=== PATIENT | female | born 1935 | race African-American/Black ===

== ENCOUNTER 2019-08-05 21:53 | Inpatient (IN) | payer MEDICARE, MEDICAID ==
[~2019-08-05] VITALS: Ht 154.9 cm; Wt 43.1 kg
--- NOTE | 2019-08-05 21:50 | NUR ---
ED Nurse Note: pt brought in by [facility] unit # [id number]. per EMS, pt was transferred from [facility] d/t FTT x 1 day. pt had low grade fever and was given 500mg of tylenol.
[2019-08-05 21:53] VITALS: BP 142/73
--- NOTE | 2019-08-05 22:00 | NUR ---
ED Nurse Note: pt on monitor tech, iv line established, pt was cleaned and dressed, linens changed. blood and urine sample sent to lab. bed placed at lowest position. x 2 agronomist rails.
[2019-08-05] MEDS ORDERED: POTASSIUM CHLO20 ME2 ORAL (22:03)
[2019-08-05] MEDS ORDERED: REMERON15 M1 ORAL (22:03)
[2019-08-05] MEDS ORDERED: ACETAMINOPHEN325 M1 ORAL (22:03)
[2019-08-05] MEDS ORDERED: MIRTAZAPINE15 MG ORAL (22:03)
[2019-08-05] MEDS ORDERED: VITAMIN B-12100 MCG ORAL (22:03)
[2019-08-05] MEDS ORDERED: COLACE100 MG ORAL (22:03)
[2019-08-05] MEDS ORDERED: MILK OF MA400 MG/51 ORAL (22:03)
[2019-08-05] MEDS ORDERED: COSOPT EYE DROP10 M1 OP (22:03)
[2019-08-05] MEDS ORDERED: DULCOLAX10 MG RC (22:03)
[2019-08-05] MEDS ORDERED: MULTIVITAMINS1 EAC8 ORAL (22:03)
[2019-08-05] MEDS ORDERED: FLEET ENEMA133 M1 RC (22:03)
[2019-08-05] MEDS ORDERED: ACETAMINOPHEN500 M3 ORAL (22:03)
[2019-08-05] MEDS ORDERED: NOVOLIN R100 UNIT/1 SUBQ (22:03)
[2019-08-05 22:24] LABS: BASOPHILS % (AUTO) 0.5 % (0.0-2.0); EOSINOPHILS % (AUTO) 0.6 % (0.0-3.0); HEMATOCRIT 42.8 % (37.0-47.0); HEMOGLOBIN 14.2 G/DL (12.0-16.0); LYMPHOCYTES % (AUTO) 24.9 % (20.0-45.0); MEAN CORPUSCULAR VOLUME 92 FL (80-99); MONOCYTES % (AUTO) 8.1 % (1.0-10.0); PLATELET COUNT 213 K/UL (150-450); RED BLOOD COUNT 4.67 M/UL (4.20-5.40); RED CELL DISTRIBUTION WIDTH 12.5 % (11.6-14.8); WHITE BLOOD COUNT 8.9 K/UL (4.8-10.8)
[2019-08-05 22:32] LABS: ANION GAP 8 mmol/L (5-15); BLOOD UREA NITROGEN 18 mg/dL (7-18); CALCIUM 9.2 MG/DL (8.5-10.1); CARBON DIOXIDE 27 MMOL/L (21-32); CHLORIDE 106 MMOL/L (98-107); CREATININE 0.5 MG/DL (0.55-1.30); SODIUM 141 MMOL/L (136-145)
--- NOTE | 2019-08-05 22:34 | Emergency Room Report ---
History of Present Illness General Chief Complaint: General Complaint Source: Medical Record Present Illness HPI 84-year-old female presents ED for evaluation. Brought in by EMS from nursing home facility. Reportedly having reduced appetite with possible fever at facility over the last few days. Patient nonverbal at baseline. Unable to provide any additional history at this time. No reported signs of distress on arrival. No nausea or vomiting. No cough or congestion. No other aggravating relieving factors. No other associated symptoms Allergies: Coded Allergies: LISINOPRIL (Verified Allergy, Unknown, 08/05/19) Patient History Past Medical History: DM Past Surgical History: none Pertinent Family History: none Social History: Denies: smoking, alcohol use, drug use Now: No Immunizations: UTD Reviewed Nursing Documentation: PMH: Agreed; PSxH: Agreed Nursing Documentation-PMH Past Medical History: No History, Except For Hx Diabetes: Yes Review of Systems All Other Systems: limited Physical Exam Vital Signs Date Time Temp Pulse Resp B/P (MAP) Pulse Ox O2 Delivery O2 Flow Rate FiO2 08/05/19 21:45 99.5 52 16 142/73 (96) 97 Room Air Sp02 EP Interpretation: reviewed, normal General Appearance: cachetic, lethargic, thin Head: normocephalic Eyes: bilateral eye normal inspection, bilateral eye PERRL ENT: normal ENT inspection Neck: normal inspection Respiratory: chest non-tender, lungs clear, normal breath sounds, speaking full sentences Cardiovascular #1: regular rate, rhythm, no edema Gastrointestinal: normal bowel sounds, non tender, soft, non-distended, no guarding, no rebound Rectal: deferred Genitourinary: no CVA tenderness Musculoskeletal: normal inspection Neurologic: other - nonverbal Psychiatric: other - nonverbal Skin: other - see nursing notes Lymphatic: normal inspection Medical Decision Making Diagnostic Impression: Primary Impression: Failure to thrive Qualified Codes: R62.7 - Adult failure to thrive Additional Impressions: Weakness UTI (urinary tract infection) Qualified Codes: N39.0 - Urinary tract infection, site not specified ER Course Hospital Course 84-year-old female presenting to ED with generalized weakness, poor appetite, reported fever Differential diagnoses include: Pneumonia, UTI, sepsis, dehydration, [place]/ unstable angina, failure to thrive Clinical course Patient placed on stretcher. On site monitor with stable vitals. After initial history and physical, I ordered labs, IV fluids, EKG, chest x-ray, blood cultures, UA. Labs - no leukocytosis, hb/hct stable, electrolytes ok, UA + bacteria EKG - NSR, no acute ischemic changes interpreted by me CXR - no acute process IVFs + abx given. Case discussed with Dr Saldivar and they agreed to admit patient to their service for further care and support I feel this is a highly complex case requiring extensive working including EKG/ Rhythm strip, Xray/CT/US, Blood/urine lab work, repeat exams while in ED, and administration of strong opiates/narcotics for pain control, admission to hospital or close patient follow up. Diagnosis - failure to thrive, weakness, UTI Patient admitted to floor in serious condition Labs Test 08/05/19 22:06 08/05/19 22:10 Urine Color Pale yellow Urine Appearance Clear Urine pH 5 (4.5-8.0) Urine Specific [place] 1.010 (1.005-1.035) Urine Protein Negative (NEGATIVE) Urine Glucose (UA) Negative (NEGATIVE) Urine Ketones Negative (NEGATIVE) Urine Blood 1+ (NEGATIVE) Urine Nitrite Negative (NEGATIVE) Urine Bilirubin Negative (NEGATIVE) Urine Urobilinogen Normal MG/DL (0.0-1.0) Urine Leukocyte Esterase 3+ (NEGATIVE) Urine RBC 0-2 /HPF (0 - 2) Urine WBC 30-40 /HPF (0 - 2) Urine Squamous Epithelial Cells None /LPF (NONE/OCC) Urine Bacteria Moderate /HPF (NONE) White Blood Count 8.9 K/UL (4.8-10.8) Red Blood Count 4.67 M/UL (4.20-5.40) Hemoglobin 14.2 G/DL (12.0-16.0) Hematocrit 42.8 % (37.0-47.0) Mean Corpuscular Volume 92 FL (80-99) Mean Corpuscular Hemoglobin 30.5 PG (27.0-31.0) Mean Corpuscular Hemoglobin Concent 33.3 G/DL (32.0-36.0) Red Cell Distribution Width 12.5 % (11.6-14.8) Platelet Count 213 K/UL (150-450) Mean Platelet Volume 6.8 FL (6.5-10.1) Neutrophils (%) (Auto) 66.0 % (45.0-75.0) Lymphocytes (%) (Auto) 24.9 % (20.0-45.0) Monocytes (%) (Auto) 8.1 % (1.0-10.0) Eosinophils (%) (Auto) 0.6 % (0.0-3.0) Basophils (%) (Auto) 0.5 % (0.0-2.0) Sodium Level 141 MMOL/L (136-145) Potassium Level 4.0 MMOL/L (3.5-5.1) Chloride Level 106 MMOL/L (98-107) Carbon Dioxide Level 27 MMOL/L (21-32) Anion Gap 8 mmol/L (5-15) Blood Urea Nitrogen 18 mg/dL (7-18) Creatinine 0.5 MG/DL (0.55-1.30) Estimat Glomerular Filtration Rate mL/min (>60) Glucose Level 95 MG/DL (74-106) Lactic Acid Level 0.80 mmol/L (0.4-2.0) Calcium Level 9.2 MG/DL (8.5-10.1) Total Bilirubin 0.6 MG/DL (0.2-1.0) Aspartate Amino Transf (AST/SGOT) 17 U/L (15-37) Alanine Aminotransferase (ALT/SGPT) 11 U/L (12-78) Alkaline Phosphatase 121 U/L (46-116) Pro-B-Type Natriuretic Peptide 501 pg/mL (0-125) Total Protein 7.3 G/DL (6.4-8.2) Albumin 3.2 G/DL (3.4-5.0) Globulin 4.1 g/dL Albumin/Globulin Ratio 0.8 (1.0-2.7) EKG Diagnostic Results Rate: normal Rhythm: NSR ST Segments: no acute changes ASA given to the pt in ED: No Rhythm Strip Diag. Results EP Interpretation: yes Rhythm: NSR, no PVC's, no ectopy Chest X-Ray Diagnostic Results Chest X-Ray Diagnostic Results : Chest X-Ray Ordered: Yes # of Views/Limited/Complete: 1 View Indication: Other EP Interpretation: Yes Interpretation: no consolidation, no effusion, no pneumothorax, no acute cardiopulmonary disease Impression: No acute disease Electronically Signed by: Electronically signed by Christ Valencia MD Last Vital Signs Date Time Temp Pulse Resp B/P (MAP) Pulse Ox O2 Delivery O2 Flow Rate FiO2 08/05/19 21:45 99.5 52 16 142/73 (96) 97 Room Air Status: improved Disposition: ADMITTED INPATIENT Condition: Serious Christ Valencia MD Aug 05, 2019 22:34
--- NOTE | 2019-08-05 22:35 | NUR ---
ED Nurse Note: xray at bedside
[2019-08-05 22:37] LABS: APPEARANCE,URINE CLEAR; BILIRUBIN, URINE NEGATIVE (NEGATIVE); COLOR,URINE PALE YELLOW; GLUCOSE, URINE (UA) NEGATIVE (NEGATIVE); KETONES,URINE NEGATIVE (NEGATIVE); LEUKOCYTE ESTERASE ,URINE 3+ (NEGATIVE); NITRITE,URINE NEGATIVE (NEGATIVE); PH,URINE 5 (4.5-8.0); PROTEIN,URINE NEGATIVE (NEGATIVE); UROBILINOGEN,URINE NORMAL MG/DL (0.0-1.0)
--- NOTE | 2019-08-05 22:40 | NUR ---
ED Nurse Note: xray completed
[2019-08-05 22:43] LABS: ALANINE AMINOTRANSFERASE 11 U/L (12-78); ALBUMIN 3.2 G/DL (3.4-5.0); ALBUMIN/GLOBULIN RATIO 0.8 (1.0-2.7); ALKALINE PHOSPHATASE 121 U/L (46-116); ASPARTATE AMINO TRANSFERASE 17 U/L (15-37); BILIRUBIN,TOTAL 0.6 MG/DL (0.2-1.0)
--- NOTE | 2019-08-05 22:51 | NUR ---
ED Nurse Note: son and daughter in law (jigna, and lashay) at bedside with pt.
--- NOTE | 2019-08-05 23:31 | NUR ---
ED Nurse Note: TELEPHONE REPORT GIVEN TO VIGNSEH GRIER
[2019-08-05] MEDS ORDERED: cefTRIAXone 1 GM in NS 55 ML IVPB ONE (23:45)
--- NOTE | 2019-08-05 23:50 | NUR ---
ED Nurse Note: pt sent up with biju adams. pt on room air, vss, pt has no belongings. pt shows no acute signs of distress. family at bedside.
[2019-08-06] VITALS: BP 133/75
--- NOTE | 2019-08-06 | NUR ---
NURSE NOTES: Patient received from EMT Tanner. On room air with no s/s of SOB. Yellow urine draining via Conway catheter. Right forearm 20g IV intact and asymptomatic. Small 1cm skin alteration found on coccyx area. Photos taken and uploaded to file. Patient is nonverbal and confused. She is bedbound with bilateral lower extremity contractures. Patient had loose stool x1. C.Diff sample was obtained and sent to lab. No admission orders at time. Called Doctor Yariel and endorsed to night staff. Reached out to doctor Jemma reached out as well. Family at bedside.
[2019-08-06 04:00] VITALS: BP 151/59
[2019-08-06 08:00] VITALS: BP 161/72
--- NOTE | 2019-08-06 08:02 | NUR ---
HAND-OFF: Report given VIGNESH Harper. Patient in bed in stable condition.
[2019-08-06] MEDS ORDERED: Miralax 17gm pkt ORAL PRN (08:30)
[2019-08-06] MEDS ORDERED: LORazepam Inj 2mg/ml 1ml IV PRN (08:30)
[2019-08-06] MEDS ORDERED: Zolpidem 5mg tab ORAL PRN (08:30)
[2019-08-06] MEDS ORDERED: Morphine Sulfate 2mg/ml Inj(IV/IM USE ONLY) IVP PRN (08:30)
[2019-08-06] MEDS: Heparin 5000 units/ml inj SUBQ SCH ×2 (08:53→21:36)
--- NOTE | 2019-08-06 09:42 | NUR ---
NURSE NOTES: Received pt from VIGNESH GRIER at 0730. Pt is confused and non verbal. pt is in RA, no SOB or acute respiratory distress noted. pt has intact iv access RFA 20G SL. Pt has Conway cath in place and running well. a PHYSIOLOGY TEACHER fed breakfast to pt. pt is on calorie count. Dr POLLARD is aware about admission and put admission orders. all needs attended, bed is locked and is in the lowest position. call light within easy reach. will continue to monitor.
--- NOTE | 2019-08-06 09:51 | NUR ---
RD ASSESSMENT & RECOMMENDATIONS SEE CARE ACTIVITY FOR COMPLETE ASSESSMENT DAILY ESTIMATED NEEDS: Needs based on Wound, 46kg 30-35 kcals/kg 6178-2535 total kcals 1.25-1.5 g protein/kg 58-69 g total protein 25-30 mL/kg 6297-0720 total fluid mLs NUTRITION DIAGNOSIS: Increased kcal and pro needs r/t wound healing as evidenced by pt w/ coccyx pressure ulcer, w/ generalized mild to moderate wasting. CURRENT DIET: Regular puree w/ HTL PO DIET RECOMMENDATIONS: Liberalized Regular diet / texture per CASSEROLE PREPARER ADDITIONAL RECOMMENDATIONS: 1) Obtain calibrated bed scale wts 2) F/up w/ kcal count 3) Add Ensure Enlive TID w/ meals 4) CASSEROLE PREPARER for appropriate texture 5) Wound care: add Shiraz BID + Vit C 250mg daily F/up w/ WC eval
--- NOTE | 2019-08-06 11:06 | Consultation ---
History of Present Illness General Date patient seen: Aug 06, 2019 Time patient seen: 10:05 Chief Complaint: General Complaint Referring physician: Dr Saldivar Reason for Consultation: hospitalist Present Illness HPI 84 year, resident of intermediate facility, with past medical history of HTN , asthma, diabetes mellitus, DNR status, presented with reported fever and reduced appetite for the several days. Patient nonverbal at baseline and unable to provide any history. No nausea or vomiting were reported. No cough or congestion were reported. Upon evaluation patient had low-grade fever 99.5 was bradycardic with a heart rate 52. EKG reveals sinus bradycardia no acute ischemic changes. Chest x-ray revealed no acute cardiopulmonary pathology. Urinalysis revealed pyuria moderate bacteria laboratory work-up revealed no leukocytosis stable hemoglobin hematocrit. Stable chemistry and renal parameters. Glucose 95. Lactic acid 0.8. Stable LFT. proBNP 501 albumin 3.2 in the emergency department patient started on the IV fluids and empiric antibiotics admitted for further management. S old female Allergies: Coded Allergies: LISINOPRIL (Verified Allergy, Unknown, 08/05/19) Medication History Scheduled Cyanocobalamin (Vitamin B-12), 500 MCG ORAL DAILY, (Reported) Docusate Sodium* (Colace*), 100 MG ORAL DAILY, (Reported) Dorzolamide Hcl/Timolol Maleat (Cosopt Eye Drops), 10 ML OP BID, (Reported) Insulin Regular, Human* (Novolin R*), 0 SUBQ .SLIDING SCALE, (Reported) Magnesium Hydroxide* (Milk Of Magnesia*), 30 ML ORAL DAILY, (Reported) Mirtazapine (Remeron), 15 MG ORAL BEDTIME, (Reported) Mirtazapine* (Remeron*), 7.5 MG ORAL BEDTIME, (Reported) Multivitamin With Minerals (Multivitamins With Minerals*), 1 TAB ORAL DAILY, ( Reported) Potassium Chloride (Potassium Chloride), 7.5 ML ORAL QHS, (Reported) Scheduled PRN Acetaminophen* (Acetaminophen 325MG Tablet*), 650 MG ORAL Q4H PRN for Mild Pain (Pain Scale 1-3), (Reported) Acetaminophen* (Acetaminophen Extra Strength*), 1,000 MG ORAL Q4H PRN for Moderate Pain (Pain Scale 4-6), (Reported) Na Phos,M-B/Na Phos,Di-Ba (Fleet Enema), 133 ML RC PRN PRN for Constipation, ( Reported) Miscellaneous Medications Bisacodyl (Dulcolax), 10 MG RC, (Reported) Patient History History Provided By: Medical Record Healthcare decision maker Nica Peralta Resuscitation status Do Not Resuscitate Advanced Directive on File No Review of Systems ROS Narrative unable to obtain due to nonverbal status Physical Exam General Appearance: no apparent distress, cachetic, other - awake, nonverbal AA female in NAD Lines, tubes and drains: peripheral HEENT: normocephalic, atraumatic, anicteric Neck: non-tender, supple Respiratory/Chest: lungs clear, no respiratory distress, no accessory muscle use Cardiovascular/Chest: bradycardia Abdomen: normal bowel sounds, non tender, soft Extremities: no calf tenderness, no edema, other - contracted BLE Neurologic: abnormal gait, alert - nonverbal Musculoskeletal: atrophy Last 24 Hour Vital Signs Date Time Temp Pulse Resp B/P (MAP) Pulse Ox O2 Delivery O2 Flow Rate FiO2 08/06/19 08:00 98.4 60 17 161/72 (101) 96 08/06/19 04:00 97.3 52 18 151/59 (89) 99 08/06/19 01:50 Room Air 08/06/19 00:00 97.3 73 16 133/75 (94) 99 08/05/19 23:50 99.2 56 13 140/69 100 Room Air 08/05/19 21:53 99.5 56 22 142/73 98 Room Air 08/05/19 21:53 56 22 Room Air 08/05/19 21:45 99.5 52 16 142/73 (96) 97 Room Air Intake and Output 08/05/19 08/06/19 19:00 07:00 Intake Total 1000 ml Output Total 450 ml Balance 550 ml Intake Oral 0 ml IV Total 1000 ml Output Urine Total 450 ml # Voids 1 # Bowel Movements 4 Laboratory Tests Test 08/05/19 22:06 08/05/19 22:10 Urine Color Pale yellow Urine Appearance Clear Urine pH 5 (4.5-8.0) Urine Specific [place] 1.010 (1.005-1.035) Urine Protein Negative (NEGATIVE) Urine Glucose (UA) Negative (NEGATIVE) Urine Ketones Negative (NEGATIVE) Urine Blood 1+ (NEGATIVE) H Urine Nitrite Negative (NEGATIVE) Urine Bilirubin Negative (NEGATIVE) Urine Urobilinogen Normal MG/DL (0.0-1.0) Urine Leukocyte Esterase 3+ (NEGATIVE) H Urine RBC 0-2 /HPF (0 - 2) Urine WBC 30-40 /HPF (0 - 2) H Urine Squamous Epithelial Cells None /LPF (NONE/OCC) Urine Bacteria Moderate /HPF (NONE) H White Blood Count 8.9 K/UL (4.8-10.8) Red Blood Count 4.67 M/UL (4.20-5.40) Hemoglobin 14.2 G/DL (12.0-16.0) Hematocrit 42.8 % (37.0-47.0) Mean Corpuscular Volume 92 FL (80-99) Mean Corpuscular Hemoglobin 30.5 PG (27.0-31.0) Mean Corpuscular Hemoglobin Concent 33.3 G/DL (32.0-36.0) Red Cell Distribution Width 12.5 % (11.6-14.8) Platelet Count 213 K/UL (150-450) Mean Platelet Volume 6.8 FL (6.5-10.1) Neutrophils (%) (Auto) 66.0 % (45.0-75.0) Lymphocytes (%) (Auto) 24.9 % (20.0-45.0) Monocytes (%) (Auto) 8.1 % (1.0-10.0) Eosinophils (%) (Auto) 0.6 % (0.0-3.0) Basophils (%) (Auto) 0.5 % (0.0-2.0) Sodium Level 141 MMOL/L (136-145) Potassium Level 4.0 MMOL/L (3.5-5.1) Chloride Level 106 MMOL/L (98-107) Carbon Dioxide Level 27 MMOL/L (21-32) Anion Gap 8 mmol/L (5-15) Blood Urea Nitrogen 18 mg/dL (7-18) Creatinine 0.5 MG/DL (0.55-1.30) L Estimat Glomerular Filtration Rate mL/min (>60) Glucose Level 95 MG/DL (74-106) Lactic Acid Level 0.80 mmol/L (0.4-2.0) Calcium Level 9.2 MG/DL (8.5-10.1) Total Bilirubin 0.6 MG/DL (0.2-1.0) Aspartate Amino Transf (AST/SGOT) 17 U/L (15-37) Alanine Aminotransferase (ALT/SGPT) 11 U/L (12-78) L Alkaline Phosphatase 121 U/L (46-116) H Pro-B-Type Natriuretic Peptide 501 pg/mL (0-125) H Total Protein 7.3 G/DL (6.4-8.2) Albumin 3.2 G/DL (3.4-5.0) L Globulin 4.1 g/dL Albumin/Globulin Ratio 0.8 (1.0-2.7) L Microbiology Date/Time Source Procedure Growth Status 08/05/19 22:30 Rectum Received Height (Feet): 5 Height (Inches): 1.00 Weight (Pounds): 101 Medications Current Medications Medications (Trade) Dose Ordered Sig/Patricia Route PRN Reason Start Time Stop Time Status Last Admin Dose Admin Acetaminophen (Tylenol) 650 mg Q4H PRN ORAL fever 08/06/19 08:30 09/05/19 08:29 Ceftriaxone Sodium 1 gm/ Dextrose 55 ml @ 110 mls/hr Q24H IVPB 08/06/19 21:00 08/13/19 20:59 Dextrose (Dextrose 50%) 25 ml Q30M PRN IV Hypoglycemia 08/06/19 08:30 09/05/19 08:29 Dextrose (Dextrose 50%) 50 ml Q30M PRN IV Hypoglycemia 08/06/19 08:30 09/05/19 08:29 Heparin Sodium (Porcine) (Heparin 5000 units/ml) 5,000 units EVERY 12 HOURS SUBQ 08/06/19 09:00 09/05/19 08:59 08/06/19 08:53 Lorazepam (Ativan 2mg/ml 1ml) 0.5 mg Q4H PRN IV For Anxiety 08/06/19 08:30 08/13/19 08:29 Morphine Sulfate (Morphine Sulfate) 1 mg Q4H PRN IVP For Pain 08/06/19 08:30 08/13/19 08:29 Ondansetron HCl (Zofran) 4 mg Q6H PRN IVP Nausea & Vomiting 08/06/19 08:30 09/05/19 08:29 Polyethylene Glycol (Miralax) 17 gm HSPRN PRN ORAL Constipation 08/06/19 08:30 09/05/19 08:29 Zolpidem Tartrate (Ambien) 5 mg HSPRN PRN ORAL Insomnia 08/06/19 08:30 08/13/19 08:29 Assessment/Plan Assessment/Plan: ASSESSMENT UTI Cachexia, likely protein calorie malnutrition HTN Bradycardia Asthma Contractures PLAN OF CARE MS floor gentle IVF empiric abx, fup with cx dietary eval BP management- add Cozaar, along with Clonidine prn, optimize further as needed ECG this am due to coby O2 HHN prn, no evidence of asthma exacerbation DVT prophylaxis BS management with SSI sensitive check HgA1c swallow eval asp precautions PT eval and Rx bowel regimen supportive care case discussed and evaluated by supervising physician Kallie Mendoza NP Aug 06, 2019 11:06
[2019-08-06] MEDS ORDERED: Albuterol/Ipratropium 3ml neb HHN PRN (11:15)
[2019-08-06] MEDS: NovoLOG Insulin Flexpen SUBQ SCH ×3 (11:30→21:00)
[2019-08-06 11:56] VITALS: BP 151/86
[2019-08-06] MEDS: Losartan 25mg tab ORAL SCH (12:01)
--- NOTE | 2019-08-06 13:30 | Consultation ---
DATE OF CONSULTATION: 08/06/2019 CONSULTING PHYSICIAN: Víctor Fonseca M.D. CHIEF COMPLAINT: Failure to thrive. HISTORY OF PRESENT ILLNESS: Most of the history was obtained per chart. The patient is nonverbal. The patient was brought by from the nursing facility for decreased p.o. intake and altered. PAST MEDICAL HISTORY: Diabetes and hypertension. PAST SURGICAL HISTORY: Unknown. ALLERGIES: No known drug allergies. MEDICATIONS: Please see medication reconciliation list. SOCIAL HISTORY: Currently lives in a shelter. No recent history of tobacco, alcohol, or drug abuse. FAMILY HISTORY: Noncontributory. REVIEW OF SYSTEMS: Unable to obtain. PHYSICAL EXAMINATION: VITAL SIGNS: Temperature 97.3, pulse 52, respirations 18, blood pressure is . HEENT: Normocephalic and atraumatic. Sclerae anicteric. NECK: Supple. No evidence of obvious lymphadenopathy. CARDIOVASCULAR: Regular rate and rhythm. Plus S1 and S2. No obvious murmur. LUNGS: Decreased breath sounds bilaterally based on the supine exam. ABDOMEN: Soft and nontender. No rebound. No guarding. No peritoneal sign. EXTREMITIES: No cyanosis. No clubbing. No edema. LABORATORY DATA: White count is 8.9, hemoglobin 14, hematocrit 42, platelets are 213,000. Chem-7 grossly normal. ASSESSMENT AND PLAN: This is an 84-year-old female, brought from the shelter, poor historian, seems that the patient has history of hypertension at baseline and possible diabetes. Per nurse, the patient is overnight. Plan to treat her UTI, may be as a cause of altered mental status for this elderly patient. We will order swallow evaluation to see if patient can swallow, meanwhile we will put her on pureed with honey thick food. If she passes the swallow, we are going to calculate calorie count to see how much she eats and if she is not eating enough, we will consider doing G-tube placement at that time. I want to thank, Dr. Reynold Saldivar, for this kind referral. Víctor Fonseca M.D. DR: MAIRA JOB#: [id number] CC: Reynold Saldivar D.O.
--- NOTE | 2019-08-06 15:45 | History and Physical Report ---
DATE OF ADMISSION: 08/05/2019 DATE AND TIME SEEN: 08/06/2019 at 9 a.m. CONSULTANTS: 1. Arnaldo Easton M.D. 2. Víctor Fonseca M.D. 3. Mary Martinez M.D. CHIEF COMPLAINTS: Failure to thrive, weakness, wheezing, UTI. BRIEF HISTORY: This is an 84-year-old female from [facility], presented with the above-mentioned diagnoses, admitted to medical floor for further treatment. Currently, slightly confused, in bed, sleepy, not talking much. PAST MEDICAL HISTORY: Include failure to thrive, weakness, , and diabetes. PAST SURGICAL HISTORY: Unknown. MEDICATIONS: Include ceftriaxone, heparin, Tylenol, morphine, Zofran, lorazepam, and zolpidem. ALLERGIES: Lisinopril. SOCIAL HISTORY: No smoking. No alcohol. No intravenous drug abuse. FAMILY HISTORY: Noncontributory. REVIEW OF SYSTEMS: Unavailable. PHYSICAL EXAMINATION: GENERAL: Lethargic in bed, nonverbal. VITAL SIGNS: Temperature 98 degrees, pulse 60, respirations 17, blood pressure 161/72. CARDIOVASCULAR: No murmur. LUNGS: Distant and clear. ABDOMEN: Bowel sounds positive. Nontender and nondistended. EXTREMITIES: Showed no cyanosis, clubbing or edema. NEUROLOGIC: The patient is flaccid in bed, not following directions. LABORATORY DATA: Labs at this time show CBC is normal. BMP, creatinine 0.5. Alkaline phosphatase 121. BNP is 501. Albumin 3.2. Urinalysis shows 3+ leukocyte esterase. ASSESSMENT: 1. Failure to thrive. 2. Weakness. 3. Slight wheezing. 4. UTI. 5. Diabetes. 6. Malnutrition. PLAN: Blood sugar control. Antibiotic per Infectious Disease. PT, OT, and dietary followup. Resume home medications. CBC and BMP in the morning. . Reynold Saldivar D.O. DR: ZACKARY JOB#: [id number] CC:
[2019-08-06 16:00] VITALS: BP 103/71
--- NOTE | 2019-08-06 19:14 | NUR ---
HAND-OFF: Report given to VIGNESH GRIER.
--- NOTE | 2019-08-06 19:30 | NUR ---
NURSE NOTES: Received report from VIGNESH Harper. Patient is resting in bed with IV fluids running to right forearm 20G. She is nonverbal and confused. Bilateral lower extremities are contractured. Bilateral heels are elevated and patient is turned to the right side. Partial linen change is done. No s/s of pain noted. Family is at bedside. Will continue to monitor.
[2019-08-06 20:00] VITALS: BP 174/67
[2019-08-06] MEDS: cefTRIAXone 1 GM in D5W 55 ML IVPB SCH (21:35)
[2019-08-07] VITALS: BP 149/61
[2019-08-07 04:00] VITALS: BP 162/69
[2019-08-07 05:40] LABS: BASOPHILS % (AUTO) 0.9 % (0.0-2.0); HEMATOCRIT 38.5 % (37.0-47.0); HEMOGLOBIN 12.7 G/DL (12.0-16.0); LYMPHOCYTES % (AUTO) 22.7 % (20.0-45.0); MEAN CORPUSCULAR VOLUME 92 FL (80-99); NEUTROPHILS % (AUTO) 66.4 % (45.0-75.0); PLATELET COUNT 161 K/UL (150-450); RED BLOOD COUNT 4.17 M/UL (4.20-5.40); RED CELL DISTRIBUTION WIDTH 11.8 % (11.6-14.8); WHITE BLOOD COUNT 6.4 K/UL (4.8-10.8)
[2019-08-07 06:28] LABS: ALANINE AMINOTRANSFERASE 9 U/L (12-78); ALBUMIN 2.8 G/DL (3.4-5.0); ALBUMIN/GLOBULIN RATIO 0.7 (1.0-2.7); ALKALINE PHOSPHATASE 103 U/L (46-116); ANION GAP 6 mmol/L (5-15); ASPARTATE AMINO TRANSFERASE 15 U/L (15-37); BILIRUBIN,TOTAL 0.5 MG/DL (0.2-1.0); BLOOD UREA NITROGEN 10 mg/dL (7-18); CALCIUM 8.5 MG/DL (8.5-10.1); CARBON DIOXIDE 27 MMOL/L (21-32); CHLORIDE 107 MMOL/L (98-107); CHOLESTEROL 247 MG/DL (< 200); CREATININE 0.5 MG/DL (0.55-1.30); HDL CHOLESTEROL 60 MG/DL (40-60); POTASSIUM 3.6 MMOL/L (3.5-5.1); SODIUM 140 MMOL/L (136-145); TRIGLYCERIDES 43 MG/DL (30-150)
[2019-08-07] MEDS: NovoLOG Insulin Flexpen SUBQ SCH ×4 (06:30→20:38)
--- NOTE | 2019-08-07 06:52 | NUR ---
NURSE NOTES: Received report from Konstantin. Bed in low and locked position. Provided safe environment. IV site noted, IV fluid infusing. Changed IV fluid. Skin is warm and dry to touch. Abdomen is soft and non distended. Patient is on a calorie count. No s/s of pain or discomfort noted. Respiration is even and unlabored. NO belongings noted. Call light is at bedside. Will continue plan of care.
--- NOTE | 2019-08-07 06:59 | NUR ---
HAND-OFF: Report given to VIGNESH Alonso. Patient transferred to room 409-1. IV fluids transferred with. Patient is in stable condition.
--- NOTE | 2019-08-07 07:15 | NUR ---
NURSE NOTES: Received report from VIGNESH Alonso. Bed in low and locked position. Provided safe environment. IV site noted, IV fluid infusing. Skin is warm and dry to touch. Abdomen is soft and non distended. Patient is on a calorie count. No s/s of pain or discomfort noted. Respiration is even and unlabored. Call light is at bedside. Will continue plan of care.
--- NOTE | 2019-08-07 07:23 | NUR ---
HAND-OFF: Report given to VIGNESH Zafar.
[2019-08-07 08:00] VITALS: BP 130/79
[2019-08-07] MEDS: Losartan 25mg tab ORAL SCH (08:40)
[2019-08-07] MEDS: Heparin 5000 units/ml inj SUBQ SCH ×2 (08:41→20:38)
[2019-08-07] MEDS ORDERED: Tubing IV Secondary IV ONE (09:17)
--- NOTE | 2019-08-07 09:41 | General Progress Note ---
Assessment/Plan Problem List: (1) Diabetes ICD Codes: E11.9 - Type 2 diabetes mellitus without complications SNOMED: 34629240 (2) Malnutrition ICD Codes: E46 - Unspecified protein-calorie malnutrition SNOMED: 17495105 (3) Failure to thrive SNOMED: 45475196 Qualifiers: Qualified Codes: R62.7 - Adult failure to thrive (4) Weakness ICD Codes: R53.1 - Weakness SNOMED: 17108887 (5) UTI (urinary tract infection) ICD Codes: N39.0 - Urinary tract infection, site not specified SNOMED: 68468021 Qualifiers: Qualified Codes: N39.0 - Urinary tract infection, site not specified Status: stable, progressing Assessment/Plan: pt diet abx cbc bmp am Subjective Constitutional: Reports: weakness Allergies: Coded Allergies: LISINOPRIL (Verified Allergy, Unknown, 08/05/19) All Systems: reviewed and negative except above Subjective calm in bed Objective Last 24 Hour Vital Signs Date Time Temp Pulse Resp B/P (MAP) Pulse Ox O2 Delivery O2 Flow Rate FiO2 08/07/19 08:40 130/79 08/07/19 08:00 98.6 66 20 130/79 (96) 99 08/07/19 04:00 98.6 55 18 162/69 (100) 96 08/07/19 00:00 98.2 60 17 149/61 (90) 96 08/06/19 21:35 174/67 08/06/19 21:00 Room Air 08/06/19 20:00 98.3 61 16 174/67 (102) 96 08/06/19 16:00 98.3 69 18 103/71 (82) 97 08/06/19 12:01 151/86 08/06/19 11:56 98.1 73 17 151/86 (107) 97 Intake and Output 08/06/19 08/07/19 19:00 07:00 Intake Total 850 ml 600 ml Output Total 300 ml 600 ml Balance 550 ml 0 ml Intake Oral 500 ml IV Total 350 ml 600 ml Output Urine Total 300 ml 600 ml # Voids 1 # Bowel Movements 4 3 Laboratory Tests 08/07/19 04:00: Hemoglobin A1c [Pending] 08/07/19 04:45: White Blood Count 6.4, Red Blood Count 4.17L, Hemoglobin 12.7, Hematocrit 38.5, Mean Corpuscular Volume 92, Mean Corpuscular Hemoglobin 30.5, Mean Corpuscular Hemoglobin Concent 33.0, Red Cell Distribution Width 11.8, Platelet Count 161, Mean Platelet Volume 6.7, Neutrophils (%) (Auto) 66.4, Lymphocytes (%) (Auto) 22.7, Monocytes (%) (Auto) 9.0, Eosinophils (%) (Auto) 1.0, Basophils (%) (Auto ) 0.9, Sodium Level 140, Potassium Level 3.6, Chloride Level 107, Carbon Dioxide Level 27, Anion Gap 6, Blood Urea Nitrogen 10, Creatinine 0.5L, Estimat Glomerular Filtration Rate , Glucose Level 87, Calcium Level 8.5, Total Bilirubin 0.5, Aspartate Amino Transf (AST/SGOT) 15, Alanine Aminotransferase ( ALT/SGPT) 9L, Alkaline Phosphatase 103, Total Protein 6.6, Albumin 2.8L, Globulin 3.8, Albumin/Globulin Ratio 0.7L, Triglycerides Level 43, Cholesterol Level 247H, LDL Cholesterol 171H, HDL Cholesterol 60, Cholesterol/HDL Ratio 4.1 , Thyroid Stimulating Hormone (TSH) 0.673 Height (Feet): 5 Height (Inches): 1.00 Weight (Pounds): 101 General Appearance: lethargic EENT: normal ENT inspection Neck: normal alignment Cardiovascular: normal peripheral pulses, normal rate, regular rhythm Respiratory/Chest: chest wall non-tender, lungs clear, normal breath sounds Abdomen: normal bowel sounds, non tender, soft Extremities: normal inspection Edema: no edema noted Arm (L), no edema noted Arm (R), no edema noted Leg (L), no edema noted Leg (R), no edema noted Pedal (L), no edema noted Pedal (R), no edema noted Generalized Neurologic: responsive, motor weakness Skin: normal pigmentation, warm/dry Reynold Saldivar DO Aug 07, 2019 09:41
--- NOTE | 2019-08-07 11:12 | GI Progress Note ---
Assessment/Plan Problems: (1) Weakness ICD Codes: R53.1 - Weakness SNOMED: 80886302 (2) Malnutrition ICD Codes: E46 - Unspecified protein-calorie malnutrition SNOMED: 40833544 (3) Failure to thrive SNOMED: 05742755 Qualifiers: Qualified Codes: R62.7 - Adult failure to thrive Status: unchanged Status Narrative Discussed with Dr. Fonseca Assessment/Plan Follow-up swallow evaluation Continue calorie count Consider PEG if nutritional needs are not met Push p.o. Strict aspiration precautions One-to-one feeder Consider Marinol Follow labs The patient was seen and examined at bedside and all new and available data was reviewed in the patients chart. I agree with the above findings, impression and plan. (Patient seen earlier today. Signature stamp does not reflect patient encounter time.). - Víctor Fonseca MD Subjective Subjective Limited Objective Last 24 Hour Vital Signs Date Time Temp Pulse Resp B/P (MAP) Pulse Ox O2 Delivery O2 Flow Rate FiO2 08/07/19 09:00 Room Air 08/07/19 08:40 130/79 08/07/19 08:00 98.6 66 20 130/79 (96) 99 08/07/19 04:00 98.6 55 18 162/69 (100) 96 08/07/19 00:00 98.2 60 17 149/61 (90) 96 08/06/19 21:35 174/67 08/06/19 21:00 Room Air 08/06/19 20:00 98.3 61 16 174/67 (102) 96 08/06/19 16:00 98.3 69 18 103/71 (82) 97 08/06/19 12:01 151/86 08/06/19 11:56 98.1 73 17 151/86 (107) 97 Intake and Output 08/06/19 08/07/19 19:00 07:00 Intake Total 850 ml 600 ml Output Total 300 ml 600 ml Balance 550 ml 0 ml Intake Oral 500 ml IV Total 350 ml 600 ml Output Urine Total 300 ml 600 ml # Voids 1 # Bowel Movements 4 3 Laboratory Tests Test 08/07/19 04:45 White Blood Count 6.4 K/UL (4.8-10.8) Red Blood Count 4.17 M/UL (4.20-5.40) L Hemoglobin 12.7 G/DL (12.0-16.0) Hematocrit 38.5 % (37.0-47.0) Mean Corpuscular Volume 92 FL (80-99) Mean Corpuscular Hemoglobin 30.5 PG (27.0-31.0) Mean Corpuscular Hemoglobin Concent 33.0 G/DL (32.0-36.0) Red Cell Distribution Width 11.8 % (11.6-14.8) Platelet Count 161 K/UL (150-450) Mean Platelet Volume 6.7 FL (6.5-10.1) Neutrophils (%) (Auto) 66.4 % (45.0-75.0) Lymphocytes (%) (Auto) 22.7 % (20.0-45.0) Monocytes (%) (Auto) 9.0 % (1.0-10.0) Eosinophils (%) (Auto) 1.0 % (0.0-3.0) Basophils (%) (Auto) 0.9 % (0.0-2.0) Sodium Level 140 MMOL/L (136-145) Potassium Level 3.6 MMOL/L (3.5-5.1) Chloride Level 107 MMOL/L (98-107) Carbon Dioxide Level 27 MMOL/L (21-32) Anion Gap 6 mmol/L (5-15) Blood Urea Nitrogen 10 mg/dL (7-18) Creatinine 0.5 MG/DL (0.55-1.30) L Estimat Glomerular Filtration Rate mL/min (>60) Glucose Level 87 MG/DL (74-106) Hemoglobin A1c 5.4 % (4.3-6.0) Calcium Level 8.5 MG/DL (8.5-10.1) Total Bilirubin 0.5 MG/DL (0.2-1.0) Aspartate Amino Transf (AST/SGOT) 15 U/L (15-37) Alanine Aminotransferase (ALT/SGPT) 9 U/L (12-78) L Alkaline Phosphatase 103 U/L (46-116) Total Protein 6.6 G/DL (6.4-8.2) Albumin 2.8 G/DL (3.4-5.0) L Globulin 3.8 g/dL Albumin/Globulin Ratio 0.7 (1.0-2.7) L Triglycerides Level 43 MG/DL (30-150) Cholesterol Level 247 MG/DL (< 200) H LDL Cholesterol 171 mg/dL (<100) H HDL Cholesterol 60 MG/DL (40-60) Cholesterol/HDL Ratio 4.1 (3.3-4.4) Thyroid Stimulating Hormone (TSH) 0.673 uiU/mL (0.358-3.740) Height (Feet): 5 Height (Inches): 1.00 Weight (Pounds): 101 General Appearance: alert Cardiovascular: normal rate Respiratory/Chest: normal breath sounds Abdominal Exam: soft Genitourinary/Rectal: normal rectal exam Extremities: normal range of motion Objective Reported by the RN the patient tolerated approximately 25% of her meals Remi Rico NP Aug 07, 2019 11:12
--- NOTE | 2019-08-07 11:14 | Cardiology Report ---
APPROVED REPORT EKG Measurement Heart [id number] OK 134P77 [id number] Normal sinus rhythm Nonspecific T wave abnormality Abnormal ECG
--- NOTE | 2019-08-07 11:41 | NUR ---
SWALLOW/SPEECH THERAPY NOTE: REFERRED FOR SWALLOW EVAL BY DR POLLARD, SEE FULL REPORT TO FOLLOW. DYSPHAGIA RISK FACTORS FOR THIS 84 YO ADVANCED AGED FEMALE: ACUTE ISSUES: FTT, POOR INTAKE, FEVER, WEAK, UTI, ALOC, LUNGS CLEAR NOW ON CXR, LOW PULSE HIGH BP, RR 17/18/20 ON ROOM AIR RELEVANT MEDS: ATIVAN, ALBUTEROL H/O OROPHARYNGEAL DYSPHAGIA, PROTEIN-CALORIE MALNUTRITION, MDD, EARLY ONSET ALZHEIMER'S DZ DEMENTIA, BRONCHITIS, RESPIRATORY D/O, HTN, ASTHMA, MUSCLE WEAKNESS, AND DM2. POLST STATES NO TUBE FEEDINGS. AT SNF ON A CCHO SOFT BITE SIZE DIET AND THIN LIQUIDS NONFAT MILK CURRENTLY ON A PUREED DIET AND HONEY THICK LIQUIDS WITH POOR INTAKE 25/25/50%. PER VIGNESH CANTRELL NOT VERY RECEPTIVE TO CRUSHED MEDS WITH PUREED. PER RD NORMAL WEIGHT POOR INTAKE SEND LIBERALIZE DIET AND SEND ENSURE ENLIVE TID. PER DTR SHE MAY BE CLOSING EYES AND NOT TALKING BECAUSE OF HER CONFUSION FROM DEMENTIA. PT'S SON TO BRING IN [place] FOOD AFTER WORK. DTR WILLING TO SEND UBER EATS IF [facility] WHO SPEAKS [place] CAN FEED HER (NONE AVAILABLE PER RN ONLY ETIOPIAN RNS THAT CANNOT BE FEEDERS) ALERT BUT KEEPS HER EYES CLOSED. ROOM AIR NONVERBAL INITIAL IMPRESSIONS: REFUSING PO INTAKE BY CLOSING HER MOUTH OR CLENCHING AND GRINDING HER TEETH (BRUXISM) HAS ADEQUATE DENTITION BUT NEED CLEANING S/S OF POSSIBLE DYSPHAGIA, TAKES 5 SECONDS TO SWALLOW THIN LIQUIDS AND NECTAR THICK LIQUIDS (HOLDS IN HER MOUTH), FAIR HYOLARYNGEAL EXCURSION, DOES NOT ALLOW ORAL INSPECTION, NO OVERT ASPIRATION BUT HAS SILENT ASPIRATION RISK DUE TO DEMENTIA DX POOR AND SLOW INTAKE AND MAY REFUSE PO RECOMMENDATIONS SINCE FAMILY WANTS COMFORT FEEDING (NO TUBE FEEDINGS) FOR QUALITY OF LIFE, CONSIDER DOWNGRADING HER TO LIQUIFIED PUREED LIKE NECTAR THICK SOUP CONSISTENCY TSP ONLY WITH POSTED ASPIRATION PRECAUTIONS ORAL SPILLAGE ON THE RIGHT WITH TSP (CANNOT OR DID NOT USE STRAW/CUP). DID NOT OPEN MOUTH TO TAKE PUREED TSP CONSISTENCY ALLOW SON/FAMILY TO GIVE [place]IZ[place] FOODS OF PREFERENCE OF NECTAR THICK LIQUID CONSISTENCY IF POSSIBLE. PER RD LIBERALIZE DIET AND SEND ENSURE ENLIVE TID EDUCATED/TRAINED VIGNESH CANTRELL IN POSTED PRECAUTIONS SKILLED DYSPHAGIA MANAGEMENT AND TX AND COG-COM EVAL/TX Addendum: 08/07/19 at 1143 by MONCHO HEALY COMPLETE MOD BARIUM SWALLOW STUDY IF RECEPTIVE TO PO TRIALS SPEAKS [place]IZ[place] USUALLY
[2019-08-07 12:00] VITALS: BP 127/80
--- NOTE | 2019-08-07 13:06 | Pulmonology Progress Note ---
Assessment/Plan Problems: (1) Failure to thrive (2) At high risk for aspiration (3) Diabetes (4) Protein-calorie malnutrition, severe (5) Limited mobility in bed (6) Flexion contractures Assessment/Plan aspiration precaution symptomatic treatment sliding scale diabetic diet check electrolytes titrate fio2 to sat of 92% Subjective ROS Limited/Unobtainable: No Constitutional: Reports: no symptoms HEENT: Repors: no symptoms Respiratory: Reports: no symptoms Allergies: Coded Allergies: LISINOPRIL (Verified Allergy, Unknown, 08/05/19) Objective Last 24 Hour Vital Signs Date Time Temp Pulse Resp B/P (MAP) Pulse Ox O2 Delivery O2 Flow Rate FiO2 08/07/19 09:00 Room Air 08/07/19 08:40 130/79 08/07/19 08:00 98.6 66 20 130/79 (96) 99 08/07/19 04:00 98.6 55 18 162/69 (100) 96 08/07/19 00:00 98.2 60 17 149/61 (90) 96 08/06/19 21:35 174/67 08/06/19 21:00 Room Air 08/06/19 20:00 98.3 61 16 174/67 (102) 96 08/06/19 16:00 98.3 69 18 103/71 (82) 97 Intake and Output 08/06/19 08/07/19 19:00 07:00 Intake Total 850 ml 600 ml Output Total 300 ml 600 ml Balance 550 ml 0 ml Intake Oral 500 ml IV Total 350 ml 600 ml Output Urine Total 300 ml 600 ml # Voids 1 # Bowel Movements 4 3 General Appearance: cachetic Respiratory/Chest: chest wall non-tender, lungs clear Breasts: no masses Cardiovascular: normal peripheral pulses, normal rate Abdomen: normal bowel sounds, soft, non tender Genitourinary: normal external genitalia Extremities: no cyanosis Neurologic/Psychiatric: shade matcher II-XII grossly normal, aphasia Microbiology Date/Time Source Procedure Growth Status 08/05/19 22:27 Blood Blood Culture - Preliminary NO GROWTH AFTER 24 HOURS Resulted 08/05/19 22:06 Blood Blood Culture - Preliminary NO GROWTH AFTER 24 HOURS Resulted 08/06/19 04:55 Stool Clostridium difficile Toxin Assay - Final Complete 08/05/19 22:06 Urine,Clean Catch Urine Culture - Preliminary Gram Negative Bacillus 1 Resulted 08/05/19 22:30 Rectum Received Laboratory Tests 08/07/19 04:45: White Blood Count 6.4, Red Blood Count 4.17L, Hemoglobin 12.7, Hematocrit 38.5, Mean Corpuscular Volume 92, Mean Corpuscular Hemoglobin 30.5, Mean Corpuscular Hemoglobin Concent 33.0, Red Cell Distribution Width 11.8, Platelet Count 161, Mean Platelet Volume 6.7, Neutrophils (%) (Auto) 66.4, Lymphocytes (%) (Auto) 22.7, Monocytes (%) (Auto) 9.0, Eosinophils (%) (Auto) 1.0, Basophils (%) (Auto ) 0.9, Sodium Level 140, Potassium Level 3.6, Chloride Level 107, Carbon Dioxide Level 27, Anion Gap 6, Blood Urea Nitrogen 10, Creatinine 0.5L, Estimat Glomerular Filtration Rate , Glucose Level 87, Hemoglobin A1c 5.4, Calcium Level 8.5, Total Bilirubin 0.5, Aspartate Amino Transf (AST/SGOT) 15, Alanine Aminotransferase (ALT/SGPT) 9L, Alkaline Phosphatase 103, Total Protein 6.6, Albumin 2.8L, Globulin 3.8, Albumin/Globulin Ratio 0.7L, Triglycerides Level 43 , Cholesterol Level 247H, LDL Cholesterol 171H, HDL Cholesterol 60, Cholesterol/ HDL Ratio 4.1, Thyroid Stimulating Hormone (TSH) 0.673 Current Medications Medications (Trade) Dose Ordered Sig/Patricia Route PRN Reason Start Time Stop Time Status Last Admin Dose Admin Acetaminophen (Tylenol) 650 mg Q4H PRN ORAL fever 08/06/19 08:30 09/05/19 08:29 Albuterol/ Ipratropium (Albuterol/ Ipratropium) 3 ml Q4H PRN HHN sob 08/06/19 11:15 08/11/19 11:14 Ceftriaxone Sodium 1 gm/ Dextrose 55 ml @ 110 mls/hr Q24H IVPB 08/06/19 21:00 08/13/19 20:59 08/06/19 21:35 Clonidine HCl (Catapres Tab) 0.1 mg Q6H PRN ORAL sbp above 160 08/06/19 11:15 09/05/19 11:14 08/06/19 21:35 Dextrose (Dextrose 50%) 25 ml Q30M PRN IV Hypoglycemia 08/06/19 08:30 09/05/19 08:29 Dextrose (Dextrose 50%) 50 ml Q30M PRN IV Hypoglycemia 08/06/19 08:30 09/05/19 08:29 Heparin Sodium (Porcine) (Heparin 5000 units/ml) 5,000 units EVERY 12 HOURS SUBQ 08/06/19 09:00 09/05/19 08:59 08/07/19 08:41 Insulin Aspart (NovoLOG) BEFORE MEALS AND HS SUBQ 08/06/19 11:30 09/05/19 11:29 08/06/19 17:10 Lorazepam (Ativan 2mg/ml 1ml) 0.5 mg Q4H PRN IV For Anxiety 08/06/19 08:30 08/13/19 08:29 Losartan Potassium (Cozaar) 25 mg DAILY ORAL 08/06/19 12:00 09/05/19 11:59 08/07/19 08:40 Morphine Sulfate (Morphine Sulfate) 1 mg Q4H PRN IVP For Pain 08/06/19 08:30 08/13/19 08:29 Ondansetron HCl (Zofran) 4 mg Q6H PRN IVP Nausea & Vomiting 08/06/19 08:30 09/05/19 08:29 Polyethylene Glycol (Miralax) 17 gm HSPRN PRN ORAL Constipation 08/06/19 08:30 09/05/19 08:29 Sodium Chloride 1,000 ml @ 50 mls/hr Q20H IV 08/06/19 11:15 09/05/19 11:14 08/07/19 06:50 Zolpidem Tartrate (Ambien) 5 mg HSPRN PRN ORAL Insomnia 08/06/19 08:30 08/13/19 08:29 Arnaldo Easton MD Aug 07, 2019 13:06
--- NOTE | 2019-08-07 13:30 | NUR ---
NURSE NOTES: (CM please read_ Daughter states she wants her mother to go back to [facility].
[2019-08-07 16:00] VITALS: BP 131/77
--- NOTE | 2019-08-07 16:35 | NUR ---
[employer] SUP[employer]Y 84 YO FEMALE BIBA FROM [facility] HOME TO ER CC FAILURE TO THRIVE SI: FAILURE TO THRIVE T. 99.5 HR 52 RR 16 B/P 142/73 ALK PHOS 121 BNP 501 UA+ BLOOD,LEUKOCYTE ESTERASE WBC IS: IV BOLUS NS X 1 LITER ADMITTED TO MED/SURG @ 7752 MED/SURG STATUS DCP RETURN TO [facility]
--- NOTE | 2019-08-07 18:39 | Cardiology Report ---
APPROVED REPORT EKG Measurement Heart [id number] 140P83 [id number] Sinus bradycardia Nonspecific T wave abnormality Abnormal ECG
--- NOTE | 2019-08-07 19:36 | NUR ---
HAND-OFF: Report given to VIGNESH Capone.
--- NOTE | 2019-08-07 19:40 | NUR ---
NURSE NOTES: received patient in bed, asleep, no acute distress at this time. IVF infusing on RFA no signs of infiltration. Family at bedside, educated regarding contact isolation and aspiration precaution per ST/MD order diet. Verbalized understanding. Will continue plan of care.
[2019-08-07 20:00] VITALS: BP 113/62
[2019-08-07] MEDS: cefTRIAXone 1 GM in D5W 55 ML IVPB SCH (20:37)
--- NOTE | 2019-08-07 21:20 | NUR ---
NURSE NOTES: Notified Dr. Saldivar re: pt not being on vanco or flagyl for Cdiff. Dr. Saldivar will consult ID.
[2019-08-08] VITALS: BP 150/74
[2019-08-08 04:00] VITALS: BP 152/85
[2019-08-08] MEDS: NovoLOG Insulin Flexpen SUBQ SCH ×4 (06:22→20:03)
[2019-08-08 06:57] LABS: ANION GAP 8 mmol/L (5-15); BLOOD UREA NITROGEN 9 mg/dL (7-18); CARBON DIOXIDE 29 MMOL/L (21-32); CHLORIDE 103 MMOL/L (98-107); CREATININE 0.5 MG/DL (0.55-1.30); POTASSIUM 3.5 MMOL/L (3.5-5.1); SODIUM 140 MMOL/L (136-145)
[2019-08-08 07:23] LABS: BASOPHILS % (AUTO) 0.5 % (0.0-2.0); EOSINOPHILS % (AUTO) 0.3 % (0.0-3.0); HEMATOCRIT 43.2 % (37.0-47.0); HEMOGLOBIN 14.6 G/DL (12.0-16.0); LYMPHOCYTES % (AUTO) 17.2 % (20.0-45.0); MEAN CORPUSCULAR VOLUME 93 FL (80-99); MONOCYTES % (AUTO) 9.6 % (1.0-10.0); NEUTROPHILS % (AUTO) 72.4 % (45.0-75.0); PLATELET COUNT 177 K/UL (150-450); RED BLOOD COUNT 4.64 M/UL (4.20-5.40); RED CELL DISTRIBUTION WIDTH 11.8 % (11.6-14.8); WHITE BLOOD COUNT 7.3 K/UL (4.8-10.8)
--- NOTE | 2019-08-08 07:33 | NUR ---
HAND-OFF: Report given to Lola GRESHAM
[2019-08-08 08:00] VITALS: BP 146/80
[2019-08-08] MEDS: Losartan 25mg tab ORAL SCH (08:09)
[2019-08-08] MEDS: Heparin 5000 units/ml inj SUBQ SCH ×2 (08:13→20:34)
--- NOTE | 2019-08-08 11:16 | GI Progress Note ---
Assessment/Plan Problems: (1) Weakness ICD Codes: R53.1 - Weakness SNOMED: 25895934 (2) Malnutrition ICD Codes: E46 - Unspecified protein-calorie malnutrition SNOMED: 04627697 (3) Failure to thrive SNOMED: 21846752 Qualifiers: Qualified Codes: R62.7 - Adult failure to thrive Status: unchanged Status Narrative Discussed with Dr. Fonseca.. Assessment/Plan Calorie count reviewed nutritional needs are not met Family refuses PEG Push p.o. Strict aspiration precautions One-to-one feeder Add Marinol Follow labs dc planning The patient was seen and examined at bedside and all new and available data was reviewed in the patients chart. I agree with the above findings, impression and plan. (Patient seen earlier today. Signature stamp does not reflect patient encounter time.). - Víctor Fonseca MD Subjective Subjective Limited Objective Last 24 Hour Vital Signs Date Time Temp Pulse Resp B/P (MAP) Pulse Ox O2 Delivery O2 Flow Rate FiO2 08/08/19 09:00 Room Air 08/08/19 08:09 152/85 08/08/19 08:00 98.2 73 20 146/80 (102) 100 08/08/19 04:00 98.2 70 19 152/85 (107) 100 08/08/19 00:00 97.7 69 19 150/74 (99) 100 08/07/19 21:00 Room Air 08/07/19 20:00 98.1 72 16 113/62 (79) 100 08/07/19 16:00 98.4 75 18 131/77 (95) 98 08/07/19 12:00 98.3 70 18 127/80 (96) 98 Intake and Output 08/07/19 08/08/19 19:00 07:00 Intake Total 470 ml 605 ml Output Total 600 ml 700 ml Balance -130 ml -95 ml Intake Oral 420 ml IV Total 50 ml 605 ml Output Urine Total 600 ml 700 ml # Bowel Movements 3 1 Laboratory Tests Test 08/08/19 05:40 White Blood Count 7.3 K/UL (4.8-10.8) Red Blood Count 4.64 M/UL (4.20-5.40) Hemoglobin 14.6 G/DL (12.0-16.0) Hematocrit 43.2 % (37.0-47.0) Mean Corpuscular Volume 93 FL (80-99) Mean Corpuscular Hemoglobin 31.4 PG (27.0-31.0) H Mean Corpuscular Hemoglobin Concent 33.7 G/DL (32.0-36.0) Red Cell Distribution Width 11.8 % (11.6-14.8) Platelet Count 177 K/UL (150-450) Mean Platelet Volume 7.2 FL (6.5-10.1) Neutrophils (%) (Auto) 72.4 % (45.0-75.0) Lymphocytes (%) (Auto) 17.2 % (20.0-45.0) L Monocytes (%) (Auto) 9.6 % (1.0-10.0) Eosinophils (%) (Auto) 0.3 % (0.0-3.0) Basophils (%) (Auto) 0.5 % (0.0-2.0) Sodium Level 140 MMOL/L (136-145) Potassium Level 3.5 MMOL/L (3.5-5.1) Chloride Level 103 MMOL/L (98-107) Carbon Dioxide Level 29 MMOL/L (21-32) Anion Gap 8 mmol/L (5-15) Blood Urea Nitrogen 9 mg/dL (7-18) Creatinine 0.5 MG/DL (0.55-1.30) L Estimat Glomerular Filtration Rate mL/min (>60) Glucose Level 86 MG/DL (74-106) Calcium Level 9.0 MG/DL (8.5-10.1) Height (Feet): 5 Height (Inches): 1.00 Weight (Pounds): 101 General Appearance: WD/WN, no apparent distress, alert, thin Cardiovascular: normal rate Respiratory/Chest: normal breath sounds, no respiratory distress Abdominal Exam: normal bowel sounds, non tender, soft Extremities: non-tender Objective Reported by the RN the patient tolerated approximately 25% of her meals Remi Rico NP Aug 08, 2019 11:16
--- NOTE | 2019-08-08 11:34 | NUR ---
RD ASSESSMENT & RECOMMENDATIONS SEE CARE ACTIVITY FOR COMPLETE ASSESSMENT DAILY ESTIMATED NEEDS: Needs based on Wound, 46kg 30-35 kcals/kg 5774-7031 total kcals 1.25-1.5 g protein/kg 58-69 g total protein 25-30 mL/kg 9248-4647 total fluid mLs NUTRITION DIAGNOSIS: Increased kcal and pro needs r/t wound healing as evidenced by pt w/ coccyx pressure ulcer, w/ generalized moderate to severe wasting. CURRENT DIET: Regular puree w/ HTL PO DIET RECOMMENDATIONS: Liberalized Regular diet / texture per INDIVIDUAL SMALL GROUP INSTRUCTOR ENTERAL NUTRITION RECOMMENDATIONS: Osmolite 1.2 @48ml/hr x24 hrs to provide 1152ml, 1382 kcal, 64g pro, 945ml free H2O - As medically indicated, obtain GI access, start Osmolite 1.2 @18ml/hr for 6 hrs. - Advance as tolerated 10ml/hr q4-6 hrs to goal rate. - Flush per MD, HOB over 30 degrees - Monitor BG and need for carb control TF / NISS ADDITIONAL RECOMMENDATIONS: 1) Obtain calibrated bed scale wts 2) F/up w/ kcal count- incomplete 3) Add Ensure Enlive TID w/ meals 4) INDIVIDUAL SMALL GROUP INSTRUCTOR for appropriate texture 5) Wound care: add Shiraz BID + Vit C 250mg daily F/up w/ WC eval 6) C-diff +, check lytes daily
--- NOTE | 2019-08-08 11:38 | Consultation ---
History of Present Illness General Date patient seen: Aug 08, 2019 Chief Complaint: General Complaint Referring physician: Dr Saldivar Reason for Consultation: hospitalist Present Illness HPI Ms Swartz is an 84 yo female with PMHx of DM and failure to thrive who was admitted to the hospital on 08/05/19. [facility] for decreased appetite and possible fevers.She is non verbal at baseline so the history is limited and obtained form the charts. She was afebrile and had no leukocytosis in the ED. She did have a positive UA and her urine Cx had grown E. coli. She developed Diarrhea as well and had 7 BMs yesterday. C. diff assay for toxin was positive. ID was consulted for C. diff infection PMHx/PSHx DM Failure to thrive SocHx Unable to obtain as patient not verbal FamxHx Unable to obtain as patient not verbal Allergies: Coded Allergies: LISINOPRIL (Verified Allergy, Unknown, 08/05/19) Medication History Scheduled Cyanocobalamin (Vitamin B-12), 500 MCG ORAL DAILY, (Reported) Docusate Sodium* (Colace*), 100 MG ORAL DAILY, (Reported) Dorzolamide Hcl/Timolol Maleat (Cosopt Eye Drops), 10 ML OP BID, (Reported) Insulin Regular, Human* (Novolin R*), 0 SUBQ .SLIDING SCALE, (Reported) Magnesium Hydroxide* (Milk Of Magnesia*), 30 ML ORAL DAILY, (Reported) Mirtazapine (Remeron), 15 MG ORAL BEDTIME, (Reported) Mirtazapine* (Remeron*), 7.5 MG ORAL BEDTIME, (Reported) Multivitamin With Minerals (Multivitamins With Minerals*), 1 TAB ORAL DAILY, ( Reported) Potassium Chloride (Potassium Chloride), 7.5 ML ORAL QHS, (Reported) Scheduled PRN Acetaminophen* (Acetaminophen 325MG Tablet*), 650 MG ORAL Q4H PRN for Mild Pain (Pain Scale 1-3), (Reported) Acetaminophen* (Acetaminophen Extra Strength*), 1,000 MG ORAL Q4H PRN for Moderate Pain (Pain Scale 4-6), (Reported) Na Phos,M-B/Na Phos,Di-Ba (Fleet Enema), 133 ML RC PRN PRN for Constipation, ( Reported) Miscellaneous Medications Bisacodyl (Dulcolax), 10 MG RC, (Reported) Patient History Healthcare decision maker Nica Peralta Resuscitation status Do Not Resuscitate Advanced Directive on File No Review of Systems ROS Narrative Unable to obtain as patient not verbal Physical Exam Last 24 Hour Vital Signs Date Time Temp Pulse Resp B/P (MAP) Pulse Ox O2 Delivery O2 Flow Rate FiO2 08/08/19 09:00 Room Air 08/08/19 08:09 152/85 08/08/19 08:00 98.2 73 20 146/80 (102) 100 08/08/19 04:00 98.2 70 19 152/85 (107) 100 08/08/19 00:00 97.7 69 19 150/74 (99) 100 08/07/19 21:00 Room Air 08/07/19 20:00 98.1 72 16 113/62 (79) 100 08/07/19 16:00 98.4 75 18 131/77 (95) 98 08/07/19 12:00 98.3 70 18 127/80 (96) 98 Intake and Output 08/07/19 08/08/19 19:00 07:00 Intake Total 470 ml 605 ml Output Total 600 ml 700 ml Balance -130 ml -95 ml Intake Oral 420 ml IV Total 50 ml 605 ml Output Urine Total 600 ml 700 ml # Bowel Movements 3 1 Laboratory Tests Test 08/08/19 05:40 White Blood Count 7.3 K/UL (4.8-10.8) Red Blood Count 4.64 M/UL (4.20-5.40) Hemoglobin 14.6 G/DL (12.0-16.0) Hematocrit 43.2 % (37.0-47.0) Mean Corpuscular Volume 93 FL (80-99) Mean Corpuscular Hemoglobin 31.4 PG (27.0-31.0) H Mean Corpuscular Hemoglobin Concent 33.7 G/DL (32.0-36.0) Red Cell Distribution Width 11.8 % (11.6-14.8) Platelet Count 177 K/UL (150-450) Mean Platelet Volume 7.2 FL (6.5-10.1) Neutrophils (%) (Auto) 72.4 % (45.0-75.0) Lymphocytes (%) (Auto) 17.2 % (20.0-45.0) L Monocytes (%) (Auto) 9.6 % (1.0-10.0) Eosinophils (%) (Auto) 0.3 % (0.0-3.0) Basophils (%) (Auto) 0.5 % (0.0-2.0) Sodium Level 140 MMOL/L (136-145) Potassium Level 3.5 MMOL/L (3.5-5.1) Chloride Level 103 MMOL/L (98-107) Carbon Dioxide Level 29 MMOL/L (21-32) Anion Gap 8 mmol/L (5-15) Blood Urea Nitrogen 9 mg/dL (7-18) Creatinine 0.5 MG/DL (0.55-1.30) L Estimat Glomerular Filtration Rate mL/min (>60) Glucose Level 86 MG/DL (74-106) Calcium Level 9.0 MG/DL (8.5-10.1) Height (Feet): 5 Height (Inches): 1.00 Weight (Pounds): 101 Medications Current Medications Medications (Trade) Dose Ordered Sig/Patricia Route PRN Reason Start Time Stop Time Status Last Admin Dose Admin Acetaminophen (Tylenol) 650 mg Q4H PRN ORAL fever 08/06/19 08:30 09/05/19 08:29 Albuterol/ Ipratropium (Albuterol/ Ipratropium) 3 ml Q4H PRN HHN sob 08/06/19 11:15 08/11/19 11:14 Ceftriaxone Sodium 1 gm/ Dextrose 55 ml @ 110 mls/hr Q24H IVPB 08/06/19 21:00 08/13/19 20:59 08/07/19 20:37 Clonidine HCl (Catapres Tab) 0.1 mg Q6H PRN ORAL sbp above 160 08/06/19 11:15 09/05/19 11:14 08/06/19 21:35 Dextrose (Dextrose 50%) 25 ml Q30M PRN IV Hypoglycemia 08/06/19 08:30 09/05/19 08:29 Dextrose (Dextrose 50%) 50 ml Q30M PRN IV Hypoglycemia 08/06/19 08:30 09/05/19 08:29 Dronabinol (Marinol) 2.5 mg TID ORAL 08/08/19 13:00 09/07/19 12:59 Heparin Sodium (Porcine) (Heparin 5000 units/ml) 5,000 units EVERY 12 HOURS SUBQ 08/06/19 09:00 09/05/19 08:59 08/08/19 08:13 Insulin Aspart (NovoLOG) BEFORE MEALS AND HS SUBQ 08/06/19 11:30 09/05/19 11:29 08/06/19 17:10 Lorazepam (Ativan 2mg/ml 1ml) 0.5 mg Q4H PRN IV For Anxiety 08/06/19 08:30 08/13/19 08:29 Losartan Potassium (Cozaar) 25 mg DAILY ORAL 08/06/19 12:00 09/05/19 11:59 08/08/19 08:09 Morphine Sulfate (Morphine Sulfate) 1 mg Q4H PRN IVP For Pain 08/06/19 08:30 08/13/19 08:29 Ondansetron HCl (Zofran) 4 mg Q6H PRN IVP Nausea & Vomiting 08/06/19 08:30 09/05/19 08:29 Polyethylene Glycol (Miralax) 17 gm HSPRN PRN ORAL Constipation 08/06/19 08:30 09/05/19 08:29 Sodium Chloride 1,000 ml @ 50 mls/hr Q20H IV 08/06/19 11:15 09/05/19 11:14 08/08/19 03:31 Zolpidem Tartrate (Ambien) 5 mg HSPRN PRN ORAL Insomnia 08/06/19 08:30 08/13/19 08:29 Objective Narrative GEN: NAD, Satting well HEENT: NCAT, MMM, No scleral icterus CHEST: CTAB, No W/C HEART: RRR, S1, S2, Abd: Soft, NT, ND, +BS, No HSM Ext No C/C/E, Pulse 2+ B/L (DP and Rad) Neuro Awake, not verbal Skin, Warm, no rashes Assessment/Plan Assessment/Plan: 84 yo female with PMHx of DM and failure to thrive who was admitted to the hospital on 08/05/19. C. diff Diarrhea Toxin assay Pos 08/07/19 UTI UA (+) Urine Cx 08/05/19 - E,. coli (Sen to cefazolin) DM Failure to thrive Plan - Start PO Vancomycin - Continue Ceftriaxone #3/5 - Monitor BMs - Monitor CBC and Temps Thank you for this consult. We will continue to follow the patient with you. Freeman Campbell MD Aug 08, 2019 11:38
--- NOTE | 2019-08-08 11:42 | Pulmonology Progress Note ---
Assessment/Plan Problems: (1) Failure to thrive (2) At high risk for aspiration (3) Diabetes (4) Protein-calorie malnutrition, severe (5) Limited mobility in bed (6) Flexion contractures Assessment/Plan aspiration precaution symptomatic treatment sliding scale diabetic diet check electrolytes titrate fio2 to sat of 92%\ Calorie count reviewed nutritional needs are not met Family refuses PEG One-to-one feeder consider comfort and palliative care Subjective ROS Limited/Unobtainable: No Constitutional: Reports: no symptoms HEENT: Repors: no symptoms Allergies: Coded Allergies: LISINOPRIL (Verified Allergy, Unknown, 08/05/19) Objective Last 24 Hour Vital Signs Date Time Temp Pulse Resp B/P (MAP) Pulse Ox O2 Delivery O2 Flow Rate FiO2 08/08/19 09:00 Room Air 08/08/19 08:09 152/85 08/08/19 08:00 98.2 73 20 146/80 (102) 100 08/08/19 04:00 98.2 70 19 152/85 (107) 100 08/08/19 00:00 97.7 69 19 150/74 (99) 100 08/07/19 21:00 Room Air 08/07/19 20:00 98.1 72 16 113/62 (79) 100 08/07/19 16:00 98.4 75 18 131/77 (95) 98 08/07/19 12:00 98.3 70 18 127/80 (96) 98 Intake and Output 08/07/19 08/08/19 19:00 07:00 Intake Total 470 ml 605 ml Output Total 600 ml 700 ml Balance -130 ml -95 ml Intake Oral 420 ml IV Total 50 ml 605 ml Output Urine Total 600 ml 700 ml # Bowel Movements 3 1 General Appearance: cachetic HEENT: normocephalic, atraumatic Respiratory/Chest: chest wall non-tender, normal breath sounds Breasts: no masses Cardiovascular: normal peripheral pulses, normal rate Abdomen: normal bowel sounds, soft, non tender, no scars Extremities: no clubbing Skin: no rash Microbiology Date/Time Source Procedure Growth Status 08/05/19 22:27 Blood Blood Culture - Preliminary NO GROWTH AFTER 48 HOURS Resulted 08/05/19 22:06 Blood Blood Culture - Preliminary NO GROWTH AFTER 48 HOURS Resulted 08/05/19 22:30 Nasal Nares MRSA Culture - Final NO METHICILLIN RESISTANT STAPH AUREUS... Complete 08/06/19 04:55 Stool Clostridium difficile Toxin Assay - Final Complete 08/05/19 22:06 Urine,Clean Catch Urine Culture - Final Escherichia Coli Complete 08/05/19 22:30 Rectum - Final NO CARBAPENEM-RESISTANT ENTEROBACTERI... Complete 08/05/19 22:30 Rectum VRE Culture - Final NO VANCOMYCIN RESISTANT ENTEROCOCCUS ... Complete Laboratory Tests 08/08/19 05:40: White Blood Count 7.3, Red Blood Count 4.64, Hemoglobin 14.6, Hematocrit 43.2, Mean Corpuscular Volume 93, Mean Corpuscular Hemoglobin 31.4H, Mean Corpuscular Hemoglobin Concent 33.7, Red Cell Distribution Width 11.8, Platelet Count 177, Mean Platelet Volume 7.2, Neutrophils (%) (Auto) 72.4, Lymphocytes (%) (Auto) 17.2L, Monocytes (%) (Auto) 9.6, Eosinophils (%) (Auto) 0.3, Basophils (%) (Auto ) 0.5, Sodium Level 140, Potassium Level 3.5, Chloride Level 103, Carbon Dioxide Level 29, Anion Gap 8, Blood Urea Nitrogen 9, Creatinine 0.5L, Estimat Glomerular Filtration Rate , Glucose Level 86, Calcium Level 9.0 Current Medications Medications (Trade) Dose Ordered Sig/Patricia Route PRN Reason Start Time Stop Time Status Last Admin Dose Admin Acetaminophen (Tylenol) 650 mg Q4H PRN ORAL fever 08/06/19 08:30 09/05/19 08:29 Albuterol/ Ipratropium (Albuterol/ Ipratropium) 3 ml Q4H PRN HHN sob 08/06/19 11:15 08/11/19 11:14 Ceftriaxone Sodium 1 gm/ Dextrose 55 ml @ 110 mls/hr Q24H IVPB 08/06/19 21:00 08/13/19 20:59 08/07/19 20:37 Clonidine HCl (Catapres Tab) 0.1 mg Q6H PRN ORAL sbp above 160 08/06/19 11:15 09/05/19 11:14 08/06/19 21:35 Dextrose (Dextrose 50%) 25 ml Q30M PRN IV Hypoglycemia 08/06/19 08:30 09/05/19 08:29 Dextrose (Dextrose 50%) 50 ml Q30M PRN IV Hypoglycemia 08/06/19 08:30 09/05/19 08:29 Dronabinol (Marinol) 2.5 mg TID ORAL 08/08/19 13:00 09/07/19 12:59 Heparin Sodium (Porcine) (Heparin 5000 units/ml) 5,000 units EVERY 12 HOURS SUBQ 08/06/19 09:00 09/05/19 08:59 08/08/19 08:13 Insulin Aspart (NovoLOG) BEFORE MEALS AND HS SUBQ 08/06/19 11:30 09/05/19 11:29 08/06/19 17:10 Lorazepam (Ativan 2mg/ml 1ml) 0.5 mg Q4H PRN IV For Anxiety 08/06/19 08:30 08/13/19 08:29 Losartan Potassium (Cozaar) 25 mg DAILY ORAL 08/06/19 12:00 09/05/19 11:59 08/08/19 08:09 Morphine Sulfate (Morphine Sulfate) 1 mg Q4H PRN IVP For Pain 08/06/19 08:30 08/13/19 08:29 Ondansetron HCl (Zofran) 4 mg Q6H PRN IVP Nausea & Vomiting 08/06/19 08:30 09/05/19 08:29 Polyethylene Glycol (Miralax) 17 gm HSPRN PRN ORAL Constipation 08/06/19 08:30 09/05/19 08:29 Sodium Chloride 1,000 ml @ 50 mls/hr Q20H IV 08/06/19 11:15 09/05/19 11:14 08/08/19 03:31 Vancomycin HCl (Firvanq) 125 mg FOUR TIMES A DAY ORAL 08/08/19 13:00 08/15/19 12:59 UNV Zolpidem Tartrate (Ambien) 5 mg HSPRN PRN ORAL Insomnia 08/06/19 08:30 08/13/19 08:29 Arnaldo Eastno MD Aug 08, 2019 11:42
[2019-08-08 12:00] VITALS: BP 138/76
[2019-08-08] MEDS: Dronabinol 2.5mg Cap ORAL SCH ×2 (12:46→17:29)
--- NOTE | 2019-08-08 12:46 | NUR ---
P.T NOTE: LATE 08/07/19 P.T EVALUATION COMPLETED. PATIENT IS NON VERBAL, NON ENGAGING WITH MOBILITY TASKS> PRESENTED LE HIP KNEE FLEXION CONTRACTURES. PATIENT IS DEPENDENT IN ALL AREAS OF BED MOBILITIES AND TRANSFER ACTIVITIES.BASED ON P.T EVALUATION, PATIENT IS CURRENTLY AT BASELINE FUNCTION AND NOT A CANDIDATE FOR SKILLED P.T SERVICES. RECOMMEND D/C TO SNF/[facility].
--- NOTE | 2019-08-08 13:20 | General Progress Note ---
Assessment/Plan Problem List: (1) Diabetes ICD Codes: E11.9 - Type 2 diabetes mellitus without complications SNOMED: 23781802 (2) Malnutrition ICD Codes: E46 - Unspecified protein-calorie malnutrition SNOMED: 03237409 (3) Failure to thrive SNOMED: 68589078 Qualifiers: Qualified Codes: R62.7 - Adult failure to thrive (4) Weakness ICD Codes: R53.1 - Weakness SNOMED: 44852020 (5) UTI (urinary tract infection) ICD Codes: N39.0 - Urinary tract infection, site not specified SNOMED: 57524446 Qualifiers: Qualified Codes: N39.0 - Urinary tract infection, site not specified Status: stable, progressing Assessment/Plan: pt diet abx cbc bmp am aru eval Subjective Constitutional: Reports: weakness Allergies: Coded Allergies: LISINOPRIL (Verified Allergy, Unknown, 08/05/19) All Systems: reviewed and negative except above Subjective calm in bed Objective Last 24 Hour Vital Signs Date Time Temp Pulse Resp B/P (MAP) Pulse Ox O2 Delivery O2 Flow Rate FiO2 08/08/19 12:00 98.4 81 19 138/76 (96) 99 08/08/19 09:00 Room Air 08/08/19 08:09 152/85 08/08/19 08:00 98.2 73 20 146/80 (102) 100 08/08/19 04:00 98.2 70 19 152/85 (107) 100 08/08/19 00:00 97.7 69 19 150/74 (99) 100 08/07/19 21:00 Room Air 08/07/19 20:00 98.1 72 16 113/62 (79) 100 08/07/19 16:00 98.4 75 18 131/77 (95) 98 Intake and Output 08/07/19 08/08/19 19:00 07:00 Intake Total 470 ml 605 ml Output Total 600 ml 700 ml Balance -130 ml -95 ml Intake Oral 420 ml IV Total 50 ml 605 ml Output Urine Total 600 ml 700 ml # Bowel Movements 3 1 Laboratory Tests 08/08/19 05:40: White Blood Count 7.3, Red Blood Count 4.64, Hemoglobin 14.6, Hematocrit 43.2, Mean Corpuscular Volume 93, Mean Corpuscular Hemoglobin 31.4H, Mean Corpuscular Hemoglobin Concent 33.7, Red Cell Distribution Width 11.8, Platelet Count 177, Mean Platelet Volume 7.2, Neutrophils (%) (Auto) 72.4, Lymphocytes (%) (Auto) 17.2L, Monocytes (%) (Auto) 9.6, Eosinophils (%) (Auto) 0.3, Basophils (%) (Auto ) 0.5, Sodium Level 140, Potassium Level 3.5, Chloride Level 103, Carbon Dioxide Level 29, Anion Gap 8, Blood Urea Nitrogen 9, Creatinine 0.5L, Estimat Glomerular Filtration Rate , Glucose Level 86, Calcium Level 9.0 Height (Feet): 5 Height (Inches): 1.00 Weight (Pounds): 101 General Appearance: lethargic EENT: normal ENT inspection Neck: normal alignment Cardiovascular: normal peripheral pulses, normal rate, regular rhythm Respiratory/Chest: chest wall non-tender, lungs clear, normal breath sounds Abdomen: normal bowel sounds, non tender, soft Extremities: normal inspection Edema: no edema noted Arm (L), no edema noted Arm (R), no edema noted Leg (L), no edema noted Leg (R), no edema noted Pedal (L), no edema noted Pedal (R), no edema noted Generalized Neurologic: motor weakness Skin: normal pigmentation, warm/dry Reynold Saldivar DO Aug 08, 2019 13:20
--- NOTE | 2019-08-08 13:33 | NUR ---
NURSE NOTES:WOUND CARE NOTES:Pt presented on admission with small area of dry pink epithelial with surrounding hyperpigmentation to sacrococcygeal area.Are of hyperpigmentation noted to L hip. Both heels are soft but blanchable . No other areas of skin concerns noted per body assessment.L lower ext contracted. Cavilon Skin Barrier applied to bony prominences. Moisture Barrier paste applied to buttocks. Sacral area covered with Optifoam drsg as prevention against friction. Both heels covered with Optifoam drsg for protection. Recommendations: Apply Moisture Barrier paste to bilat groin, ischial areas and buttocks with each incontinence care. Cover sacrum with Optifoam drsg. Change every 3 days and prn. Apply Cavilon Skin Barrier to both heels. Cover each heel with Optifoam drsg. Change every 7 days and prn. Reposition at least every 2hours or as tolerated. Off-load heels with pillow.
--- NOTE | 2019-08-08 14:50 | NUR ---
DISCHARGE SWALLOW/SPEECH THERAPY NOTE: The patient is not receptive to po intake with WOMEN'S STUDIES PROFESSOR now. Per veronica mayer, pt is only taking 25% of liquified pureed like nectar thick soup consistency w/o overt aspiration. The patient will close her mouth when she has had enough. It is possible that the patient is getting [place] food from her son after work; however, the LABORER [employer] has not seen him here up until 7:30pm. Per Dr. Fonseca, the family is not receptive to nonoral feedings. The patient started to get Marinol, appetite stimulant, today. The patient will be d/c to SNF soon. Goals met for staff (zuhair chambers and moreno martin) aware/educated in posted aspiration precautions. Will hold off on modified barium swallow study for now since pt refuses po many times. Plan: d/c from skilled ST services for now and continue with diet/liquids per recommendations. f/up with concrete pump operator at SNF and outpt mod barium swallow study only if pt is consistently receptive to po intake.
[2019-08-08] MEDS: Vancomycin oral 125mg/2.5ml ORAL SCH ×3 (15:26→20:31)
[2019-08-08 16:00] VITALS: BP 123/64
--- NOTE | 2019-08-08 19:08 | NUR ---
HAND-OFF: Report given to Demetrius MEDELLIN.
[2019-08-08 20:00] VITALS: BP 104/80
--- NOTE | 2019-08-08 20:00 | NUR ---
NURSE NOTES: patient received in bed, awake, slightly restless, repositioned for comfort. Conway cath draining via gravity. IV leaking, new IV access obtained. Will continue plan of care.
[2019-08-08] MEDS: cefTRIAXone 1 GM in D5W 55 ML IVPB SCH (20:31)
[2019-08-09 00:09] VITALS: BP 103/55
[2019-08-09 04:00] VITALS: BP 109/76
[2019-08-09] MEDS: NovoLOG Insulin Flexpen SUBQ SCH ×4 (06:13→21:00)
[2019-08-09 07:07] LABS: BASOPHILS % (AUTO) 0.5 % (0.0-2.0); EOSINOPHILS % (AUTO) 1.1 % (0.0-3.0); HEMATOCRIT 44.2 % (37.0-47.0); HEMOGLOBIN 14.7 G/DL (12.0-16.0); LYMPHOCYTES % (AUTO) 26.5 % (20.0-45.0); MEAN CORPUSCULAR VOLUME 92 FL (80-99); MONOCYTES % (AUTO) 11.2 % (1.0-10.0); NEUTROPHILS % (AUTO) 60.8 % (45.0-75.0); PLATELET COUNT 188 K/UL (150-450); RED BLOOD COUNT 4.81 M/UL (4.20-5.40); RED CELL DISTRIBUTION WIDTH 12.5 % (11.6-14.8); WHITE BLOOD COUNT 5.9 K/UL (4.8-10.8)
[2019-08-09 07:19] LABS: ANION GAP 7 mmol/L (5-15); BLOOD UREA NITROGEN 9 mg/dL (7-18); CALCIUM 9.1 MG/DL (8.5-10.1); CARBON DIOXIDE 29 MMOL/L (21-32); CHLORIDE 104 MMOL/L (98-107); CREATININE 0.5 MG/DL (0.55-1.30); PHOSPHORUS 2.7 MG/DL (2.5-4.9); POTASSIUM 3.6 MMOL/L (3.5-5.1); SODIUM 140 MMOL/L (136-145)
--- NOTE | 2019-08-09 07:30 | NUR ---
NURSE NOTES: Received pt from JUAN MEDELLIN. Pt is nonverbal. pt is in RA, no SOB or acute respiratory distress noted. pt has fogey cath in place is running well.pt has intact IV access RH 24g is running well. all needs attended, bed is locked and is in the lowest position, call light within easy reach. will continue to monitor.
--- NOTE | 2019-08-09 07:44 | NUR ---
HAND-OFF: Report given to Meredith MEDELLIN.
[2019-08-09 08:00] VITALS: BP 152/72
[2019-08-09] MEDS: Dronabinol 2.5mg Cap ORAL SCH ×3 (08:49→16:59)
[2019-08-09] MEDS: Losartan 25mg tab ORAL SCH (08:49)
[2019-08-09] MEDS: Heparin 5000 units/ml inj SUBQ SCH ×2 (08:53→21:26)
--- NOTE | 2019-08-09 09:00 | NUR ---
NURSE NOTES: VANCOMYCIN isn't in the unit, pharmacy notified, they will send it.
--- NOTE | 2019-08-09 10:33 | Infectious Diseases Prog Note ---
Assessment/Plan Assessment/Plan 84 yo female with PMHx of DM and failure to thrive who was admitted to the hospital on 08/05/19. C. diff Diarrhea Toxin assay Pos 08/07/19 UTI UA (+) Urine Cx 08/05/19 - E,. coli (Sen to cefazolin) DM Failure to thrive Plan - Continue PO Vancomycin #2/10 - Continue Ceftriaxone #4/5 - Monitor BMs - Monitor CBC and Temps Thank you for this consult. We will continue to follow the patient with you. Subjective Allergies: Coded Allergies: LISINOPRIL (Verified Allergy, Unknown, 08/05/19) Subjective Afebrile No leukocytosis BM x 4 yesterday Objective Vital Signs Last 24 Hour Vital Signs Date Time Temp Pulse Resp B/P (MAP) Pulse Ox O2 Delivery O2 Flow Rate FiO2 08/09/19 08:49 152/72 08/09/19 08:00 97.0 62 20 152/72 (98) 97 08/09/19 04:00 98.2 60 18 109/76 (87) 96 08/09/19 00:09 97.5 61 22 103/55 (71) 96 08/08/19 21:00 Room Air 08/08/19 20:00 97.5 89 22 104/80 (88) 97 08/08/19 16:00 98.0 86 20 123/64 (83) 97 08/08/19 12:00 98.4 81 19 138/76 (96) 99 Height (Feet): 5 Height (Inches): 1.00 Weight (Pounds): 96 Objective GEN: NAD HEENT: NCAT, MMM, No scleral icterus CHEST: CTAB, No W/C HEART: RRR, S1, S2, Abd: Soft, NT, ND, +BS, No HSM Laboratory Tests Test 08/09/19 05:50 White Blood Count 5.9 K/UL (4.8-10.8) Red Blood Count 4.81 M/UL (4.20-5.40) Hemoglobin 14.7 G/DL (12.0-16.0) Hematocrit 44.2 % (37.0-47.0) Mean Corpuscular Volume 92 FL (80-99) Mean Corpuscular Hemoglobin 30.5 PG (27.0-31.0) Mean Corpuscular Hemoglobin Concent 33.2 G/DL (32.0-36.0) Red Cell Distribution Width 12.5 % (11.6-14.8) Platelet Count 188 K/UL (150-450) Mean Platelet Volume 7.4 FL (6.5-10.1) Neutrophils (%) (Auto) 60.8 % (45.0-75.0) Lymphocytes (%) (Auto) 26.5 % (20.0-45.0) Monocytes (%) (Auto) 11.2 % (1.0-10.0) H Eosinophils (%) (Auto) 1.1 % (0.0-3.0) Basophils (%) (Auto) 0.5 % (0.0-2.0) Sodium Level 140 MMOL/L (136-145) Potassium Level 3.6 MMOL/L (3.5-5.1) Chloride Level 104 MMOL/L (98-107) Carbon Dioxide Level 29 MMOL/L (21-32) Anion Gap 7 mmol/L (5-15) Blood Urea Nitrogen 9 mg/dL (7-18) Creatinine 0.5 MG/DL (0.55-1.30) L Estimat Glomerular Filtration Rate mL/min (>60) Glucose Level 78 MG/DL (74-106) Calcium Level 9.1 MG/DL (8.5-10.1) Phosphorus Level 2.7 MG/DL (2.5-4.9) Magnesium Level 1.6 MG/DL (1.8-2.4) L Current Medications Medications (Trade) Dose Ordered Sig/Patricia Route PRN Reason Start Time Stop Time Status Last Admin Dose Admin Acetaminophen (Tylenol) 650 mg Q4H PRN ORAL fever 08/06/19 08:30 09/05/19 08:29 Albuterol/ Ipratropium (Albuterol/ Ipratropium) 3 ml Q4H PRN HHN sob 08/06/19 11:15 08/11/19 11:14 Ceftriaxone Sodium 1 gm/ Dextrose 55 ml @ 110 mls/hr Q24H IVPB 08/06/19 21:00 08/13/19 20:59 08/08/19 20:31 Clonidine HCl (Catapres Tab) 0.1 mg Q6H PRN ORAL sbp above 160 08/06/19 11:15 09/05/19 11:14 08/06/19 21:35 Dextrose (Dextrose 50%) 25 ml Q30M PRN IV Hypoglycemia 08/06/19 08:30 09/05/19 08:29 Dextrose (Dextrose 50%) 50 ml Q30M PRN IV Hypoglycemia 08/06/19 08:30 09/05/19 08:29 Dronabinol (Marinol) 2.5 mg TID ORAL 08/08/19 13:00 09/07/19 12:59 08/09/19 08:49 Heparin Sodium (Porcine) (Heparin 5000 units/ml) 5,000 units EVERY 12 HOURS SUBQ 08/06/19 09:00 09/05/19 08:59 08/09/19 08:53 Insulin Aspart (NovoLOG) BEFORE MEALS AND HS SUBQ 08/06/19 11:30 09/05/19 11:29 08/06/19 17:10 Lorazepam (Ativan 2mg/ml 1ml) 0.5 mg Q4H PRN IV For Anxiety 08/06/19 08:30 08/13/19 08:29 Losartan Potassium (Cozaar) 25 mg DAILY ORAL 08/06/19 12:00 09/05/19 11:59 08/09/19 08:49 Morphine Sulfate (Morphine Sulfate) 1 mg Q4H PRN IVP For Pain 08/06/19 08:30 08/13/19 08:29 Ondansetron HCl (Zofran) 4 mg Q6H PRN IVP Nausea & Vomiting 08/06/19 08:30 09/05/19 08:29 Polyethylene Glycol (Miralax) 17 gm HSPRN PRN ORAL Constipation 08/06/19 08:30 09/05/19 08:29 Sodium Chloride 1,000 ml @ 50 mls/hr Q20H IV 08/06/19 11:15 09/05/19 11:14 08/08/19 23:31 Vancomycin HCl (Firvanq) 125 mg FOUR TIMES A DAY ORAL 08/08/19 13:00 08/15/19 12:59 08/08/19 20:31 Zolpidem Tartrate (Ambien) 5 mg HSPRN PRN ORAL Insomnia 08/06/19 08:30 08/13/19 08:29 Freeman Campbell MD Aug 09, 2019 10:32
[2019-08-09] MEDS: Vancomycin oral 125mg/2.5ml ORAL SCH ×4 (10:53→21:25)
[2019-08-09 12:00] VITALS: BP 121/65
--- NOTE | 2019-08-09 12:19 | GI Progress Note ---
Assessment/Plan Problems: (1) Weakness ICD Codes: R53.1 - Weakness SNOMED: 44964884 (2) Malnutrition ICD Codes: E46 - Unspecified protein-calorie malnutrition SNOMED: 97601774 (3) Failure to thrive SNOMED: 54927123 Qualifiers: Qualified Codes: R62.7 - Adult failure to thrive Status: stable, unchanged Status Narrative Discussed with Dr. Fonseca. Assessment/Plan Calorie count reviewed nutritional needs are not met Family refuses PEG Push p.o. Strict aspiration precautions One-to-one feeder Add Marinol Follow labs dc planning The patient was seen and examined at bedside and all new and available data was reviewed in the patients chart. I agree with the above findings, impression and plan. (Patient seen earlier today. Signature stamp does not reflect patient encounter time.). - Víctor Fonseca MD Subjective Subjective Limited Objective Last 24 Hour Vital Signs Date Time Temp Pulse Resp B/P (MAP) Pulse Ox O2 Delivery O2 Flow Rate FiO2 08/09/19 12:00 97.4 65 18 121/65 (83) 96 08/09/19 09:00 Room Air 08/09/19 08:49 152/72 08/09/19 08:00 97.0 62 20 152/72 (98) 97 08/09/19 04:00 98.2 60 18 109/76 (87) 96 08/09/19 00:09 97.5 61 22 103/55 (71) 96 08/08/19 21:00 Room Air 08/08/19 20:00 97.5 89 22 104/80 (88) 97 08/08/19 16:00 98.0 86 20 123/64 (83) 97 Intake and Output 08/08/19 08/09/19 19:00 07:00 Intake Total 410 ml 555 ml Output Total 450 ml 800 ml Balance -40 ml -245 ml Intake Oral 360 ml IV Total 50 ml 555 ml Output Urine Total 450 ml 800 ml # Bowel Movements 1 Laboratory Tests Test 08/09/19 05:50 White Blood Count 5.9 K/UL (4.8-10.8) Red Blood Count 4.81 M/UL (4.20-5.40) Hemoglobin 14.7 G/DL (12.0-16.0) Hematocrit 44.2 % (37.0-47.0) Mean Corpuscular Volume 92 FL (80-99) Mean Corpuscular Hemoglobin 30.5 PG (27.0-31.0) Mean Corpuscular Hemoglobin Concent 33.2 G/DL (32.0-36.0) Red Cell Distribution Width 12.5 % (11.6-14.8) Platelet Count 188 K/UL (150-450) Mean Platelet Volume 7.4 FL (6.5-10.1) Neutrophils (%) (Auto) 60.8 % (45.0-75.0) Lymphocytes (%) (Auto) 26.5 % (20.0-45.0) Monocytes (%) (Auto) 11.2 % (1.0-10.0) H Eosinophils (%) (Auto) 1.1 % (0.0-3.0) Basophils (%) (Auto) 0.5 % (0.0-2.0) Sodium Level 140 MMOL/L (136-145) Potassium Level 3.6 MMOL/L (3.5-5.1) Chloride Level 104 MMOL/L (98-107) Carbon Dioxide Level 29 MMOL/L (21-32) Anion Gap 7 mmol/L (5-15) Blood Urea Nitrogen 9 mg/dL (7-18) Creatinine 0.5 MG/DL (0.55-1.30) L Estimat Glomerular Filtration Rate mL/min (>60) Glucose Level 78 MG/DL (74-106) Calcium Level 9.1 MG/DL (8.5-10.1) Phosphorus Level 2.7 MG/DL (2.5-4.9) Magnesium Level 1.6 MG/DL (1.8-2.4) L Height (Feet): 5 Height (Inches): 1.00 Weight (Pounds): 96 General Appearance: WD/WN, no apparent distress, alert Cardiovascular: normal rate Respiratory/Chest: normal breath sounds, no respiratory distress Abdominal Exam: normal bowel sounds, non tender, soft Extremities: normal range of motion, non-tender Objective Reported by the RN the patient tolerated approximately 25% of her meals Remi Rico NP Aug 09, 2019 12:18
--- NOTE | 2019-08-09 12:50 | Pulmonology Progress Note ---
Assessment/Plan Problems: (1) Failure to thrive (2) At high risk for aspiration (3) Diabetes (4) Protein-calorie malnutrition, severe (5) Limited mobility in bed (6) Flexion contractures Assessment/Plan aspiration precaution symptomatic treatment sliding scale diabetic diet check electrolytes titrate fio2 to sat of 92%\ Calorie count reviewed nutritional needs are not met Family refuses PEG One-to-one feeder dc planning Subjective ROS Limited/Unobtainable: No Constitutional: Reports: no symptoms HEENT: Repors: no symptoms Respiratory: Reports: no symptoms Allergies: Coded Allergies: LISINOPRIL (Verified Allergy, Unknown, 08/05/19) Objective Last 24 Hour Vital Signs Date Time Temp Pulse Resp B/P (MAP) Pulse Ox O2 Delivery O2 Flow Rate FiO2 08/09/19 12:00 97.4 65 18 121/65 (83) 96 08/09/19 09:00 Room Air 08/09/19 08:49 152/72 08/09/19 08:00 97.0 62 20 152/72 (98) 97 08/09/19 04:00 98.2 60 18 109/76 (87) 96 08/09/19 00:09 97.5 61 22 103/55 (71) 96 08/08/19 21:00 Room Air 08/08/19 20:00 97.5 89 22 104/80 (88) 97 08/08/19 16:00 98.0 86 20 123/64 (83) 97 Intake and Output 08/08/19 08/09/19 19:00 07:00 Intake Total 410 ml 555 ml Output Total 450 ml 800 ml Balance -40 ml -245 ml Intake Oral 360 ml IV Total 50 ml 555 ml Output Urine Total 450 ml 800 ml # Bowel Movements 1 General Appearance: WD/WN HEENT: normocephalic, atraumatic, PERRL Respiratory/Chest: chest wall non-tender Breasts: no masses Cardiovascular: normal rate, no JVD Abdomen: soft, non tender, no scars Extremities: no cyanosis Skin: no rash Laboratory Tests 08/09/19 05:50: White Blood Count 5.9, Red Blood Count 4.81, Hemoglobin 14.7, Hematocrit 44.2, Mean Corpuscular Volume 92, Mean Corpuscular Hemoglobin 30.5, Mean Corpuscular Hemoglobin Concent 33.2, Red Cell Distribution Width 12.5, Platelet Count 188, Mean Platelet Volume 7.4, Neutrophils (%) (Auto) 60.8, Lymphocytes (%) (Auto) 26.5, Monocytes (%) (Auto) 11.2H, Eosinophils (%) (Auto) 1.1, Basophils (%) ( Auto) 0.5, Sodium Level 140, Potassium Level 3.6, Chloride Level 104, Carbon Dioxide Level 29, Anion Gap 7, Blood Urea Nitrogen 9, Creatinine 0.5L, Estimat Glomerular Filtration Rate , Glucose Level 78, Calcium Level 9.1, Phosphorus Level 2.7, Magnesium Level 1.6L Current Medications Medications (Trade) Dose Ordered Sig/Patricia Route PRN Reason Start Time Stop Time Status Last Admin Dose Admin Acetaminophen (Tylenol) 650 mg Q4H PRN ORAL fever 08/06/19 08:30 09/05/19 08:29 Albuterol/ Ipratropium (Albuterol/ Ipratropium) 3 ml Q4H PRN HHN sob 08/06/19 11:15 08/11/19 11:14 Ceftriaxone Sodium 1 gm/ Dextrose 55 ml @ 110 mls/hr Q24H IVPB 08/06/19 21:00 08/13/19 20:59 08/08/19 20:31 Clonidine HCl (Catapres Tab) 0.1 mg Q6H PRN ORAL sbp above 160 08/06/19 11:15 09/05/19 11:14 08/06/19 21:35 Dextrose (Dextrose 50%) 25 ml Q30M PRN IV Hypoglycemia 08/06/19 08:30 09/05/19 08:29 Dextrose (Dextrose 50%) 50 ml Q30M PRN IV Hypoglycemia 08/06/19 08:30 09/05/19 08:29 Dronabinol (Marinol) 2.5 mg TID ORAL 08/08/19 13:00 09/07/19 12:59 08/09/19 12:43 Heparin Sodium (Porcine) (Heparin 5000 units/ml) 5,000 units EVERY 12 HOURS SUBQ 08/06/19 09:00 09/05/19 08:59 08/09/19 08:53 Insulin Aspart (NovoLOG) BEFORE MEALS AND HS SUBQ 08/06/19 11:30 09/05/19 11:29 08/09/19 12:44 Lorazepam (Ativan 2mg/ml 1ml) 0.5 mg Q4H PRN IV For Anxiety 08/06/19 08:30 08/13/19 08:29 Losartan Potassium (Cozaar) 25 mg DAILY ORAL 08/06/19 12:00 09/05/19 11:59 08/09/19 08:49 Morphine Sulfate (Morphine Sulfate) 1 mg Q4H PRN IVP For Pain 08/06/19 08:30 08/13/19 08:29 Ondansetron HCl (Zofran) 4 mg Q6H PRN IVP Nausea & Vomiting 08/06/19 08:30 09/05/19 08:29 Polyethylene Glycol (Miralax) 17 gm HSPRN PRN ORAL Constipation 08/06/19 08:30 09/05/19 08:29 Sodium Chloride 1,000 ml @ 50 mls/hr Q20H IV 08/06/19 11:15 09/05/19 11:14 08/08/19 23:31 Vancomycin HCl (Firvanq) 125 mg FOUR TIMES A DAY ORAL 08/08/19 13:00 08/15/19 12:59 08/09/19 10:53 Zolpidem Tartrate (Ambien) 5 mg HSPRN PRN ORAL Insomnia 08/06/19 08:30 08/13/19 08:29 Arnaldo Easton MD Aug 09, 2019 12:50
--- NOTE | 2019-08-09 14:09 | General Progress Note ---
Assessment/Plan Problem List: (1) Diabetes ICD Codes: E11.9 - Type 2 diabetes mellitus without complications SNOMED: 76391728 (2) Malnutrition ICD Codes: E46 - Unspecified protein-calorie malnutrition SNOMED: 16209137 (3) Failure to thrive SNOMED: 12909575 Qualifiers: Qualified Codes: R62.7 - Adult failure to thrive (4) Weakness ICD Codes: R53.1 - Weakness SNOMED: 45986902 (5) UTI (urinary tract infection) ICD Codes: N39.0 - Urinary tract infection, site not specified SNOMED: 54123824 Qualifiers: Qualified Codes: N39.0 - Urinary tract infection, site not specified Status: stable, progressing Assessment/Plan: pt diet abx dc to snf if clear Subjective Constitutional: Reports: weakness Allergies: Coded Allergies: LISINOPRIL (Verified Allergy, Unknown, 08/05/19) All Systems: reviewed and negative except above Subjective calm in bed Objective Last 24 Hour Vital Signs Date Time Temp Pulse Resp B/P (MAP) Pulse Ox O2 Delivery O2 Flow Rate FiO2 08/09/19 12:00 97.4 65 18 121/65 (83) 96 08/09/19 09:00 Room Air 08/09/19 08:49 152/72 08/09/19 08:00 97.0 62 20 152/72 (98) 97 08/09/19 04:00 98.2 60 18 109/76 (87) 96 08/09/19 00:09 97.5 61 22 103/55 (71) 96 08/08/19 21:00 Room Air 08/08/19 20:00 97.5 89 22 104/80 (88) 97 08/08/19 16:00 98.0 86 20 123/64 (83) 97 Intake and Output 08/08/19 08/09/19 19:00 07:00 Intake Total 410 ml 555 ml Output Total 450 ml 800 ml Balance -40 ml -245 ml Intake Oral 360 ml IV Total 50 ml 555 ml Output Urine Total 450 ml 800 ml # Bowel Movements 1 Laboratory Tests 08/09/19 05:50: White Blood Count 5.9, Red Blood Count 4.81, Hemoglobin 14.7, Hematocrit 44.2, Mean Corpuscular Volume 92, Mean Corpuscular Hemoglobin 30.5, Mean Corpuscular Hemoglobin Concent 33.2, Red Cell Distribution Width 12.5, Platelet Count 188, Mean Platelet Volume 7.4, Neutrophils (%) (Auto) 60.8, Lymphocytes (%) (Auto) 26.5, Monocytes (%) (Auto) 11.2H, Eosinophils (%) (Auto) 1.1, Basophils (%) ( Auto) 0.5, Sodium Level 140, Potassium Level 3.6, Chloride Level 104, Carbon Dioxide Level 29, Anion Gap 7, Blood Urea Nitrogen 9, Creatinine 0.5L, Estimat Glomerular Filtration Rate , Glucose Level 78, Calcium Level 9.1, Phosphorus Level 2.7, Magnesium Level 1.6L Height (Feet): 5 Height (Inches): 1.00 Weight (Pounds): 96 General Appearance: lethargic EENT: normal ENT inspection Neck: normal alignment Cardiovascular: normal peripheral pulses, normal rate, regular rhythm Respiratory/Chest: chest wall non-tender, lungs clear, normal breath sounds Abdomen: normal bowel sounds, non tender, soft Extremities: normal inspection Edema: no edema noted Arm (L), no edema noted Arm (R), no edema noted Leg (L), no edema noted Leg (R), no edema noted Pedal (L), no edema noted Pedal (R), no edema noted Generalized Neurologic: motor weakness Skin: normal pigmentation, warm/dry Reynold Saldivar DO Aug 09, 2019 14:09
--- NOTE | 2019-08-09 15:10 | NUR ---
*-* DISCHARGE PLANNING *-* PATIENT HAS BEEN REFERRED TO: [facility] P: [phone] F: [phone]
[2019-08-09 15:55] VITALS: BP 120/69
--- NOTE | 2019-08-09 17:10 | NUR ---
CHARGE NURSE NOTE: Pt is free of diarrhea for 1 day. Spoke with , pt could be discharged tomorrow.
--- NOTE | 2019-08-09 19:14 | NUR ---
HAND-OFF: Report given to NIKITA NARAYAN RN.
--- NOTE | 2019-08-09 19:30 | NUR ---
NURSE NOTES: Received patient in no apparent distress. Non verbal. IV site patent and intact. [place] cath draining well by gravity. Bed in lowest position. Call light within reach. Will continue to monitor.
[2019-08-09 20:00] VITALS: BP 181/82
[2019-08-09] MEDS: cefTRIAXone 1 GM in D5W 55 ML IVPB SCH (21:25)
[2019-08-10] VITALS (7 sets, daily range): BP systolic 130–166; BP diastolic 57–83
[2019-08-10 05:55] LABS: BASOPHILS % (AUTO) 0.6 % (0.0-2.0); EOSINOPHILS % (AUTO) 0.9 % (0.0-3.0); HEMATOCRIT 44.3 % (37.0-47.0); HEMOGLOBIN 14.7 G/DL (12.0-16.0); MEAN CORPUSCULAR VOLUME 91 FL (80-99); MONOCYTES % (AUTO) 10.2 % (1.0-10.0); NEUTROPHILS % (AUTO) 66.3 % (45.0-75.0); PLATELET COUNT 196 K/UL (150-450); RED BLOOD COUNT 4.85 M/UL (4.20-5.40); RED CELL DISTRIBUTION WIDTH 12.5 % (11.6-14.8); WHITE BLOOD COUNT 6.4 K/UL (4.8-10.8)
[2019-08-10 06:29] LABS: ANION GAP 7 mmol/L (5-15); BLOOD UREA NITROGEN 8 mg/dL (7-18); CALCIUM 9.1 MG/DL (8.5-10.1); CARBON DIOXIDE 29 MMOL/L (21-32); CHLORIDE 104 MMOL/L (98-107); CREATININE 0.5 MG/DL (0.55-1.30); POTASSIUM 3.6 MMOL/L (3.5-5.1); SODIUM 139 MMOL/L (136-145)
[2019-08-10] MEDS: NovoLOG Insulin Flexpen SUBQ SCH ×4 (06:30→20:33)
--- NOTE | 2019-08-10 07:30 | NUR ---
NURSE NOTES: Received pt from NIKITA NARAYAN RN. Pt is nonverbal. pt is in RA, no SOB or acute respiratory distress noted. pt has fogey cath in place is running well.pt has intact IV access RH 24g is running well. all needs attended, bed is locked and is in the lowest position, call light within easy reach. will continue to monitor.
--- NOTE | 2019-08-10 07:45 | NUR ---
HAND-OFF: Report given to Meredith MEDELLIN.
[2019-08-10] MEDS: Vancomycin oral 125mg/2.5ml ORAL SCH ×4 (08:33→20:31)
[2019-08-10] MEDS: Dronabinol 2.5mg Cap ORAL SCH ×3 (08:33→17:12)
[2019-08-10] MEDS: Heparin 5000 units/ml inj SUBQ SCH ×2 (08:34→20:32)
[2019-08-10] MEDS: Losartan 25mg tab ORAL SCH (08:40)
--- NOTE | 2019-08-10 12:04 | General Progress Note ---
Assessment/Plan Problem List: (1) Diabetes ICD Codes: E11.9 - Type 2 diabetes mellitus without complications SNOMED: 45472653 (2) Malnutrition ICD Codes: E46 - Unspecified protein-calorie malnutrition SNOMED: 36195997 (3) Failure to thrive SNOMED: 71560570 Qualifiers: Qualified Codes: R62.7 - Adult failure to thrive (4) Weakness ICD Codes: R53.1 - Weakness SNOMED: 23300720 (5) UTI (urinary tract infection) ICD Codes: N39.0 - Urinary tract infection, site not specified SNOMED: 68906478 Qualifiers: Qualified Codes: N39.0 - Urinary tract infection, site not specified Status: stable, progressing Assessment/Plan: pt diet abx dc to snf if clear Subjective Constitutional: Reports: weakness Allergies: Coded Allergies: LISINOPRIL (Verified Allergy, Unknown, 08/05/19) All Systems: reviewed and negative except above Subjective calm in bed Objective Last 24 Hour Vital Signs Date Time Temp Pulse Resp B/P (MAP) Pulse Ox O2 Delivery O2 Flow Rate FiO2 08/10/19 09:00 Room Air 08/10/19 08:40 142/70 08/10/19 08:00 98.2 80 20 142/70 (94) 99 08/10/19 05:18 166/66 08/10/19 04:00 97.9 52 20 166/66 (99) 100 08/10/19 00:00 97.9 60 20 144/83 (103) 100 08/09/19 21:25 181/82 08/09/19 21:00 Room Air 08/09/19 20:00 97.9 57 18 181/82 (115) 98 08/09/19 15:55 97.2 68 20 120/69 (86) 97 Intake and Output 08/09/19 08/10/19 19:00 07:00 Intake Total 820 ml 705 ml Output Total 150 ml 800 ml Balance 670 ml -95 ml Intake Oral 120 ml IV Total 700 ml 705 ml Output Urine Total 150 ml 800 ml # Voids 2 Laboratory Tests 08/10/19 05:20: White Blood Count 6.4, Red Blood Count 4.85, Hemoglobin 14.7, Hematocrit 44.3, Mean Corpuscular Volume 91, Mean Corpuscular Hemoglobin 30.3, Mean Corpuscular Hemoglobin Concent 33.1, Red Cell Distribution Width 12.5, Platelet Count 196, Mean Platelet Volume 7.7, Neutrophils (%) (Auto) 66.3, Lymphocytes (%) (Auto) 22.0, Monocytes (%) (Auto) 10.2H, Eosinophils (%) (Auto) 0.9, Basophils (%) ( Auto) 0.6, Sodium Level 139, Potassium Level 3.6, Chloride Level 104, Carbon Dioxide Level 29, Anion Gap 7, Blood Urea Nitrogen 8, Creatinine 0.5L, Estimat Glomerular Filtration Rate , Glucose Level 91, Calcium Level 9.1 Height (Feet): 5 Height (Inches): 1.00 Weight (Pounds): 96 General Appearance: lethargic EENT: normal ENT inspection Neck: normal alignment Cardiovascular: normal peripheral pulses, normal rate, regular rhythm Respiratory/Chest: chest wall non-tender, lungs clear, normal breath sounds Abdomen: normal bowel sounds, non tender, soft Extremities: normal inspection Edema: no edema noted Arm (L), no edema noted Arm (R), no edema noted Leg (L), no edema noted Leg (R), no edema noted Pedal (L), no edema noted Pedal (R), no edema noted Generalized Neurologic: responsive, motor weakness Skin: normal pigmentation, warm/dry Reynold Saldivar DO Aug 10, 2019 12:04
--- NOTE | 2019-08-10 12:22 | Infectious Diseases Prog Note ---
Assessment/Plan Assessment/Plan 84 yo female with PMHx of DM and failure to thrive who was admitted to the hospital on 08/05/19. C. diff Diarrhea Toxin assay Pos 08/07/19 UTI UA (+) Urine Cx 08/05/19 - E,. coli (Sen to cefazolin) DM Failure to thrive Plan - Continue PO Vancomycin #3/10 ( End date 08/17/19) - Continue Ceftriaxone #5/5 Last day to day - OK to D/C from an ID perspective - Monitor BMs - Monitor CBC and Temps Thank you for this consult. We will continue to follow the patient with you. Subjective Allergies: Coded Allergies: LISINOPRIL (Verified Allergy, Unknown, 08/05/19) Subjective Afebrile No leukocytosis BM x 1 yesterday Objective Vital Signs Last 24 Hour Vital Signs Date Time Temp Pulse Resp B/P (MAP) Pulse Ox O2 Delivery O2 Flow Rate FiO2 08/10/19 09:00 Room Air 08/10/19 08:40 142/70 08/10/19 08:00 98.2 80 20 142/70 (94) 99 08/10/19 05:18 166/66 08/10/19 04:00 97.9 52 20 166/66 (99) 100 08/10/19 00:00 97.9 60 20 144/83 (103) 100 08/09/19 21:25 181/82 08/09/19 21:00 Room Air 08/09/19 20:00 97.9 57 18 181/82 (115) 98 08/09/19 15:55 97.2 68 20 120/69 (86) 97 Height (Feet): 5 Height (Inches): 1.00 Weight (Pounds): 96 Objective GEN: NAD, Satting well HEENT: NCAT, MMM, No scleral icterus CHEST: CTAB, No W/C HEART: RRR, S1, S2, Abd: Soft, NT, ND, +BS, No HSM Laboratory Tests Test 08/10/19 05:20 White Blood Count 6.4 K/UL (4.8-10.8) Red Blood Count 4.85 M/UL (4.20-5.40) Hemoglobin 14.7 G/DL (12.0-16.0) Hematocrit 44.3 % (37.0-47.0) Mean Corpuscular Volume 91 FL (80-99) Mean Corpuscular Hemoglobin 30.3 PG (27.0-31.0) Mean Corpuscular Hemoglobin Concent 33.1 G/DL (32.0-36.0) Red Cell Distribution Width 12.5 % (11.6-14.8) Platelet Count 196 K/UL (150-450) Mean Platelet Volume 7.7 FL (6.5-10.1) Neutrophils (%) (Auto) 66.3 % (45.0-75.0) Lymphocytes (%) (Auto) 22.0 % (20.0-45.0) Monocytes (%) (Auto) 10.2 % (1.0-10.0) H Eosinophils (%) (Auto) 0.9 % (0.0-3.0) Basophils (%) (Auto) 0.6 % (0.0-2.0) Sodium Level 139 MMOL/L (136-145) Potassium Level 3.6 MMOL/L (3.5-5.1) Chloride Level 104 MMOL/L (98-107) Carbon Dioxide Level 29 MMOL/L (21-32) Anion Gap 7 mmol/L (5-15) Blood Urea Nitrogen 8 mg/dL (7-18) Creatinine 0.5 MG/DL (0.55-1.30) L Estimat Glomerular Filtration Rate mL/min (>60) Glucose Level 91 MG/DL (74-106) Calcium Level 9.1 MG/DL (8.5-10.1) Current Medications Medications (Trade) Dose Ordered Sig/Patricia Route PRN Reason Start Time Stop Time Status Last Admin Dose Admin Acetaminophen (Tylenol) 650 mg Q4H PRN ORAL fever 08/06/19 08:30 09/05/19 08:29 Albuterol/ Ipratropium (Albuterol/ Ipratropium) 3 ml Q4H PRN HHN sob 08/06/19 11:15 08/11/19 11:14 Ceftriaxone Sodium 1 gm/ Dextrose 55 ml @ 110 mls/hr Q24H IVPB 08/06/19 21:00 08/13/19 20:59 08/09/19 21:25 Clonidine HCl (Catapres Tab) 0.1 mg Q6H PRN ORAL sbp above 160 08/06/19 11:15 10/15/19 11:14 08/10/19 05:18 Dextrose (Dextrose 50%) 25 ml Q30M PRN IV Hypoglycemia 08/06/19 08:30 09/05/19 08:29 Dextrose (Dextrose 50%) 50 ml Q30M PRN IV Hypoglycemia 08/06/19 08:30 09/05/19 08:29 Dronabinol (Marinol) 2.5 mg TID ORAL 08/08/19 13:00 09/07/19 12:59 08/10/19 08:33 Heparin Sodium (Porcine) (Heparin 5000 units/ml) 5,000 units EVERY 12 HOURS SUBQ 08/06/19 09:00 09/05/19 08:59 08/10/19 08:34 Insulin Aspart (NovoLOG) BEFORE MEALS AND HS SUBQ 08/06/19 11:30 09/05/19 11:29 08/09/19 12:44 Lorazepam (Ativan 2mg/ml 1ml) 0.5 mg Q4H PRN IV For Anxiety 08/06/19 08:30 08/13/19 08:29 Losartan Potassium (Cozaar) 25 mg DAILY ORAL 08/06/19 12:00 09/05/19 11:59 08/10/19 08:40 Morphine Sulfate (Morphine Sulfate) 1 mg Q4H PRN IVP For Pain 08/06/19 08:30 08/13/19 08:29 Ondansetron HCl (Zofran) 4 mg Q6H PRN IVP Nausea & Vomiting 08/06/19 08:30 09/05/19 08:29 Polyethylene Glycol (Miralax) 17 gm HSPRN PRN ORAL Constipation 08/06/19 08:30 09/05/19 08:29 Sodium Chloride 1,000 ml @ 50 mls/hr Q20H IV 08/06/19 11:15 09/05/19 11:14 08/09/19 18:15 Vancomycin HCl (Firvanq) 125 mg FOUR TIMES A DAY ORAL 08/08/19 13:00 08/15/19 12:59 08/10/19 08:33 Zolpidem Tartrate (Ambien) 5 mg HSPRN PRN ORAL Insomnia 08/06/19 08:30 08/13/19 08:29 Freeman Campbell MD Aug 10, 2019 12:22
--- NOTE | 2019-08-10 12:27 | Pulmonology Progress Note ---
Assessment/Plan Problems: (1) Failure to thrive (2) At high risk for aspiration (3) Diabetes (4) Protein-calorie malnutrition, severe (5) Limited mobility in bed (6) Flexion contractures Assessment/Plan aspiration precaution symptomatic treatment sliding scale diabetic diet check electrolytes titrate fio2 to sat of 92%\ Calorie count reviewed nutritional needs are not met Family refuses PEG One-to-one feeder dc planning Subjective ROS Limited/Unobtainable: No Constitutional: Reports: no symptoms HEENT: Repors: no symptoms Allergies: Coded Allergies: LISINOPRIL (Verified Allergy, Unknown, 08/05/19) Objective Last 24 Hour Vital Signs Date Time Temp Pulse Resp B/P (MAP) Pulse Ox O2 Delivery O2 Flow Rate FiO2 08/10/19 09:00 Room Air 08/10/19 08:40 142/70 08/10/19 08:00 98.2 80 20 142/70 (94) 99 08/10/19 05:18 166/66 08/10/19 04:00 97.9 52 20 166/66 (99) 100 08/10/19 00:00 97.9 60 20 144/83 (103) 100 08/09/19 21:25 181/82 08/09/19 21:00 Room Air 08/09/19 20:00 97.9 57 18 181/82 (115) 98 08/09/19 15:55 97.2 68 20 120/69 (86) 97 Intake and Output 08/09/19 08/10/19 19:00 07:00 Intake Total 820 ml 705 ml Output Total 150 ml 800 ml Balance 670 ml -95 ml Intake Oral 120 ml IV Total 700 ml 705 ml Output Urine Total 150 ml 800 ml # Voids 2 General Appearance: WD/WN HEENT: normocephalic, atraumatic Respiratory/Chest: chest wall non-tender, lungs clear Breasts: no masses Cardiovascular: normal peripheral pulses Abdomen: normal bowel sounds, soft, non tender Genitourinary: normal external genitalia Skin: no rash, no lesions Laboratory Tests 08/10/19 05:20: White Blood Count 6.4, Red Blood Count 4.85, Hemoglobin 14.7, Hematocrit 44.3, Mean Corpuscular Volume 91, Mean Corpuscular Hemoglobin 30.3, Mean Corpuscular Hemoglobin Concent 33.1, Red Cell Distribution Width 12.5, Platelet Count 196, Mean Platelet Volume 7.7, Neutrophils (%) (Auto) 66.3, Lymphocytes (%) (Auto) 22.0, Monocytes (%) (Auto) 10.2H, Eosinophils (%) (Auto) 0.9, Basophils (%) ( Auto) 0.6, Sodium Level 139, Potassium Level 3.6, Chloride Level 104, Carbon Dioxide Level 29, Anion Gap 7, Blood Urea Nitrogen 8, Creatinine 0.5L, Estimat Glomerular Filtration Rate , Glucose Level 91, Calcium Level 9.1 Current Medications Medications (Trade) Dose Ordered Sig/Patricia Route PRN Reason Start Time Stop Time Status Last Admin Dose Admin Acetaminophen (Tylenol) 650 mg Q4H PRN ORAL fever 08/06/19 08:30 09/05/19 08:29 Albuterol/ Ipratropium (Albuterol/ Ipratropium) 3 ml Q4H PRN HHN sob 08/06/19 11:15 08/11/19 11:14 Ceftriaxone Sodium 1 gm/ Dextrose 55 ml @ 110 mls/hr Q24H IVPB 08/06/19 21:00 08/13/19 20:59 08/09/19 21:25 Clonidine HCl (Catapres Tab) 0.1 mg Q6H PRN ORAL sbp above 160 08/06/19 11:15 09/05/19 11:14 08/10/19 05:18 Dextrose (Dextrose 50%) 25 ml Q30M PRN IV Hypoglycemia 08/06/19 08:30 09/05/19 08:29 Dextrose (Dextrose 50%) 50 ml Q30M PRN IV Hypoglycemia 08/06/19 08:30 09/05/19 08:29 Dronabinol (Marinol) 2.5 mg TID ORAL 08/08/19 13:00 09/07/19 12:59 08/10/19 12:21 Heparin Sodium (Porcine) (Heparin 5000 units/ml) 5,000 units EVERY 12 HOURS SUBQ 08/06/19 09:00 09/05/19 08:59 08/10/19 08:34 Insulin Aspart (NovoLOG) BEFORE MEALS AND HS SUBQ 08/06/19 11:30 09/05/19 11:29 08/09/19 12:44 Lorazepam (Ativan 2mg/ml 1ml) 0.5 mg Q4H PRN IV For Anxiety 08/06/19 08:30 08/13/19 08:29 Losartan Potassium (Cozaar) 25 mg DAILY ORAL 08/06/19 12:00 09/05/19 11:59 08/10/19 08:40 Morphine Sulfate (Morphine Sulfate) 1 mg Q4H PRN IVP For Pain 08/06/19 08:30 08/13/19 08:29 Ondansetron HCl (Zofran) 4 mg Q6H PRN IVP Nausea & Vomiting 08/06/19 08:30 09/05/19 08:29 Polyethylene Glycol (Miralax) 17 gm HSPRN PRN ORAL Constipation 08/06/19 08:30 09/05/19 08:29 Sodium Chloride 1,000 ml @ 50 mls/hr Q20H IV 08/06/19 11:15 09/05/19 11:14 08/09/19 18:15 Vancomycin HCl (Firvanq) 125 mg FOUR TIMES A DAY ORAL 08/08/19 13:00 08/15/19 12:59 08/10/19 12:21 Zolpidem Tartrate (Ambien) 5 mg HSPRN PRN ORAL Insomnia 08/06/19 08:30 08/13/19 08:29 Arnaldo Easton MD Aug 10, 2019 12:27
--- NOTE | 2019-08-10 13:22 | GI Progress Note ---
Assessment/Plan Problems: (1) Weakness ICD Codes: R53.1 - Weakness SNOMED: 78323801 (2) Malnutrition ICD Codes: E46 - Unspecified protein-calorie malnutrition SNOMED: 52290053 (3) Failure to thrive SNOMED: 46571584 Qualifiers: Qualified Codes: R62.7 - Adult failure to thrive Status: unchanged Status Narrative Discussed with Dr. Fonseca. Assessment/Plan Calorie count reviewed nutritional needs are not met Family refuses PEG Push p.o. Strict aspiration precautions One-to-one feeder Add Marinol Follow labs dc planning The patient was seen and examined at bedside and all new and available data was reviewed in the patients chart. I agree with the above findings, impression and plan. (Patient seen earlier today. Signature stamp does not reflect patient encounter time.). - Víctor Fonseca MD Subjective Subjective Limited Objective Last 24 Hour Vital Signs Date Time Temp Pulse Resp B/P (MAP) Pulse Ox O2 Delivery O2 Flow Rate FiO2 08/10/19 12:00 97.7 60 20 130/57 (81) 99 08/10/19 09:00 Room Air 08/10/19 08:40 142/70 08/10/19 08:00 98.2 80 20 142/70 (94) 99 08/10/19 05:18 166/66 08/10/19 04:00 97.9 52 20 166/66 (99) 100 08/10/19 00:00 97.9 60 20 144/83 (103) 100 08/09/19 21:25 181/82 08/09/19 21:00 Room Air 08/09/19 20:00 97.9 57 18 181/82 (115) 98 08/09/19 15:55 97.2 68 20 120/69 (86) 97 Intake and Output 08/09/19 08/10/19 19:00 07:00 Intake Total 820 ml 705 ml Output Total 150 ml 800 ml Balance 670 ml -95 ml Intake Oral 120 ml IV Total 700 ml 705 ml Output Urine Total 150 ml 800 ml # Voids 2 Laboratory Tests Test 08/10/19 05:20 White Blood Count 6.4 K/UL (4.8-10.8) Red Blood Count 4.85 M/UL (4.20-5.40) Hemoglobin 14.7 G/DL (12.0-16.0) Hematocrit 44.3 % (37.0-47.0) Mean Corpuscular Volume 91 FL (80-99) Mean Corpuscular Hemoglobin 30.3 PG (27.0-31.0) Mean Corpuscular Hemoglobin Concent 33.1 G/DL (32.0-36.0) Red Cell Distribution Width 12.5 % (11.6-14.8) Platelet Count 196 K/UL (150-450) Mean Platelet Volume 7.7 FL (6.5-10.1) Neutrophils (%) (Auto) 66.3 % (45.0-75.0) Lymphocytes (%) (Auto) 22.0 % (20.0-45.0) Monocytes (%) (Auto) 10.2 % (1.0-10.0) H Eosinophils (%) (Auto) 0.9 % (0.0-3.0) Basophils (%) (Auto) 0.6 % (0.0-2.0) Sodium Level 139 MMOL/L (136-145) Potassium Level 3.6 MMOL/L (3.5-5.1) Chloride Level 104 MMOL/L (98-107) Carbon Dioxide Level 29 MMOL/L (21-32) Anion Gap 7 mmol/L (5-15) Blood Urea Nitrogen 8 mg/dL (7-18) Creatinine 0.5 MG/DL (0.55-1.30) L Estimat Glomerular Filtration Rate mL/min (>60) Glucose Level 91 MG/DL (74-106) Calcium Level 9.1 MG/DL (8.5-10.1) Height (Feet): 5 Height (Inches): 1.00 Weight (Pounds): 96 General Appearance: no apparent distress Cardiovascular: normal rate Respiratory/Chest: normal breath sounds, no respiratory distress Abdominal Exam: normal bowel sounds, non tender, soft Extremities: non-tender Objective Reported by the RN the patient tolerated approximately 25% of her meals Remi Rico NP Aug 10, 2019 13:22
--- NOTE | 2019-08-10 19:21 | NUR ---
HAND-OFF: Report given to CATY MEDELLIN.
--- NOTE | 2019-08-10 19:46 | NUR ---
NURSE NOTES: Patient in bed, awake, nonverbal. Unable to make needs known. BEd in low and locked position. Kept clean and comfortable. REspiration is even and unlabored. No s/s of pain or discomfort noted. Skin is warm and dry to touch. Abdomen is soft and non distended. IV site noted. Call light is at bedside. Will continue plan of care.
[2019-08-10] MEDS: cefTRIAXone 1 GM in D5W 55 ML IVPB SCH (20:31)
[2019-08-11 04:00] VITALS: BP 140/77
[2019-08-11 05:45] LABS: BASOPHILS % (AUTO) 0.7 % (0.0-2.0); HEMATOCRIT 40.1 % (37.0-47.0); HEMOGLOBIN 13.3 G/DL (12.0-16.0); LYMPHOCYTES % (AUTO) 11.6 % (20.0-45.0); MEAN CORPUSCULAR VOLUME 91 FL (80-99); NEUTROPHILS % (AUTO) 82.7 % (45.0-75.0); PLATELET COUNT 192 K/UL (150-450); RED CELL DISTRIBUTION WIDTH 12.5 % (11.6-14.8); WHITE BLOOD COUNT 8.7 K/UL (4.8-10.8)
[2019-08-11 06:02] LABS: BLOOD UREA NITROGEN 17 mg/dL (7-18); CALCIUM 8.8 MG/DL (8.5-10.1); CHLORIDE 100 MMOL/L (98-107); CREATININE 0.7 MG/DL (0.55-1.30); POTASSIUM 3.5 MMOL/L (3.5-5.1); SODIUM 136 MMOL/L (136-145)
[2019-08-11] MEDS: NovoLOG Insulin Flexpen SUBQ SCH ×4 (06:13→20:50)
[2019-08-11 06:45] LABS: CARBON DIOXIDE 24 MMOL/L (21-32)
[2019-08-11 06:47] LABS: ANION GAP 12 mmol/L (5-15)
--- NOTE | 2019-08-11 07:27 | NUR ---
HAND-OFF: Report given to Lor Huffman.
--- NOTE | 2019-08-11 07:35 | NUR ---
NURSE NOTES: received report from VIGNESH Alonso. patient in bed. sleeping. no respiratory distress noted. no facial grimacing. IV on RH running fluid. f/c draining. contact isolation. PPE at all times. bed in the lowest position and locked. call light within reach. alarm on. will continue to provide plan of care.
[2019-08-11 08:00] VITALS: BP 113/60
[2019-08-11] MEDS: Losartan 25mg tab ORAL SCH (08:38)
[2019-08-11] MEDS: Vancomycin oral 125mg/2.5ml ORAL SCH ×4 (08:38→20:48)
[2019-08-11] MEDS: Dronabinol 2.5mg Cap ORAL SCH ×3 (08:38→17:56)
[2019-08-11] MEDS: Heparin 5000 units/ml inj SUBQ SCH ×2 (08:40→20:50)
--- NOTE | 2019-08-11 10:32 | GI Progress Note ---
Assessment/Plan Problems: (1) Weakness ICD Codes: R53.1 - Weakness SNOMED: 29664312 (2) Malnutrition ICD Codes: E46 - Unspecified protein-calorie malnutrition SNOMED: 75288234 (3) Failure to thrive SNOMED: 43643310 Qualifiers: Qualified Codes: R62.7 - Adult failure to thrive Status: unchanged Status Narrative Discussed with Dr. Fonseca. Assessment/Plan Calorie count reviewed nutritional needs are not met Family refuses PEG Push p.o. Strict aspiration precautions One-to-one feeder Add Marinol Follow labs dc planning The patient was seen and examined at bedside and all new and available data was reviewed in the patients chart. I agree with the above findings, impression and plan. (Patient seen earlier today. Signature stamp does not reflect patient encounter time.). - Víctor Fonseca MD Subjective Subjective Limited Objective Last 24 Hour Vital Signs Date Time Temp Pulse Resp B/P (MAP) Pulse Ox O2 Delivery O2 Flow Rate FiO2 08/11/19 08:38 113/60 08/11/19 08:00 98.3 69 20 113/60 (77) 99 08/11/19 04:00 99.0 73 20 140/77 (98) 96 08/10/19 23:56 98.5 68 18 144/60 (88) 96 08/10/19 20:50 Room Air 08/10/19 20:00 99.4 67 20 160/60 (93) 97 08/10/19 16:00 99.3 64 20 137/59 (85) 99 08/10/19 12:00 97.7 60 20 130/57 (81) 99 Intake and Output 08/10/19 08/11/19 19:00 07:00 Intake Total 600 ml 555 ml Output Total 250 ml 150 ml Balance 350 ml 405 ml IV Total 600 ml 555 ml Output Urine Total 250 ml 150 ml # Voids 2 Laboratory Tests Test 08/11/19 04:57 White Blood Count 8.7 K/UL (4.8-10.8) Red Blood Count 4.40 M/UL (4.20-5.40) Hemoglobin 13.3 G/DL (12.0-16.0) Hematocrit 40.1 % (37.0-47.0) Mean Corpuscular Volume 91 FL (80-99) Mean Corpuscular Hemoglobin 30.2 PG (27.0-31.0) Mean Corpuscular Hemoglobin Concent 33.2 G/DL (32.0-36.0) Red Cell Distribution Width 12.5 % (11.6-14.8) Platelet Count 192 K/UL (150-450) Mean Platelet Volume 6.6 FL (6.5-10.1) Neutrophils (%) (Auto) 82.7 % (45.0-75.0) H Lymphocytes (%) (Auto) 11.6 % (20.0-45.0) L Monocytes (%) (Auto) 5.0 % (1.0-10.0) Eosinophils (%) (Auto) 0.0 % (0.0-3.0) Basophils (%) (Auto) 0.7 % (0.0-2.0) Sodium Level 136 MMOL/L (136-145) Potassium Level 3.5 MMOL/L (3.5-5.1) Chloride Level 100 MMOL/L (98-107) Carbon Dioxide Level 24 MMOL/L (21-32) Anion Gap 12 mmol/L (5-15) Blood Urea Nitrogen 17 mg/dL (7-18) Creatinine 0.7 MG/DL (0.55-1.30) Estimat Glomerular Filtration Rate mL/min (>60) Glucose Level 90 MG/DL (74-106) Calcium Level 8.8 MG/DL (8.5-10.1) Height (Feet): 5 Height (Inches): 1.00 Weight (Pounds): 96 General Appearance: no apparent distress Cardiovascular: normal rate Respiratory/Chest: normal breath sounds, no respiratory distress Abdominal Exam: normal bowel sounds, non tender, soft Extremities: non-tender Objective Reported by the RN the patient tolerated approximately 25% of her meals Remi Rico NP Aug 11, 2019 10:32
[2019-08-11 12:00] VITALS: BP 145/55
--- NOTE | 2019-08-11 13:09 | NUR ---
RD ASSESSMENT & RECOMMENDATIONS SEE CARE ACTIVITY FOR COMPLETE ASSESSMENT DAILY ESTIMATED NEEDS: Needs based on FTT, 46kg 30-35 kcals/kg 6063-3062 total kcals 1-1.5 g protein/kg 46-69 g total protein 25-30 mL/kg 2375-5251 total fluid mLs NUTRITION DIAGNOSIS: Increased kcal and pro needs r/t wound healing as evidenced by pt w/ coccyx pressure ulcer, w/ generalized moderate to severe wasting. CURRENT DIET: Regular liquify puree w/ NTL PO DIET RECOMMENDATIONS: Liberalized Regular diet / texture per REVENUE INTEGRITY ANALYST ENTERAL NUTRITION RECOMMENDATIONS: Osmolite 1.2 @48ml/hr x24 hrs to provide 1152ml, 1382 kcal, 64g pro, 945ml free H2O - As medically indicated, obtain GI access, start Osmolite 1.2 @18ml/hr for 6 hrs. - Advance as tolerated 10ml/hr q4-6 hrs to goal rate. - Flush per MD, HOB over 30 degrees - Monitor BG and need for carb control TF / NISS ADDITIONAL RECOMMENDATIONS: 1) Obtain calibrated bed scale wts 2) F/up w/ kcal count- incomplete 3) Add Ensure Enlive TID w/ meals 4) REVENUE INTEGRITY ANALYST for appropriate texture 5) Wound care: add Shiraz BID + Vit C 250mg daily to maintain skin integrity 6) C-diff +, check lytes daily
--- NOTE | 2019-08-11 14:00 | NUR ---
NURSE NOTES: patient's daughter concerned the patient does not talk since admitted hospital, noticed patient was drooling when she was lying down on her side. the daughter talked to charge nurse/VIGNESH Warren. charge nurse notified Yariel Izaguirre and is going to look for a neuro consult for patient.
--- NOTE | 2019-08-11 14:01 | NUR ---
TRANSMISSION BUILDERFURNITURE SALES ASSOCIATE SI: FAILURE TO THRIVE c-diff T. 98.3 HR 63 RR 20 B/P 145/85 IS: VANCO PO CEFTRIAXONE IV MED/SURG STATUS
--- NOTE | 2019-08-11 14:36 | Infectious Diseases Prog Note ---
Assessment/Plan Assessment/Plan 84 yo female with PMHx of DM and failure to thrive who was admitted to the hospital on 08/05/19. C. diff Diarrhea Toxin assay Pos 08/07/19 UTI UA (+) Urine Cx 08/05/19 - E,. coli (Sen to cefazolin) DM Failure to thrive Plan - Continue PO Vancomycin #4/10 ( End date 08/17/19) - 08/11/19 SP Ceftriaxone #6 - OK to D/C from an ID perspective - Monitor BMs - Monitor CBC and Temps Thank you for this consult. We will continue to follow the patient with you. Subjective Allergies: Coded Allergies: LISINOPRIL (Verified Allergy, Unknown, 08/05/19) Subjective Afebrile No leukocytosis BM x 0 yesterday Objective Vital Signs Last 24 Hour Vital Signs Date Time Temp Pulse Resp B/P (MAP) Pulse Ox O2 Delivery O2 Flow Rate FiO2 08/11/19 12:00 98.3 63 20 145/55 (85) 99 08/11/19 09:00 Room Air 08/11/19 08:38 113/60 08/11/19 08:00 98.3 69 20 113/60 (77) 99 08/11/19 04:00 99.0 73 20 140/77 (98) 96 08/10/19 23:56 98.5 68 18 144/60 (88) 96 08/10/19 20:50 Room Air 08/10/19 20:00 99.4 67 20 160/60 (93) 97 08/10/19 16:00 99.3 64 20 137/59 (85) 99 Height (Feet): 5 Height (Inches): 1.00 Weight (Pounds): 96 Objective GEN: NAD HEENT: NCAT, MMM, No scleral icterus CHEST: CTAB, No W/C HEART: RRR, S1, S2, Abd: Soft, NT, ND, +BS, No HSM Laboratory Tests Test 08/11/19 04:57 White Blood Count 8.7 K/UL (4.8-10.8) Red Blood Count 4.40 M/UL (4.20-5.40) Hemoglobin 13.3 G/DL (12.0-16.0) Hematocrit 40.1 % (37.0-47.0) Mean Corpuscular Volume 91 FL (80-99) Mean Corpuscular Hemoglobin 30.2 PG (27.0-31.0) Mean Corpuscular Hemoglobin Concent 33.2 G/DL (32.0-36.0) Red Cell Distribution Width 12.5 % (11.6-14.8) Platelet Count 192 K/UL (150-450) Mean Platelet Volume 6.6 FL (6.5-10.1) Neutrophils (%) (Auto) 82.7 % (45.0-75.0) H Lymphocytes (%) (Auto) 11.6 % (20.0-45.0) L Monocytes (%) (Auto) 5.0 % (1.0-10.0) Eosinophils (%) (Auto) 0.0 % (0.0-3.0) Basophils (%) (Auto) 0.7 % (0.0-2.0) Sodium Level 136 MMOL/L (136-145) Potassium Level 3.5 MMOL/L (3.5-5.1) Chloride Level 100 MMOL/L (98-107) Carbon Dioxide Level 24 MMOL/L (21-32) Anion Gap 12 mmol/L (5-15) Blood Urea Nitrogen 17 mg/dL (7-18) Creatinine 0.7 MG/DL (0.55-1.30) Estimat Glomerular Filtration Rate mL/min (>60) Glucose Level 90 MG/DL (74-106) Calcium Level 8.8 MG/DL (8.5-10.1) Current Medications Medications (Trade) Dose Ordered Sig/Patricia Route PRN Reason Start Time Stop Time Status Last Admin Dose Admin Acetaminophen (Tylenol) 650 mg Q4H PRN ORAL fever 08/06/19 08:30 09/05/19 08:29 Ceftriaxone Sodium 1 gm/ Dextrose 55 ml @ 110 mls/hr Q24H IVPB 08/06/19 21:00 08/13/19 20:59 08/10/19 20:31 Clonidine HCl (Catapres Tab) 0.1 mg Q6H PRN ORAL sbp above 160 08/06/19 11:15 09/05/19 11:14 08/10/19 05:18 Dextrose (Dextrose 50%) 25 ml Q30M PRN IV Hypoglycemia 08/06/19 08:30 09/05/19 08:29 Dextrose (Dextrose 50%) 50 ml Q30M PRN IV Hypoglycemia 08/06/19 08:30 09/05/19 08:29 Dronabinol (Marinol) 2.5 mg TID ORAL 08/08/19 13:00 09/07/19 12:59 08/11/19 12:26 Heparin Sodium (Porcine) (Heparin 5000 units/ml) 5,000 units EVERY 12 HOURS SUBQ 08/06/19 09:00 09/05/19 08:59 08/11/19 08:40 Insulin Aspart (NovoLOG) BEFORE MEALS AND HS SUBQ 08/06/19 11:30 09/05/19 11:29 08/10/19 20:33 Lorazepam (Ativan 2mg/ml 1ml) 0.5 mg Q4H PRN IV For Anxiety 08/06/19 08:30 08/13/19 08:29 Losartan Potassium (Cozaar) 25 mg DAILY ORAL 08/06/19 12:00 09/05/19 11:59 08/11/19 08:38 Morphine Sulfate (Morphine Sulfate) 1 mg Q4H PRN IVP For Pain 08/06/19 08:30 08/13/19 08:29 Ondansetron HCl (Zofran) 4 mg Q6H PRN IVP Nausea & Vomiting 08/06/19 08:30 09/05/19 08:29 Polyethylene Glycol (Miralax) 17 gm HSPRN PRN ORAL Constipation 08/06/19 08:30 09/05/19 08:29 Sodium Chloride 1,000 ml @ 50 mls/hr Q20H IV 08/06/19 11:15 09/05/19 11:14 08/11/19 11:20 Vancomycin HCl (Firvanq) 125 mg FOUR TIMES A DAY ORAL 08/08/19 13:00 08/15/19 12:59 08/11/19 12:26 Zolpidem Tartrate (Ambien) 5 mg HSPRN PRN ORAL Insomnia 08/06/19 08:30 08/13/19 08:29 Freeman Campbell MD Aug 11, 2019 14:36
--- NOTE | 2019-08-11 14:58 | General Progress Note ---
Assessment/Plan Problem List: (1) Diabetes ICD Codes: E11.9 - Type 2 diabetes mellitus without complications SNOMED: 64411736 (2) Malnutrition ICD Codes: E46 - Unspecified protein-calorie malnutrition SNOMED: 33450585 (3) Failure to thrive SNOMED: 40260166 Qualifiers: Qualified Codes: R62.7 - Adult failure to thrive (4) Weakness ICD Codes: R53.1 - Weakness SNOMED: 74647847 (5) UTI (urinary tract infection) ICD Codes: N39.0 - Urinary tract infection, site not specified SNOMED: 10695762 Qualifiers: Qualified Codes: N39.0 - Urinary tract infection, site not specified Status: unchanged Assessment/Plan: pt diet abx neuro eval merman cbc bmp am Subjective Constitutional: Reports: weakness Allergies: Coded Allergies: LISINOPRIL (Verified Allergy, Unknown, 08/05/19) All Systems: reviewed and negative except above Subjective calm in bed Objective Last 24 Hour Vital Signs Date Time Temp Pulse Resp B/P (MAP) Pulse Ox O2 Delivery O2 Flow Rate FiO2 08/11/19 12:00 98.3 63 20 145/55 (85) 99 08/11/19 09:00 Room Air 08/11/19 08:38 113/60 08/11/19 08:00 98.3 69 20 113/60 (77) 99 08/11/19 04:00 99.0 73 20 140/77 (98) 96 08/10/19 23:56 98.5 68 18 144/60 (88) 96 08/10/19 20:50 Room Air 08/10/19 20:00 99.4 67 20 160/60 (93) 97 08/10/19 16:00 99.3 64 20 137/59 (85) 99 Intake and Output 08/10/19 08/11/19 19:00 07:00 Intake Total 600 ml 605 ml Output Total 250 ml 150 ml Balance 350 ml 455 ml IV Total 600 ml 605 ml Output Urine Total 250 ml 150 ml # Voids 2 Laboratory Tests 08/11/19 04:57: White Blood Count 8.7, Red Blood Count 4.40, Hemoglobin 13.3, Hematocrit 40.1, Mean Corpuscular Volume 91, Mean Corpuscular Hemoglobin 30.2, Mean Corpuscular Hemoglobin Concent 33.2, Red Cell Distribution Width 12.5, Platelet Count 192, Mean Platelet Volume 6.6, Neutrophils (%) (Auto) 82.7H, Lymphocytes (%) (Auto) 11.6L, Monocytes (%) (Auto) 5.0, Eosinophils (%) (Auto) 0.0, Basophils (%) (Auto ) 0.7, Sodium Level 136, Potassium Level 3.5, Chloride Level 100, Carbon Dioxide Level 24, Anion Gap 12, Blood Urea Nitrogen 17, Creatinine 0.7, Estimat Glomerular Filtration Rate , Glucose Level 90, Calcium Level 8.8 Height (Feet): 5 Height (Inches): 1.00 Weight (Pounds): 96 General Appearance: lethargic EENT: normal ENT inspection Neck: normal alignment Cardiovascular: normal peripheral pulses, normal rate, regular rhythm Respiratory/Chest: chest wall non-tender, lungs clear, normal breath sounds Abdomen: normal bowel sounds, non tender, soft Extremities: normal inspection Edema: no edema noted Arm (L), no edema noted Arm (R), no edema noted Leg (L), no edema noted Leg (R), no edema noted Pedal (L), no edema noted Pedal (R), no edema noted Generalized Neurologic: motor weakness Skin: normal pigmentation, warm/dry Reynold Saldivar DO Aug 11, 2019 14:58
--- NOTE | 2019-08-11 14:58 | Pulmonology Progress Note ---
Assessment/Plan Problems: (1) Failure to thrive (2) At high risk for aspiration (3) Diabetes (4) Protein-calorie malnutrition, severe (5) Limited mobility in bed (6) Flexion contractures Assessment/Plan aspiration precaution symptomatic treatment sliding scale diabetic diet check electrolytes titrate fio2 to sat of 92%\ Calorie count reviewed nutritional needs are not met Family refuses PEG One-to-one feeder discussed with pts daughter. she is out of town dc planning Subjective ROS Limited/Unobtainable: No Constitutional: Reports: no symptoms Allergies: Coded Allergies: LISINOPRIL (Verified Allergy, Unknown, 08/05/19) Objective Last 24 Hour Vital Signs Date Time Temp Pulse Resp B/P (MAP) Pulse Ox O2 Delivery O2 Flow Rate FiO2 08/11/19 12:00 98.3 63 20 145/55 (85) 99 08/11/19 09:00 Room Air 08/11/19 08:38 113/60 08/11/19 08:00 98.3 69 20 113/60 (77) 99 08/11/19 04:00 99.0 73 20 140/77 (98) 96 08/10/19 23:56 98.5 68 18 144/60 (88) 96 08/10/19 20:50 Room Air 08/10/19 20:00 99.4 67 20 160/60 (93) 97 08/10/19 16:00 99.3 64 20 137/59 (85) 99 Intake and Output 08/10/19 08/11/19 19:00 07:00 Intake Total 600 ml 605 ml Output Total 250 ml 150 ml Balance 350 ml 455 ml IV Total 600 ml 605 ml Output Urine Total 250 ml 150 ml # Voids 2 General Appearance: cachetic HEENT: normocephalic, atraumatic Respiratory/Chest: chest wall non-tender, lungs clear Breasts: no masses Cardiovascular: normal peripheral pulses, normal rate Abdomen: soft, non tender Extremities: no clubbing Laboratory Tests 08/11/19 04:57: White Blood Count 8.7, Red Blood Count 4.40, Hemoglobin 13.3, Hematocrit 40.1, Mean Corpuscular Volume 91, Mean Corpuscular Hemoglobin 30.2, Mean Corpuscular Hemoglobin Concent 33.2, Red Cell Distribution Width 12.5, Platelet Count 192, Mean Platelet Volume 6.6, Neutrophils (%) (Auto) 82.7H, Lymphocytes (%) (Auto) 11.6L, Monocytes (%) (Auto) 5.0, Eosinophils (%) (Auto) 0.0, Basophils (%) (Auto ) 0.7, Sodium Level 136, Potassium Level 3.5, Chloride Level 100, Carbon Dioxide Level 24, Anion Gap 12, Blood Urea Nitrogen 17, Creatinine 0.7, Estimat Glomerular Filtration Rate , Glucose Level 90, Calcium Level 8.8 Current Medications Medications (Trade) Dose Ordered Sig/Patricia Route PRN Reason Start Time Stop Time Status Last Admin Dose Admin Acetaminophen (Tylenol) 650 mg Q4H PRN ORAL fever 08/06/19 08:30 09/05/19 08:29 Clonidine HCl (Catapres Tab) 0.1 mg Q6H PRN ORAL sbp above 160 08/06/19 11:15 09/05/19 11:14 08/10/19 05:18 Dextrose (Dextrose 50%) 25 ml Q30M PRN IV Hypoglycemia 08/06/19 08:30 09/05/19 08:29 Dextrose (Dextrose 50%) 50 ml Q30M PRN IV Hypoglycemia 08/06/19 08:30 09/05/19 08:29 Dronabinol (Marinol) 2.5 mg TID ORAL 08/08/19 13:00 09/07/19 12:59 08/11/19 12:26 Heparin Sodium (Porcine) (Heparin 5000 units/ml) 5,000 units EVERY 12 HOURS SUBQ 08/06/19 09:00 09/05/19 08:59 08/11/19 08:40 Insulin Aspart (NovoLOG) BEFORE MEALS AND HS SUBQ 08/06/19 11:30 09/05/19 11:29 08/10/19 20:33 Lorazepam (Ativan 2mg/ml 1ml) 0.5 mg Q4H PRN IV For Anxiety 08/06/19 08:30 08/13/19 08:29 Losartan Potassium (Cozaar) 25 mg DAILY ORAL 08/06/19 12:00 09/05/19 11:59 08/11/19 08:38 Morphine Sulfate (Morphine Sulfate) 1 mg Q4H PRN IVP For Pain 08/06/19 08:30 08/13/19 08:29 Ondansetron HCl (Zofran) 4 mg Q6H PRN IVP Nausea & Vomiting 08/06/19 08:30 09/05/19 08:29 Polyethylene Glycol (Miralax) 17 gm HSPRN PRN ORAL Constipation 08/06/19 08:30 09/05/19 08:29 Sodium Chloride 1,000 ml @ 50 mls/hr Q20H IV 08/06/19 11:15 09/05/19 11:14 08/11/19 11:20 Vancomycin HCl (Firvanq) 125 mg FOUR TIMES A DAY ORAL 08/08/19 13:00 08/15/19 12:59 08/11/19 12:26 Zolpidem Tartrate (Ambien) 5 mg HSPRN PRN ORAL Insomnia 08/06/19 08:30 08/13/19 08:29 Arnaldo Easton MD Aug 11, 2019 14:58
[2019-08-11 16:00] VITALS: BP 113/85
--- NOTE | 2019-08-11 16:35 | NUR ---
NURSE NOTES: blood sugar was 119@1630. RN held insulin 1unit d/t patient has not eaten. the daughter at the bedside was agreed with it. RN will continue to monitor patient's condition.
[2019-08-11] MEDS ORDERED: Isovue-300 100ml vial INJ PRN (17:15)
[2019-08-11 20:00] VITALS: BP 151/63
--- NOTE | 2019-08-11 20:02 | NUR ---
NURSE NOTES: Pt in bed with head of bed elevated, daughter at bedside and now reconsidering G tube placement and wants to speak to the Dr, IV fluids running, espinoza catheter in place, will continue to monitor.
[2019-08-12] VITALS: BP 155/72
--- NOTE | 2019-08-12 03:30 | Consultation ---
DATE OF CONSULTATION: 08/11/2019 NOTE: VERY POOR AUDIO NEUROLOGIC CONSULTATION CONSULTING PHYSICIAN: Mark Anthony Wilkinson M.D. CHIEF COMPLAINT: This is an 84-year-old right-handed -[place] woman with dementia, probably Alzheimer disease for at least 5 years or longer, with a chief complaint of change in her mental status beginning on Wednesday. The patient was recently found to have urinary tract infection. The patient was brought in by the EMS from the [facility] with reduced appetite and possible fever, which was about 99.5 degrees in the last few days. The patient, according to the daughter, was talking, but according to the emergency room report, she was nonverbal. The patient was lethargic as well. Medications include , ceftriaxone, . She denies any history of alcohol use. Denies any . Does not smoke. She has a questionable . She had an EKG on . The blood culture did not grow . The urine culture grew out . CBC was drawn. . Albumin level was 3.2. Cholesterol was high at 347 with an LDL of 171 . The patient's was 1.6. . The patient was . The patient has been . . PAST MEDICAL HISTORY/PAST MEDICAL ILLNESSES: 1. AODM, type 2. 2. Hypertension. 3. Asthma. 4. Failure to thrive. MEDICATIONS: She is on , regular insulin, , multivitamins, potassium chloride. SURGICAL HISTORY: Right hip surgery, year unknown. FAMILY HISTORY: Unavailable. . PHYSICAL EXAMINATION: GENERAL: The patient is a well developed, chronically ill woman who is lying in bed , eyes closed, . VITAL SIGNS: Blood pressure 150/85, temperature is 99.3 degrees, pulse is 67 and irregular, respiratory rate is 20. HEENT: . LUNGS: Appear to be clear. CARDIOVASCULAR: Heart sounds are distant. There are no murmurs or rubs appreciated. ABDOMEN: There is no tenderness. cannot be appreciated. EXTREMITIES: Appeared to be grossly intact. NEUROLOGIC EXAMINATION: MENTAL STATUS: The patient eyes closed. The patient open her eyes. Pupils are round. There is no response to her name. CRANIAL NERVE EXAMINATION: CRANIAL NERVE II: Could not be tested. CRANIAL NERVE III, IV, AND : Could not be tested. CRANIAL NERVE V: Corneals were intact to fine touch. CRANIAL NERVE VII: Facial strength appeared to be fairly symmetrical. CRANIAL NERVE VIII TO XII: Could not be tested. . MUSCLE EXAMINATION: Muscle bulk is symmetrically decreased. Tone is minimally increased in the lower extremities and . She could move her arms normally, but there was no movement of her lower extremities. Reflexes are +2 in the upper extremities, 0 at the knees, and +1 at least at the right ankle. Toe signs were mute at least on the right side. IMPRESSION: This patient has diffuse multifocal encephalopathies, probably metabolic, superimposed on dementia, probably Alzheimer disease. Family does not know why she cannot walk. Her daughter does not know if she ever had an MRI or CT scan in the past. I think we should probably do a CT scan of the brain minimally at least to rule out hydrocephalus. Metabolic encephalopathy of course is related to her urinary tract infection other than she has meningitis at this time. The patient was started on vancomycin and Rocephin. Rocephin was started on 08/06/2019. The vancomycin was started on 08/08/2019. She also has Ambien, losartan, morphine, Zofran, clonidine 0.1 mg a day. The patient is a DNR. The patient has significant subdural , she probably would not be an operative candidate anyway. However, the CT scan should be done to evaluate her . At this point, I do not think she has meningitis. and her blood cultures are negative. PLAN: 1. CT scan of the brain. 2. Serum ammonia level. 3. I will follow the patient with you. 4. The patient had serum ammonia drawn, although I do not think she has hepatic encephalopathy. Thank you for this interesting case. Mark Anthony MD Minh DR: LESA JOB#: [id number] CC:
[2019-08-12 04:00] VITALS: BP 150/60
[2019-08-12] MEDS: NovoLOG Insulin Flexpen SUBQ SCH ×4 (06:21→20:15)
[2019-08-12 06:31] LABS: BASOPHILS % (AUTO) 0.6 % (0.0-2.0); HEMATOCRIT 39.9 % (37.0-47.0); HEMOGLOBIN 13.3 G/DL (12.0-16.0); MEAN CORPUSCULAR VOLUME 91 FL (80-99); NEUTROPHILS % (AUTO) 81.4 % (45.0-75.0); PLATELET COUNT 177 K/UL (150-450); RED BLOOD COUNT 4.39 M/UL (4.20-5.40); RED CELL DISTRIBUTION WIDTH 12.3 % (11.6-14.8); WHITE BLOOD COUNT 9.1 K/UL (4.8-10.8)
[2019-08-12 06:48] LABS: ANION GAP 10 mmol/L (5-15); BLOOD UREA NITROGEN 15 mg/dL (7-18); CALCIUM 8.8 MG/DL (8.5-10.1); CARBON DIOXIDE 24 MMOL/L (21-32); CHLORIDE 103 MMOL/L (98-107); CREATININE 0.5 MG/DL (0.55-1.30); POTASSIUM 3.8 MMOL/L (3.5-5.1); SODIUM 137 MMOL/L (136-145)
--- NOTE | 2019-08-12 07:05 | NUR ---
HAND-OFF: Report given to VIGNESH Huffman.
--- NOTE | 2019-08-12 07:56 | NUR ---
NURSE NOTES: received report from VIGNESH Brown. patient in bed. sleeping. breathing even and unlabored. no facial grimacing noted. IV on LH24. running fluid. F/C draining. contact isolation. PPE at all times. bed in the lowest position. call light within reach. alarm on. will continue to provide plan of care.
[2019-08-12 08:00] VITALS: BP 144/73
--- NOTE | 2019-08-12 09:35 | Pulmonology Progress Note ---
Assessment/Plan Problems: (1) Failure to thrive (2) At high risk for aspiration (3) Diabetes (4) Protein-calorie malnutrition, severe (5) Limited mobility in bed (6) Flexion contractures Assessment/Plan aspiration precaution symptomatic treatment sliding scale diabetic diet check electrolytes titrate fio2 to sat of 92%\ Calorie count reviewed nutritional needs are not met Family refuses PEG One-to-one feeder discussed with pts daughter. she is out of town, family considering PEG placement dc planning Subjective ROS Limited/Unobtainable: Yes Interval Events: looks comfortable Allergies: Coded Allergies: LISINOPRIL (Verified Allergy, Unknown, 08/05/19) Objective Last 24 Hour Vital Signs Date Time Temp Pulse Resp B/P (MAP) Pulse Ox O2 Delivery O2 Flow Rate FiO2 08/12/19 04:00 98.5 73 21 150/60 (90) 95 08/12/19 00:00 98.0 65 20 155/72 (99) 95 08/11/19 21:00 Room Air 08/11/19 20:00 98.4 66 20 151/63 (92) 95 08/11/19 16:00 99.2 71 20 113/85 (94) 99 08/11/19 12:00 98.3 63 20 145/55 (85) 99 Intake and Output 08/11/19 08/12/19 18:59 06:59 Intake Total 720 ml 720 ml Output Total 200 ml 150 ml Balance 520 ml 570 ml Intake Oral 120 ml 120 ml IV Total 600 ml 600 ml Output Urine Total 200 ml 150 ml # Voids 2 1 # Bowel Movements 1 Objective General Appearance: cachectic HEENT: normocephalic, atraumatic Respiratory/Chest: chest wall non-tender, lungs clear Breasts: no masses Cardiovascular: normal peripheral pulses Abdomen: normal bowel sounds, soft, non tender Genitourinary: normal external genitalia Extremities: no clubbing 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 II-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 grossly normal Lymphatic: no neck adenopathy Laboratory Tests 08/11/19 18:05: Ammonia < 10L 08/12/19 05:50: White Blood Count 9.1, Red Blood Count 4.39, Hemoglobin 13.3, Hematocrit 39.9, Mean Corpuscular Volume 91, Mean Corpuscular Hemoglobin 30.4, Mean Corpuscular Hemoglobin Concent 33.5, Red Cell Distribution Width 12.3, Platelet Count 177, Mean Platelet Volume 6.4L, Neutrophils (%) (Auto) 81.4H, Lymphocytes (%) (Auto) 10.0L, Monocytes (%) (Auto) 8.0, Eosinophils (%) (Auto) 0.0, Basophils (%) (Auto ) 0.6, Sodium Level 137, Potassium Level 3.8, Chloride Level 103, Carbon Dioxide Level 24, Anion Gap 10, Blood Urea Nitrogen 15, Creatinine 0.5L, Estimat Glomerular Filtration Rate , Glucose Level 93, Calcium Level 8.8 Current Medications Medications (Trade) Dose Ordered Sig/Patricia Route PRN Reason Start Time Stop Time Status Last Admin Dose Admin Acetaminophen (Tylenol) 650 mg Q4H PRN ORAL fever 08/06/19 08:30 09/05/19 08:29 Clonidine HCl (Catapres Tab) 0.1 mg Q6H PRN ORAL sbp above 160 08/06/19 11:15 09/05/19 11:14 08/10/19 05:18 Dextrose (Dextrose 50%) 25 ml Q30M PRN IV Hypoglycemia 08/06/19 08:30 09/05/19 08:29 Dextrose (Dextrose 50%) 50 ml Q30M PRN IV Hypoglycemia 08/06/19 08:30 09/05/19 08:29 Dronabinol (Marinol) 2.5 mg TID ORAL 08/08/19 13:00 09/07/19 12:59 08/11/19 17:56 Heparin Sodium (Porcine) (Heparin 5000 units/ml) 5,000 units EVERY 12 HOURS SUBQ 08/06/19 09:00 09/05/19 08:59 08/11/19 20:50 Insulin Aspart (NovoLOG) BEFORE MEALS AND HS SUBQ 08/06/19 11:30 09/05/19 11:29 08/10/19 20:33 Iopamidol (Isovue-300 100ml) 100 ml NOW PRN INJ Radiology Procedure 08/11/19 17:15 08/13/19 17:04 Lorazepam (Ativan 2mg/ml 1ml) 0.5 mg Q4H PRN IV For Anxiety 08/06/19 08:30 08/13/19 08:29 Losartan Potassium (Cozaar) 25 mg DAILY ORAL 08/06/19 12:00 09/05/19 11:59 08/11/19 08:38 Morphine Sulfate (Morphine Sulfate) 1 mg Q4H PRN IVP For Pain 08/06/19 08:30 08/13/19 08:29 Ondansetron HCl (Zofran) 4 mg Q6H PRN IVP Nausea & Vomiting 08/06/19 08:30 09/05/19 08:29 Polyethylene Glycol (Miralax) 17 gm HSPRN PRN ORAL Constipation 08/06/19 08:30 09/05/19 08:29 Sodium Chloride 1,000 ml @ 50 mls/hr Q20H IV 08/06/19 11:15 09/05/19 11:14 08/12/19 06:47 Vancomycin HCl (Firvanq) 125 mg FOUR TIMES A DAY ORAL 08/08/19 13:00 08/17/19 23:59 08/11/19 20:48 Zolpidem Tartrate (Ambien) 5 mg HSPRN PRN ORAL Insomnia 08/06/19 08:30 08/13/19 08:29 Arnaldo Easton MD Aug 12, 2019 09:35
[2019-08-12] MEDS: Dronabinol 2.5mg Cap ORAL SCH ×3 (09:42→18:00)
[2019-08-12] MEDS: Losartan 25mg tab ORAL SCH (09:42)
[2019-08-12] MEDS: Vancomycin oral 125mg/2.5ml ORAL SCH ×4 (09:42→20:13)
[2019-08-12] MEDS: Heparin 5000 units/ml inj SUBQ SCH ×2 (09:43→20:15)
[2019-08-12 12:00] VITALS: BP 143/57
--- NOTE | 2019-08-12 13:00 | NUR ---
NURSE NOTES: patient has not eaten well. family tried to feed her diet but patient would not open her mouth. RN held noon medications at this time. will continue to monitor patient's condition.
--- NOTE | 2019-08-12 14:30 | NUR ---
NURSE NOTES: patient's family member asked cancel the CT scan. they discussed that taking CT scan is not benefit for the patient at this time. they are reconsidering peg placement and would talk to DR. escoto on wednesday. RN Called and left message to Dr. Wilkinson to get cancel order of CT scan and waiting for returning call from .
[2019-08-12 16:00] VITALS: BP 157/69
--- NOTE | 2019-08-12 16:06 | NUR ---
NURSE NOTES: patient has poor po intake. DM patient. BS was 84@1130. notified dr. medrano and received new order start D5 11/23 ns @50. order noted and carried out.
--- NOTE | 2019-08-12 16:17 | General Progress Note ---
Assessment/Plan Problem List: (1) Diabetes ICD Codes: E11.9 - Type 2 diabetes mellitus without complications SNOMED: 14078543 (2) Malnutrition ICD Codes: E46 - Unspecified protein-calorie malnutrition SNOMED: 57562931 (3) Failure to thrive SNOMED: 54680202 Qualifiers: Qualified Codes: R62.7 - Adult failure to thrive (4) Weakness ICD Codes: R53.1 - Weakness SNOMED: 25285013 (5) UTI (urinary tract infection) ICD Codes: N39.0 - Urinary tract infection, site not specified SNOMED: 44050141 Qualifiers: Qualified Codes: N39.0 - Urinary tract infection, site not specified Status: unchanged Assessment/Plan: pt diet abx neuro eval merman cbc bmp am pending gtube Subjective Constitutional: Reports: weakness Allergies: Coded Allergies: LISINOPRIL (Verified Allergy, Unknown, 08/05/19) All Systems: reviewed and negative except above Subjective calm in bed Objective Last 24 Hour Vital Signs Date Time Temp Pulse Resp B/P (MAP) Pulse Ox O2 Delivery O2 Flow Rate FiO2 08/12/19 12:00 99.0 70 18 143/57 (85) 97 08/12/19 09:42 144/73 08/12/19 09:00 Room Air 08/12/19 08:00 77 18 144/73 (96) 100 08/12/19 04:00 98.5 73 21 150/60 (90) 95 08/12/19 00:00 98.0 65 20 155/72 (99) 95 08/11/19 21:00 Room Air 08/11/19 20:00 98.4 66 20 151/63 (92) 95 Intake and Output 08/11/19 08/12/19 19:00 07:00 Intake Total 670 ml 720 ml Output Total 200 ml 150 ml Balance 470 ml 570 ml Intake Oral 120 ml 120 ml IV Total 550 ml 600 ml Output Urine Total 200 ml 150 ml # Voids 2 1 # Bowel Movements 1 Laboratory Tests 08/11/19 18:05: Ammonia < 10L 08/12/19 05:50: White Blood Count 9.1, Red Blood Count 4.39, Hemoglobin 13.3, Hematocrit 39.9, Mean Corpuscular Volume 91, Mean Corpuscular Hemoglobin 30.4, Mean Corpuscular Hemoglobin Concent 33.5, Red Cell Distribution Width 12.3, Platelet Count 177, Mean Platelet Volume 6.4L, Neutrophils (%) (Auto) 81.4H, Lymphocytes (%) (Auto) 10.0L, Monocytes (%) (Auto) 8.0, Eosinophils (%) (Auto) 0.0, Basophils (%) (Auto ) 0.6, Sodium Level 137, Potassium Level 3.8, Chloride Level 103, Carbon Dioxide Level 24, Anion Gap 10, Blood Urea Nitrogen 15, Creatinine 0.5L, Estimat Glomerular Filtration Rate , Glucose Level 93, Calcium Level 8.8 Height (Feet): 5 Height (Inches): 1.00 Weight (Pounds): 96 General Appearance: lethargic EENT: normal ENT inspection Neck: normal alignment Cardiovascular: normal peripheral pulses, normal rate, regular rhythm Respiratory/Chest: chest wall non-tender, lungs clear, normal breath sounds Abdomen: normal bowel sounds, non tender, soft Extremities: normal inspection Edema: no edema noted Arm (L), no edema noted Arm (R), no edema noted Leg (L), no edema noted Leg (R), no edema noted Pedal (L), no edema noted Pedal (R), no edema noted Generalized Neurologic: motor weakness Skin: normal pigmentation, warm/dry Reynold Saldivar DO Aug 12, 2019 16:17
[2019-08-12] MEDS: D5 1/2NS 1,000 ML IV SCH (16:27)
--- NOTE | 2019-08-12 18:11 | NUR ---
NURSE NOTES: patient refused dinner. the daughter tried to feed her but patient did not take any foods. RN held evening medications. Dr. medrano is aware patient has a poor po intake and family members are reconsidering PEG placement.
--- NOTE | 2019-08-12 19:09 | NUR ---
HAND-OFF: Report given to VIGNESH Brown.
--- NOTE | 2019-08-12 19:35 | NUR ---
NURSE NOTES: Pt received in bed eyes open and family at bedside, pt family reconsidering PEG placement and want to cancel CT scan of the head, voicemail left for Dr. Wilkinson, will continue to monitor.
[2019-08-12 20:00] VITALS: BP 104/54
[2019-08-13] VITALS: BP 125/70
[2019-08-13 04:00] VITALS: BP 142/78
[2019-08-13] MEDS: NovoLOG Insulin Flexpen SUBQ SCH ×4 (06:31→21:08)
[2019-08-13 06:33] LABS: BASOPHILS % (AUTO) 0.3 % (0.0-2.0); EOSINOPHILS % (AUTO) 0.1 % (0.0-3.0); HEMATOCRIT 40.1 % (37.0-47.0); HEMOGLOBIN 13.5 G/DL (12.0-16.0); LYMPHOCYTES % (AUTO) 12.6 % (20.0-45.0); MEAN CORPUSCULAR VOLUME 90 FL (80-99); MONOCYTES % (AUTO) 13.8 % (1.0-10.0); NEUTROPHILS % (AUTO) 73.1 % (45.0-75.0); PLATELET COUNT 176 K/UL (150-450); RED BLOOD COUNT 4.44 M/UL (4.20-5.40); RED CELL DISTRIBUTION WIDTH 12.4 % (11.6-14.8); WHITE BLOOD COUNT 7.6 K/UL (4.8-10.8)
[2019-08-13 07:04] LABS: ANION GAP 4 mmol/L (5-15); BLOOD UREA NITROGEN 11 mg/dL (7-18); CALCIUM 8.5 MG/DL (8.5-10.1); CARBON DIOXIDE 29 MMOL/L (21-32); CHLORIDE 104 MMOL/L (98-107); CREATININE 0.5 MG/DL (0.55-1.30); POTASSIUM 3.4 MMOL/L (3.5-5.1); SODIUM 137 MMOL/L (136-145)
--- NOTE | 2019-08-13 07:20 | NUR ---
HAND-OFF: Report given to VIGNESH Alejo.
--- NOTE | 2019-08-13 07:56 | General Progress Note ---
Assessment/Plan Problem List: (1) Diabetes ICD Codes: E11.9 - Type 2 diabetes mellitus without complications SNOMED: 49638822 (2) Malnutrition ICD Codes: E46 - Unspecified protein-calorie malnutrition SNOMED: 06154357 (3) Failure to thrive SNOMED: 44305402 Qualifiers: Qualified Codes: R62.7 - Adult failure to thrive (4) Weakness ICD Codes: R53.1 - Weakness SNOMED: 82654064 (5) UTI (urinary tract infection) ICD Codes: N39.0 - Urinary tract infection, site not specified SNOMED: 79031823 Qualifiers: Qualified Codes: N39.0 - Urinary tract infection, site not specified Status: unchanged Assessment/Plan: pt diet abx neuro eval merman cbc bmp am pending gtube Subjective Constitutional: Reports: weakness Allergies: Coded Allergies: LISINOPRIL (Verified Allergy, Unknown, 08/05/19) All Systems: reviewed and negative except above Subjective calm sleepy in bed Objective Last 24 Hour Vital Signs Date Time Temp Pulse Resp B/P (MAP) Pulse Ox O2 Delivery O2 Flow Rate FiO2 08/13/19 04:00 97.6 80 19 142/78 (99) 95 08/13/19 00:00 98.5 84 18 125/70 (88) 95 08/12/19 21:00 Room Air 08/12/19 20:00 97.3 74 20 104/54 (71) 95 08/12/19 16:00 99.4 69 18 157/69 (98) 100 08/12/19 12:00 99.0 70 18 143/57 (85) 97 08/12/19 09:42 144/73 08/12/19 09:00 Room Air 08/12/19 08:00 77 18 144/73 (96) 100 Intake and Output 08/12/19 08/13/19 18:59 06:59 Intake Total 600 ml 650 ml Output Total 175 ml 150 ml Balance 425 ml 500 ml Intake Oral 50 ml 50 ml IV Total 550 ml 600 ml Output Urine Total 175 ml 150 ml # Voids 1 # Bowel Movements 1 Laboratory Tests 08/13/19 05:45: White Blood Count 7.6, Red Blood Count 4.44, Hemoglobin 13.5, Hematocrit 40.1, Mean Corpuscular Volume 90, Mean Corpuscular Hemoglobin 30.4, Mean Corpuscular Hemoglobin Concent 33.7, Red Cell Distribution Width 12.4, Platelet Count 176, Mean Platelet Volume 6.3L, Neutrophils (%) (Auto) 73.1, Lymphocytes (%) (Auto) 12.6L, Monocytes (%) (Auto) 13.8H, Eosinophils (%) (Auto) 0.1, Basophils (%) ( Auto) 0.3, Sodium Level 137, Potassium Level 3.4L, Chloride Level 104, Carbon Dioxide Level 29, Anion Gap 4L, Blood Urea Nitrogen 11, Creatinine 0.5L, Estimat Glomerular Filtration Rate , Glucose Level 132H, Calcium Level 8.5 Height (Feet): 5 Height (Inches): 1.00 Weight (Pounds): 96 General Appearance: lethargic EENT: normal ENT inspection Neck: normal alignment Cardiovascular: normal peripheral pulses, normal rate, regular rhythm Respiratory/Chest: chest wall non-tender, lungs clear, normal breath sounds Abdomen: normal bowel sounds, non tender, soft Extremities: normal inspection Edema: no edema noted Arm (L), no edema noted Arm (R), no edema noted Leg (L), no edema noted Leg (R), no edema noted Pedal (L), no edema noted Pedal (R), no edema noted Generalized Neurologic: motor weakness Skin: normal pigmentation, warm/dry Reynold Saldivar DO Aug 13, 2019 07:56
[2019-08-13 08:00] VITALS: BP 126/82
[2019-08-13] MEDS: Dronabinol 2.5mg Cap ORAL SCH ×3 (08:49→16:56)
[2019-08-13] MEDS: Losartan 25mg tab ORAL SCH (08:50)
[2019-08-13] MEDS: Vancomycin oral 125mg/2.5ml ORAL SCH ×4 (08:50→20:47)
[2019-08-13] MEDS: Heparin 5000 units/ml inj SUBQ SCH ×2 (08:52→21:08)
--- NOTE | 2019-08-13 10:33 | Infectious Diseases Prog Note ---
Assessment/Plan Assessment/Plan 84 yo female with PMHx of DM and failure to thrive who was admitted to the hospital on 08/05/19. C. diff Diarrhea Toxin assay Pos 08/07/19 UTI UA (+) Urine Cx 08/05/19 - E,. coli (Sen to cefazolin) DM Failure to thrive Plan - Continue PO Vancomycin #6/10 ( End date 08/17/19) - 08/11/19 SP Ceftriaxone #6 - OK to D/C from an ID perspective - Monitor BMs - Monitor CBC and Temps Thank you for this consult. We will continue to follow the patient with you. Subjective Allergies: Coded Allergies: LISINOPRIL (Verified Allergy, Unknown, 08/05/19) Subjective Afebrile No leukocytosis Objective Vital Signs Last 24 Hour Vital Signs Date Time Temp Pulse Resp B/P (MAP) Pulse Ox O2 Delivery O2 Flow Rate FiO2 08/13/19 09:00 Room Air 08/13/19 08:50 126/82 08/13/19 08:00 98.1 73 18 126/82 (97) 100 08/13/19 04:00 97.6 80 19 142/78 (99) 95 08/13/19 00:00 98.5 84 18 125/70 (88) 95 08/12/19 21:00 Room Air 08/12/19 20:00 97.3 74 20 104/54 (71) 95 08/12/19 16:00 99.4 69 18 157/69 (98) 100 08/12/19 12:00 99.0 70 18 143/57 (85) 97 Height (Feet): 5 Height (Inches): 1.00 Weight (Pounds): 96 Objective GEN: NAD, Satting well HEENT: NCAT, MMM, No scleral icterus CHEST: CTAB, No W/C HEART: RRR, S1, S2, Abd: Soft, NT, ND, +BS, No HSM Laboratory Tests Test 08/13/19 05:45 White Blood Count 7.6 K/UL (4.8-10.8) Red Blood Count 4.44 M/UL (4.20-5.40) Hemoglobin 13.5 G/DL (12.0-16.0) Hematocrit 40.1 % (37.0-47.0) Mean Corpuscular Volume 90 FL (80-99) Mean Corpuscular Hemoglobin 30.4 PG (27.0-31.0) Mean Corpuscular Hemoglobin Concent 33.7 G/DL (32.0-36.0) Red Cell Distribution Width 12.4 % (11.6-14.8) Platelet Count 176 K/UL (150-450) Mean Platelet Volume 6.3 FL (6.5-10.1) L Neutrophils (%) (Auto) 73.1 % (45.0-75.0) Lymphocytes (%) (Auto) 12.6 % (20.0-45.0) L Monocytes (%) (Auto) 13.8 % (1.0-10.0) H Eosinophils (%) (Auto) 0.1 % (0.0-3.0) Basophils (%) (Auto) 0.3 % (0.0-2.0) Sodium Level 137 MMOL/L (136-145) Potassium Level 3.4 MMOL/L (3.5-5.1) L Chloride Level 104 MMOL/L (98-107) Carbon Dioxide Level 29 MMOL/L (21-32) Anion Gap 4 mmol/L (5-15) L Blood Urea Nitrogen 11 mg/dL (7-18) Creatinine 0.5 MG/DL (0.55-1.30) L Estimat Glomerular Filtration Rate mL/min (>60) Glucose Level 132 MG/DL (74-106) H Calcium Level 8.5 MG/DL (8.5-10.1) Current Medications Medications (Trade) Dose Ordered Sig/Patricia Route PRN Reason Start Time Stop Time Status Last Admin Dose Admin Acetaminophen (Tylenol) 650 mg Q4H PRN ORAL fever 08/06/19 08:30 09/05/19 08:29 Clonidine HCl (Catapres Tab) 0.1 mg Q6H PRN ORAL sbp above 160 08/06/19 11:15 09/05/19 11:14 08/10/19 05:18 Dextrose (Dextrose 50%) 25 ml Q30M PRN IV Hypoglycemia 08/06/19 08:30 09/05/19 08:29 Dextrose (Dextrose 50%) 50 ml Q30M PRN IV Hypoglycemia 08/06/19 08:30 09/05/19 08:29 Dextrose/Sodium Chloride 1,000 ml @ 50 mls/hr Q20H IV 08/12/19 16:05 09/11/19 16:04 08/12/19 16:27 Dronabinol (Marinol) 2.5 mg TID ORAL 08/08/19 13:00 09/07/19 12:59 08/13/19 08:49 Heparin Sodium (Porcine) (Heparin 5000 units/ml) 5,000 units EVERY 12 HOURS SUBQ 08/06/19 09:00 09/05/19 08:59 08/13/19 08:52 Insulin Aspart (NovoLOG) BEFORE MEALS AND HS SUBQ 08/06/19 11:30 09/05/19 11:29 08/13/19 06:31 Iopamidol (Isovue-300 100ml) 100 ml NOW PRN INJ Radiology Procedure 08/11/19 17:15 08/13/19 17:04 Losartan Potassium (Cozaar) 25 mg DAILY ORAL 08/06/19 12:00 09/05/19 11:59 08/13/19 08:50 Ondansetron HCl (Zofran) 4 mg Q6H PRN IVP Nausea & Vomiting 08/06/19 08:30 09/05/19 08:29 Polyethylene Glycol (Miralax) 17 gm HSPRN PRN ORAL Constipation 08/06/19 08:30 09/05/19 08:29 Vancomycin HCl (Firvanq) 125 mg FOUR TIMES A DAY ORAL 08/08/19 13:00 08/17/19 23:59 08/13/19 08:50 Freeman Campbell MD Aug 13, 2019 10:33
[2019-08-13 12:00] VITALS: BP 157/85
[2019-08-13] MEDS: D5 1/2NS 1,000 ML IV SCH ×2 (12:05→16:55)
[2019-08-13 16:00] VITALS: BP 157/78
--- NOTE | 2019-08-13 19:30 | NUR ---
NURSE NOTES: Received patient in bed, total care, family at bed side, confused, disoriented, bilateral legs m=noted with contractures, Conway catheter is in place, draining well. IV site is clean dry and intact. Call light is within reach, bed is lowered, locked and alarm is on. Will continue to monitor for comfort and safety.
--- NOTE | 2019-08-13 19:31 | NUR ---
HAND-OFF: Report given to VIGNESH Martínez.
[2019-08-13 20:00] VITALS: BP 171/67
[2019-08-14] VITALS: BP 143/73
[2019-08-14 04:00] VITALS: BP 150/62
[2019-08-14] MEDS: NovoLOG Insulin Flexpen SUBQ SCH ×4 (05:56→21:00)
[2019-08-14 07:10] LABS: BASOPHILS % (AUTO) 0.4 % (0.0-2.0); EOSINOPHILS % (AUTO) 0.4 % (0.0-3.0); HEMATOCRIT 39.1 % (37.0-47.0); HEMOGLOBIN 12.9 G/DL (12.0-16.0); LYMPHOCYTES % (AUTO) 18.6 % (20.0-45.0); MEAN CORPUSCULAR VOLUME 92 FL (80-99); MONOCYTES % (AUTO) 11.7 % (1.0-10.0); PLATELET COUNT 175 K/UL (150-450); RED BLOOD COUNT 4.27 M/UL (4.20-5.40); RED CELL DISTRIBUTION WIDTH 12.5 % (11.6-14.8); WHITE BLOOD COUNT 6.9 K/UL (4.8-10.8)
--- NOTE | 2019-08-14 07:29 | NUR ---
HAND-OFF: Report given to Sapna MEDELLIN.
[2019-08-14 07:37] LABS: ANION GAP 6 mmol/L (5-15); BLOOD UREA NITROGEN 8 mg/dL (7-18); CALCIUM 8.9 MG/DL (8.5-10.1); CARBON DIOXIDE 30 MMOL/L (21-32); CHLORIDE 104 MMOL/L (98-107); CREATININE 0.4 MG/DL (0.55-1.30); POTASSIUM 3.5 MMOL/L (3.5-5.1); SODIUM 140 MMOL/L (136-145)
[2019-08-14 08:00] VITALS: BP 171/70
--- NOTE | 2019-08-14 08:57 | General Progress Note ---
Assessment/Plan Problem List: (1) Diabetes ICD Codes: E11.9 - Type 2 diabetes mellitus without complications SNOMED: 53283526 (2) Malnutrition ICD Codes: E46 - Unspecified protein-calorie malnutrition SNOMED: 06461915 (3) Failure to thrive SNOMED: 90372047 Qualifiers: Qualified Codes: R62.7 - Adult failure to thrive (4) Weakness ICD Codes: R53.1 - Weakness SNOMED: 65473688 (5) UTI (urinary tract infection) ICD Codes: N39.0 - Urinary tract infection, site not specified SNOMED: 82459700 Qualifiers: Qualified Codes: N39.0 - Urinary tract infection, site not specified Status: unchanged Assessment/Plan: pt diet abx neuro eval merman cbc bmp am pending gtube Subjective Constitutional: Reports: weakness Allergies: Coded Allergies: LISINOPRIL (Verified Allergy, Unknown, 08/05/19) All Systems: reviewed and negative except above Subjective calm sleepy in bed Objective Last 24 Hour Vital Signs Date Time Temp Pulse Resp B/P (MAP) Pulse Ox O2 Delivery O2 Flow Rate FiO2 08/14/19 04:00 98.6 62 19 150/62 (91) 08/14/19 00:00 98.9 62 19 143/73 (96) 08/13/19 21:00 Room Air 08/13/19 20:48 171/67 08/13/19 20:00 99.0 67 19 171/67 (101) 08/13/19 16:00 99.2 70 18 157/78 (104) 98 08/13/19 12:00 97.6 66 18 157/85 (109) 99 08/13/19 09:00 Room Air Intake and Output 08/13/19 08/14/19 19:00 07:00 Intake Total 100 ml Output Total 200 ml Balance -100 ml Intake Oral 100 ml Output Urine Total 200 ml Laboratory Tests 08/14/19 05:34: White Blood Count 6.9, Red Blood Count 4.27, Hemoglobin 12.9, Hematocrit 39.1, Mean Corpuscular Volume 92, Mean Corpuscular Hemoglobin 30.1, Mean Corpuscular Hemoglobin Concent 32.9, Red Cell Distribution Width 12.5, Platelet Count 175, Mean Platelet Volume 6.8, Neutrophils (%) (Auto) 69.0, Lymphocytes (%) (Auto) 18.6L, Monocytes (%) (Auto) 11.7H, Eosinophils (%) (Auto) 0.4, Basophils (%) ( Auto) 0.4, Sodium Level 140, Potassium Level 3.5, Chloride Level 104, Carbon Dioxide Level 30, Anion Gap 6, Blood Urea Nitrogen 8, Creatinine 0.4L, Estimat Glomerular Filtration Rate , Glucose Level 127H, Calcium Level 8.9 Height (Feet): 5 Height (Inches): 1.00 Weight (Pounds): 96 General Appearance: lethargic EENT: normal ENT inspection Neck: normal alignment Cardiovascular: normal peripheral pulses, normal rate, regular rhythm Respiratory/Chest: chest wall non-tender, lungs clear, normal breath sounds Abdomen: normal bowel sounds, non tender, soft Extremities: normal inspection Edema: no edema noted Arm (L), no edema noted Arm (R), no edema noted Leg (L), no edema noted Leg (R), no edema noted Pedal (L), no edema noted Pedal (R), no edema noted Generalized Neurologic: motor weakness Skin: normal pigmentation, warm/dry Reynold Saldivar DO Aug 14, 2019 08:57
[2019-08-14] MEDS: Vancomycin oral 125mg/2.5ml ORAL SCH ×4 (09:57→21:44)
[2019-08-14] MEDS: Losartan 25mg tab ORAL SCH (09:58)
[2019-08-14] MEDS: Dronabinol 2.5mg Cap ORAL SCH ×3 (09:58→18:00)
[2019-08-14] MEDS: Heparin 5000 units/ml inj SUBQ SCH ×2 (10:00→21:43)
--- NOTE | 2019-08-14 11:02 | Pulmonology Progress Note ---
Assessment/Plan Problems: (1) Failure to thrive (2) At high risk for aspiration (3) Diabetes (4) Protein-calorie malnutrition, severe (5) Limited mobility in bed (6) Flexion contractures Assessment/Plan very poor appetite aspiration precaution symptomatic treatment sliding scale diabetic diet check electrolytes titrate fio2 to sat of 92%\ discussed with pts daughter. she is out of town, family considering PEG placement dc planning Subjective ROS Limited/Unobtainable: No Constitutional: Reports: no symptoms HEENT: Repors: no symptoms Respiratory: Reports: no symptoms Allergies: Coded Allergies: LISINOPRIL (Verified Allergy, Unknown, 08/05/19) Objective Last 24 Hour Vital Signs Date Time Temp Pulse Resp B/P (MAP) Pulse Ox O2 Delivery O2 Flow Rate FiO2 08/14/19 09:58 171/70 08/14/19 09:58 171/70 08/14/19 08:00 98.1 89 18 171/70 (103) 97 08/14/19 04:00 98.6 62 19 150/62 (91) 08/14/19 00:00 98.9 62 19 143/73 (96) 08/13/19 21:00 Room Air 08/13/19 20:48 171/67 08/13/19 20:00 99.0 67 19 171/67 (101) 08/13/19 16:00 99.2 70 18 157/78 (104) 98 08/13/19 12:00 97.6 66 18 157/85 (109) 99 Intake and Output 08/13/19 08/14/19 18:59 06:59 Intake Total 100 ml Output Total 200 ml Balance -100 ml Intake Oral 100 ml Output Urine Total 200 ml Objective General Appearance: cachectic HEENT: normocephalic, atraumatic Respiratory/Chest: chest wall non-tender, lungs clear Breasts: no masses Cardiovascular: normal peripheral pulses Abdomen: normal bowel sounds, soft, non tender Genitourinary: normal external genitalia Extremities: no clubbing Neurologic/Psychiatric: manager of compliance II-XII grossly normal Lymphatic: no neck adenopathy Laboratory Tests 08/14/19 05:34: White Blood Count 6.9, Red Blood Count 4.27, Hemoglobin 12.9, Hematocrit 39.1, Mean Corpuscular Volume 92, Mean Corpuscular Hemoglobin 30.1, Mean Corpuscular Hemoglobin Concent 32.9, Red Cell Distribution Width 12.5, Platelet Count 175, Mean Platelet Volume 6.8, Neutrophils (%) (Auto) 69.0, Lymphocytes (%) (Auto) 18.6L, Monocytes (%) (Auto) 11.7H, Eosinophils (%) (Auto) 0.4, Basophils (%) ( Auto) 0.4, Sodium Level 140, Potassium Level 3.5, Chloride Level 104, Carbon Dioxide Level 30, Anion Gap 6, Blood Urea Nitrogen 8, Creatinine 0.4L, Estimat Glomerular Filtration Rate , Glucose Level 127H, Calcium Level 8.9 Current Medications Medications (Trade) Dose Ordered Sig/Patricia Route PRN Reason Start Time Stop Time Status Last Admin Dose Admin Acetaminophen (Tylenol) 650 mg Q4H PRN ORAL fever 08/06/19 08:30 09/05/19 08:29 Clonidine HCl (Catapres Tab) 0.1 mg Q6H PRN ORAL sbp above 160 08/06/19 11:15 09/05/19 11:14 08/14/19 09:58 Dextrose (Dextrose 50%) 25 ml Q30M PRN IV Hypoglycemia 08/06/19 08:30 09/05/19 08:29 Dextrose (Dextrose 50%) 50 ml Q30M PRN IV Hypoglycemia 08/06/19 08:30 09/05/19 08:29 Dextrose/Sodium Chloride 1,000 ml @ 50 mls/hr Q20H IV 08/12/19 16:05 09/11/19 16:04 08/13/19 16:55 Dronabinol (Marinol) 2.5 mg TID ORAL 08/08/19 13:00 09/07/19 12:59 08/14/19 09:58 Heparin Sodium (Porcine) (Heparin 5000 units/ml) 5,000 units EVERY 12 HOURS SUBQ 08/06/19 09:00 09/05/19 08:59 08/14/19 10:00 Insulin Aspart (NovoLOG) BEFORE MEALS AND HS SUBQ 08/06/19 11:30 09/05/19 11:29 08/14/19 05:56 Losartan Potassium (Cozaar) 25 mg DAILY ORAL 08/06/19 12:00 09/05/19 11:59 08/14/19 09:58 Ondansetron HCl (Zofran) 4 mg Q6H PRN IVP Nausea & Vomiting 08/06/19 08:30 09/05/19 08:29 Polyethylene Glycol (Miralax) 17 gm HSPRN PRN ORAL Constipation 08/06/19 08:30 09/05/19 08:29 Vancomycin HCl (Firvanq) 125 mg FOUR TIMES A DAY ORAL 08/08/19 13:00 08/17/19 23:59 08/14/19 09:57 Arnaldo Easton MD Aug 14, 2019 11:02
[2019-08-14 12:00] VITALS: BP 108/45
--- NOTE | 2019-08-14 12:32 | GI Progress Note ---
Assessment/Plan Problems: (1) Weakness ICD Codes: R53.1 - Weakness SNOMED: 25501492 (2) Malnutrition ICD Codes: E46 - Unspecified protein-calorie malnutrition SNOMED: 15257028 (3) Failure to thrive SNOMED: 86438474 Qualifiers: Qualified Codes: R62.7 - Adult failure to thrive Status: unchanged Status Narrative Discussed with Dr. Fonseca. Assessment/Plan Family as agreed to PEG. - NPO, [place]. - hold all blood thinners Calorie count reviewed nutritional needs are not met okay for oral gratification Push p.o. Strict aspiration precautions One-to-one feeder Add Marinol Follow labs The patient was seen and examined at bedside and all new and available data was reviewed in the patients chart. I agree with the above findings, impression and plan. (Patient seen earlier today. Signature stamp does not reflect patient encounter time.). - Víctor Fonseca MD Subjective Subjective Limited Objective Last 24 Hour Vital Signs Date Time Temp Pulse Resp B/P (MAP) Pulse Ox O2 Delivery O2 Flow Rate FiO2 08/14/19 09:58 171/70 08/14/19 09:58 171/70 08/14/19 08:00 98.1 89 18 171/70 (103) 97 08/14/19 04:00 98.6 62 19 150/62 (91) 08/14/19 00:00 98.9 62 19 143/73 (96) 08/13/19 21:00 Room Air 08/13/19 20:48 171/67 08/13/19 20:00 99.0 67 19 171/67 (101) 08/13/19 16:00 99.2 70 18 157/78 (104) 98 Intake and Output 08/13/19 08/14/19 18:59 06:59 Intake Total 100 ml Output Total 200 ml Balance -100 ml Intake Oral 100 ml Output Urine Total 200 ml Laboratory Tests Test 08/14/19 05:34 White Blood Count 6.9 K/UL (4.8-10.8) Red Blood Count 4.27 M/UL (4.20-5.40) Hemoglobin 12.9 G/DL (12.0-16.0) Hematocrit 39.1 % (37.0-47.0) Mean Corpuscular Volume 92 FL (80-99) Mean Corpuscular Hemoglobin 30.1 PG (27.0-31.0) Mean Corpuscular Hemoglobin Concent 32.9 G/DL (32.0-36.0) Red Cell Distribution Width 12.5 % (11.6-14.8) Platelet Count 175 K/UL (150-450) Mean Platelet Volume 6.8 FL (6.5-10.1) Neutrophils (%) (Auto) 69.0 % (45.0-75.0) Lymphocytes (%) (Auto) 18.6 % (20.0-45.0) L Monocytes (%) (Auto) 11.7 % (1.0-10.0) H Eosinophils (%) (Auto) 0.4 % (0.0-3.0) Basophils (%) (Auto) 0.4 % (0.0-2.0) Sodium Level 140 MMOL/L (136-145) Potassium Level 3.5 MMOL/L (3.5-5.1) Chloride Level 104 MMOL/L (98-107) Carbon Dioxide Level 30 MMOL/L (21-32) Anion Gap 6 mmol/L (5-15) Blood Urea Nitrogen 8 mg/dL (7-18) Creatinine 0.4 MG/DL (0.55-1.30) L Estimat Glomerular Filtration Rate mL/min (>60) Glucose Level 127 MG/DL (74-106) H Calcium Level 8.9 MG/DL (8.5-10.1) Height (Feet): 5 Height (Inches): 1.00 Weight (Pounds): 96 General Appearance: no apparent distress Cardiovascular: normal rate Respiratory/Chest: normal breath sounds, no respiratory distress Abdominal Exam: normal bowel sounds, non tender, soft Extremities: non-tender Objective Reported by the RN the patient tolerated approximately 25% of her meals Remi Rico NP Aug 14, 2019 12:32
[2019-08-14 16:00] VITALS: BP 122/61
[2019-08-14 20:00] VITALS: BP 114/56
--- NOTE | 2019-08-14 20:00 | NUR ---
NURSE NOTES: Received pt resting in bed. Pt is non verbal, on room air. Daughter is at bedside and she will sign PEG, EGD, and blood transfusion consent form later. Conway intact. IV site intact running with fluid. Bed locked, lowest position, side rails up x 2, call light within reach. Will continue to monitor.
--- NOTE | 2019-08-14 20:08 | NUR ---
HAND-OFF: Report given to VIGNESH Jara.
[2019-08-15] VITALS: BP 101/52
[2019-08-15 04:00] VITALS: BP 106/51
[2019-08-15] MEDS: D5 1/2NS 1,000 ML IV SCH (04:43)
[2019-08-15] MEDS: NovoLOG Insulin Flexpen SUBQ SCH ×4 (05:47→22:44)
[2019-08-15 06:26] LABS: BASOPHILS % (AUTO) 0.6 % (0.0-2.0); EOSINOPHILS % (AUTO) 0.3 % (0.0-3.0); HEMATOCRIT 38.2 % (37.0-47.0); HEMOGLOBIN 12.8 G/DL (12.0-16.0); LYMPHOCYTES % (AUTO) 16.9 % (20.0-45.0); MEAN CORPUSCULAR VOLUME 90 FL (80-99); MONOCYTES % (AUTO) 11.4 % (1.0-10.0); NEUTROPHILS % (AUTO) 70.8 % (45.0-75.0); PLATELET COUNT 182 K/UL (150-450); RED BLOOD COUNT 4.22 M/UL (4.20-5.40); RED CELL DISTRIBUTION WIDTH 12.5 % (11.6-14.8); WHITE BLOOD COUNT 6.8 K/UL (4.8-10.8)
[2019-08-15 06:42] LABS: ANION GAP 7 mmol/L (5-15); BLOOD UREA NITROGEN 9 mg/dL (7-18); CALCIUM 8.4 MG/DL (8.5-10.1); CARBON DIOXIDE 28 MMOL/L (21-32); CHLORIDE 100 MMOL/L (98-107); CREATININE 0.5 MG/DL (0.55-1.30); INR 1.1 (0.9-1.1); POTASSIUM 3.2 MMOL/L (3.5-5.1); SODIUM 135 MMOL/L (136-145)
--- NOTE | 2019-08-15 07:31 | NUR ---
HAND-OFF: Report given to VIGNESH Candelario.
[2019-08-15 08:00] VITALS: BP 147/59
--- NOTE | 2019-08-15 08:19 | NUR ---
NURSE NOTES: Patient is asleep. IVF is infusing. No s/s of discomfort. Patient has espinoza catheter draining to gravity. Espinoza is anchored. Bed is locked, in lowest position, and call light is within reach. Will continue to monitor.
[2019-08-15] MEDS: Vancomycin oral 125mg/2.5ml ORAL SCH ×4 (08:40→20:54)
[2019-08-15] MEDS: Dronabinol 2.5mg Cap ORAL SCH ×3 (08:43→17:13)
[2019-08-15] MEDS: Heparin 5000 units/ml inj SUBQ SCH ×2 (08:43→20:57)
[2019-08-15] MEDS: Losartan 25mg tab ORAL SCH (09:00)
[2019-08-15] MEDS ORDERED: fentaNYL 100 mcg/2 mL IV PRN (10:30)
[2019-08-15] MEDS ORDERED: Atropine Inj 1mg/10ml Syr IV PRN (10:30)
[2019-08-15] MEDS ORDERED: DiphenhydrAMINE 50mg/ml Inj IVP PRN (10:30)
[2019-08-15] MEDS ORDERED: Midazolam 2mg/2ml Inj IVP PRN (10:30)
--- NOTE | 2019-08-15 10:34 | Anethesia Preoperative Eval ---
Anesthesia Pre-op PMH/ROS General Date of Evaluation: Aug 15, 2019 Time of Evaluation: 10:31 Anesthesiologist: paula ASA Score: ASA 4 Mallampati Score Class I : Soft palate, uvula, fauces, pillars visible Class II: Soft palate, uvula, fauces visible Class III: Soft palate, base of uvula visible Class IV: Only hard plate visible Surgeon: tigist Diagnosis: dysphagia, failure to thrive Surgical Procedure: peg placement Anesthesia History: none Social History: smoking - nonsmoker Family History: no anesthesia problems Allergies: Coded Allergies: LISINOPRIL (Verified Allergy, Unknown, 08/05/19) Medications: see eMAR Patient NPO?: Yes Past Medical History Cardiovascular: Reports: HTN Pulmonary: Reports: asthma, other - bronchitis Gastrointestinal/Genitourinary: Reports: other - dysphagia, uti Neurologic/Psychiatric: Reports: other - failure to thrive, muscle weakness Endocrine: Reports: DM Musculoskeletal/Integumentary: Reports: other - bilateral lower extremity contracture Anesthesia Pre-op Phys. Exam Physician Exam Last Vital Signs Date Time Temp Pulse Resp B/P (MAP) Pulse Ox O2 Delivery O2 Flow Rate FiO2 08/15/19 08:15 Room Air 08/15/19 04:00 97.8 62 16 106/51 (69) 98 Anesthesia Pre-op A/P Labs Hematology Test 08/15/19 06:00 White Blood Count 6.8 K/UL (4.8-10.8) Red Blood Count 4.22 M/UL (4.20-5.40) Hemoglobin 12.8 G/DL (12.0-16.0) Hematocrit 38.2 % (37.0-47.0) Mean Corpuscular Volume 90 FL (80-99) Mean Corpuscular Hemoglobin 30.2 PG (27.0-31.0) Mean Corpuscular Hemoglobin Concent 33.5 G/DL (32.0-36.0) Red Cell Distribution Width 12.5 % (11.6-14.8) Platelet Count 182 K/UL (150-450) Mean Platelet Volume 7.6 FL (6.5-10.1) Neutrophils (%) (Auto) 70.8 % (45.0-75.0) Lymphocytes (%) (Auto) 16.9 % (20.0-45.0) L Monocytes (%) (Auto) 11.4 % (1.0-10.0) H Eosinophils (%) (Auto) 0.3 % (0.0-3.0) Basophils (%) (Auto) 0.6 % (0.0-2.0) Coagulation Test 08/15/19 06:00 Prothrombin Time 11.4 SEC (9.30-11.50) Prothromb Time International Ratio 1.1 (0.9-1.1) Activated Partial Thromboplast Time 33 SEC (23-33) Chemistry Test 08/15/19 06:00 Sodium Level 135 MMOL/L (136-145) L Potassium Level 3.2 MMOL/L (3.5-5.1) L Chloride Level 100 MMOL/L (98-107) Carbon Dioxide Level 28 MMOL/L (21-32) Anion Gap 7 mmol/L (5-15) Blood Urea Nitrogen 9 mg/dL (7-18) Creatinine 0.5 MG/DL (0.55-1.30) L Estimat Glomerular Filtration Rate mL/min (>60) Glucose Level 124 MG/DL (74-106) H Calcium Level 8.4 MG/DL (8.5-10.1) L Risk Assessment & Plan Assessment: asa4 Plan: Jojo Mckeon MD Aug 15, 2019 10:34
--- NOTE | 2019-08-15 11:27 | Pulmonology Progress Note ---
Assessment/Plan Problems: (1) Failure to thrive (2) At high risk for aspiration (3) Diabetes (4) Protein-calorie malnutrition, severe (5) Limited mobility in bed (6) Flexion contractures Assessment/Plan very poor appetite aspiration precaution symptomatic treatment sliding scale diabetic diet check electrolytes titrate fio2 to sat of 92%\ discussed with pts daughter. she is out of town, family considering PEG placement awaiting for consent for PEG Subjective ROS Limited/Unobtainable: No Allergies: Coded Allergies: LISINOPRIL (Verified Allergy, Unknown, 08/05/19) Objective Last 24 Hour Vital Signs Date Time Temp Pulse Resp B/P (MAP) Pulse Ox O2 Delivery O2 Flow Rate FiO2 08/15/19 08:15 Room Air 08/15/19 08:00 98.0 58 18 147/59 (88) 95 08/15/19 04:00 97.8 62 16 106/51 (69) 98 08/15/19 00:00 98.2 66 16 101/52 (68) 99 08/14/19 21:00 Room Air 08/14/19 20:00 98.0 65 16 114/56 (75) 100 08/14/19 16:00 97.9 78 20 122/61 (81) 99 08/14/19 12:00 97.9 67 18 108/45 (66) 100 Intake and Output 08/14/19 08/15/19 19:00 07:00 Intake Total 1000 ml 450 ml Output Total 800 ml 550 ml Balance 200 ml -100 ml IV Total 600 ml 450 ml Other 400 ml Output Urine Total 800 ml 550 ml Objective General Appearance: cachectic HEENT: normocephalic, atraumatic Respiratory/Chest: chest wall non-tender, lungs clear Breasts: no masses Cardiovascular: normal peripheral pulses Abdomen: normal bowel sounds, soft, non tender Genitourinary: normal external genitalia Extremities: no clubbing 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 Lymphatic: no neck adenopathy Laboratory Tests 08/15/19 06:00: White Blood Count 6.8, Red Blood Count 4.22, Hemoglobin 12.8, Hematocrit 38.2, Mean Corpuscular Volume 90, Mean Corpuscular Hemoglobin 30.2, Mean Corpuscular Hemoglobin Concent 33.5, Red Cell Distribution Width 12.5, Platelet Count 182, Mean Platelet Volume 7.6, Neutrophils (%) (Auto) 70.8, Lymphocytes (%) (Auto) 16.9L, Monocytes (%) (Auto) 11.4H, Eosinophils (%) (Auto) 0.3, Basophils (%) ( Auto) 0.6, Prothrombin Time 11.4, Prothromb Time International Ratio 1.1, Activated Partial Thromboplast Time 33, Sodium Level 135L, Potassium Level 3.2L , Chloride Level 100, Carbon Dioxide Level 28, Anion Gap 7, Blood Urea Nitrogen 9, Creatinine 0.5L, Estimat Glomerular Filtration Rate , Glucose Level 124H, Calcium Level 8.4L Current Medications Medications (Trade) Dose Ordered Sig/Patricia Route PRN Reason Start Time Stop Time Status Last Admin Dose Admin Acetaminophen (Tylenol) 650 mg Q4H PRN ORAL fever 08/06/19 08:30 09/05/19 08:29 Acetaminophen (Tylenol) 650 mg Q4H PRN ORAL Mild Pain (Pain Scale 1-3) 08/15/19 10:30 08/15/19 18:00 Al Hydroxide/Mg Hydroxide (Mylanta) 15 ml Q1H PRN ORAL gi upset 08/15/19 10:30 08/15/19 18:00 Atropine Sulfate (Atropine) 0.5 mg Q5M PRN IV bpm less than 45 08/15/19 10:30 08/15/19 18:00 Clonidine HCl (Catapres Tab) 0.1 mg Q6H PRN ORAL sbp above 160 08/06/19 11:15 09/05/19 11:14 08/14/19 09:58 Dextrose (Dextrose 50%) 25 ml Q30M PRN IV Hypoglycemia 08/06/19 08:30 09/05/19 08:29 Dextrose (Dextrose 50%) 50 ml Q30M PRN IV Hypoglycemia 08/06/19 08:30 09/05/19 08:29 Dextrose/Sodium Chloride 1,000 ml @ 50 mls/hr Q20H IV 08/12/19 16:05 09/11/19 16:04 08/15/19 04:43 Diphenhydramine HCl (Benadryl) 25 mg Q15M PRN IVP Itching 08/15/19 10:30 08/15/19 18:00 Dronabinol (Marinol) 2.5 mg TID ORAL 08/08/19 13:00 09/07/19 12:59 08/14/19 18:00 Fentanyl Citrate (Sublimaze 100 mcg/2 mL) 25 mcg Q10M PRN IV Moderate Pain (Pain Scale 4-6) 08/15/19 10:30 08/15/19 18:00 Heparin Sodium (Porcine) (Heparin 5000 units/ml) 5,000 units EVERY 12 HOURS SUBQ 08/06/19 09:00 09/05/19 08:59 08/14/19 21:43 Hydralazine HCl (Apresoline) 5 mg Q30M PRN IV SBP>160 OR___/DBP>90 OR___ 08/15/19 10:30 08/15/19 18:00 Insulin Aspart (NovoLOG) BEFORE MEALS AND HS SUBQ 08/06/19 11:30 09/05/19 11:29 08/14/19 13:59 Losartan Potassium (Cozaar) 25 mg DAILY ORAL 08/06/19 12:00 09/05/19 11:59 08/14/19 09:58 Midazolam HCl (Versed 2mg/2ml vial) 1 mg Q15M PRN IVP For Anxiety 08/15/19 10:30 08/15/19 18:00 Ondansetron HCl (Zofran) 4 mg Q1H PRN IVP Nausea & Vomiting 08/15/19 10:30 08/15/19 18:00 Ondansetron HCl (Zofran) 4 mg Q6H PRN IVP Nausea & Vomiting 08/06/19 08:30 09/05/19 08:29 Polyethylene Glycol (Miralax) 17 gm HSPRN PRN ORAL Constipation 08/06/19 08:30 09/05/19 08:29 Potassium Chloride 100 ml @ 100 mls/hr Q1HR IVPB 08/15/19 12:00 08/15/19 13:59 Sodium Chloride 1,000 ml @ 10 mls/hr Q24H IVLG 08/15/19 10:30 08/15/19 18:00 Vancomycin HCl (Firvanq) 125 mg FOUR TIMES A DAY ORAL 08/08/19 13:00 08/17/19 23:59 08/15/19 08:40 Arnaldo Easton MD Aug 15, 2019 11:27
[2019-08-15 12:00] VITALS: BP 110/63
--- NOTE | 2019-08-15 13:07 | GI Progress Note ---
Assessment/Plan Problems: (1) Weakness ICD Codes: R53.1 - Weakness SNOMED: 14129795 (2) Malnutrition ICD Codes: E46 - Unspecified protein-calorie malnutrition SNOMED: 19995026 (3) Failure to thrive SNOMED: 03525875 Qualifiers: Qualified Codes: R62.7 - Adult failure to thrive Status: unchanged Status Narrative Discussed with Dr. Fonseca. Assessment/Plan Daughter awaiting decision of other family members for PEG we will tentatively place patient on schedule for tomorrow. - NPO, [place]. - hold all blood thinners Calorie count reviewed nutritional needs are not met okay for oral gratification Push p.o. Strict aspiration precautions One-to-one feeder cont Marinol Follow labs The patient was seen and examined at bedside and all new and available data was reviewed in the patients chart. I agree with the above findings, impression and plan. (Patient seen earlier today. Signature stamp does not reflect patient encounter time.). - Víctor Fonseca MD Subjective Subjective Limited Objective Last 24 Hour Vital Signs Date Time Temp Pulse Resp B/P (MAP) Pulse Ox O2 Delivery O2 Flow Rate FiO2 08/15/19 08:15 Room Air 08/15/19 08:00 98.0 58 18 147/59 (88) 95 08/15/19 04:00 97.8 62 16 106/51 (69) 98 08/15/19 00:00 98.2 66 16 101/52 (68) 99 08/14/19 21:00 Room Air 08/14/19 20:00 98.0 65 16 114/56 (75) 100 08/14/19 16:00 97.9 78 20 122/61 (81) 99 Intake and Output 08/14/19 08/15/19 19:00 07:00 Intake Total 1000 ml 450 ml Output Total 800 ml 550 ml Balance 200 ml -100 ml IV Total 600 ml 450 ml Other 400 ml Output Urine Total 800 ml 550 ml Laboratory Tests Test 08/15/19 06:00 White Blood Count 6.8 K/UL (4.8-10.8) Red Blood Count 4.22 M/UL (4.20-5.40) Hemoglobin 12.8 G/DL (12.0-16.0) Hematocrit 38.2 % (37.0-47.0) Mean Corpuscular Volume 90 FL (80-99) Mean Corpuscular Hemoglobin 30.2 PG (27.0-31.0) Mean Corpuscular Hemoglobin Concent 33.5 G/DL (32.0-36.0) Red Cell Distribution Width 12.5 % (11.6-14.8) Platelet Count 182 K/UL (150-450) Mean Platelet Volume 7.6 FL (6.5-10.1) Neutrophils (%) (Auto) 70.8 % (45.0-75.0) Lymphocytes (%) (Auto) 16.9 % (20.0-45.0) L Monocytes (%) (Auto) 11.4 % (1.0-10.0) H Eosinophils (%) (Auto) 0.3 % (0.0-3.0) Basophils (%) (Auto) 0.6 % (0.0-2.0) Prothrombin Time 11.4 SEC (9.30-11.50) Prothromb Time International Ratio 1.1 (0.9-1.1) Activated Partial Thromboplast Time 33 SEC (23-33) Sodium Level 135 MMOL/L (136-145) L Potassium Level 3.2 MMOL/L (3.5-5.1) L Chloride Level 100 MMOL/L (98-107) Carbon Dioxide Level 28 MMOL/L (21-32) Anion Gap 7 mmol/L (5-15) Blood Urea Nitrogen 9 mg/dL (7-18) Creatinine 0.5 MG/DL (0.55-1.30) L Estimat Glomerular Filtration Rate mL/min (>60) Glucose Level 124 MG/DL (74-106) H Calcium Level 8.4 MG/DL (8.5-10.1) L Height (Feet): 5 Height (Inches): 1.00 Weight (Pounds): 96 General Appearance: no apparent distress, thin Cardiovascular: normal rate Respiratory/Chest: normal breath sounds, no respiratory distress Abdominal Exam: normal bowel sounds, non tender, soft Extremities: non-tender Objective Reported by the RN the patient tolerated approximately 25% of her meals Remi Rico GENERAL [employer]ARD SUPERVISOR Aug 15, 2019 13:07
--- NOTE | 2019-08-15 13:10 | General Progress Note ---
Assessment/Plan Problem List: (1) Diabetes ICD Codes: E11.9 - Type 2 diabetes mellitus without complications SNOMED: 59376383 (2) Malnutrition ICD Codes: E46 - Unspecified protein-calorie malnutrition SNOMED: 44996123 (3) Failure to thrive SNOMED: 38828608 Qualifiers: Qualified Codes: R62.7 - Adult failure to thrive (4) Weakness ICD Codes: R53.1 - Weakness SNOMED: 40621134 (5) UTI (urinary tract infection) ICD Codes: N39.0 - Urinary tract infection, site not specified SNOMED: 60994062 Qualifiers: Qualified Codes: N39.0 - Urinary tract infection, site not specified Status: stable, progressing, unchanged Assessment/Plan: pt diet abx neuro eval merman cbc bmp am pending gtube Subjective Constitutional: Reports: weakness Allergies: Coded Allergies: LISINOPRIL (Verified Allergy, Unknown, 08/05/19) All Systems: reviewed and negative except above Subjective calm sleepy in bed Objective Last 24 Hour Vital Signs Date Time Temp Pulse Resp B/P (MAP) Pulse Ox O2 Delivery O2 Flow Rate FiO2 08/15/19 08:15 Room Air 08/15/19 08:00 98.0 58 18 147/59 (88) 95 08/15/19 04:00 97.8 62 16 106/51 (69) 98 08/15/19 00:00 98.2 66 16 101/52 (68) 99 08/14/19 21:00 Room Air 08/14/19 20:00 98.0 65 16 114/56 (75) 100 08/14/19 16:00 97.9 78 20 122/61 (81) 99 Intake and Output 08/14/19 08/15/19 19:00 07:00 Intake Total 1000 ml 450 ml Output Total 800 ml 550 ml Balance 200 ml -100 ml IV Total 600 ml 450 ml Other 400 ml Output Urine Total 800 ml 550 ml Laboratory Tests 08/15/19 06:00: White Blood Count 6.8, Red Blood Count 4.22, Hemoglobin 12.8, Hematocrit 38.2, Mean Corpuscular Volume 90, Mean Corpuscular Hemoglobin 30.2, Mean Corpuscular Hemoglobin Concent 33.5, Red Cell Distribution Width 12.5, Platelet Count 182, Mean Platelet Volume 7.6, Neutrophils (%) (Auto) 70.8, Lymphocytes (%) (Auto) 16.9L, Monocytes (%) (Auto) 11.4H, Eosinophils (%) (Auto) 0.3, Basophils (%) ( Auto) 0.6, Prothrombin Time 11.4, Prothromb Time International Ratio 1.1, Activated Partial Thromboplast Time 33, Sodium Level 135L, Potassium Level 3.2L , Chloride Level 100, Carbon Dioxide Level 28, Anion Gap 7, Blood Urea Nitrogen 9, Creatinine 0.5L, Estimat Glomerular Filtration Rate , Glucose Level 124H, Calcium Level 8.4L Height (Feet): 5 Height (Inches): 1.00 Weight (Pounds): 96 General Appearance: lethargic EENT: normal ENT inspection Neck: normal alignment Cardiovascular: normal peripheral pulses, normal rate, regular rhythm Respiratory/Chest: chest wall non-tender, lungs clear, normal breath sounds Abdomen: normal bowel sounds, non tender, soft Extremities: normal inspection Edema: no edema noted Arm (L), no edema noted Arm (R), no edema noted Leg (L), no edema noted Leg (R), no edema noted Pedal (L), no edema noted Pedal (R), no edema noted Generalized Neurologic: motor weakness Skin: normal pigmentation, warm/dry Reynold Saldivar DO Aug 15, 2019 13:10
--- NOTE | 2019-08-15 14:35 | NUR ---
RD ASSESSMENT & RECOMMENDATIONS SEE CARE ACTIVITY FOR COMPLETE ASSESSMENT DAILY ESTIMATED NEEDS: Needs based on FTT, 46kg 30-35 kcals/kg 1060-2622 total kcals 1-1.5 g protein/kg 46-69 g total protein 25-30 mL/kg 6379-4145 total fluid mLs NUTRITION DIAGNOSIS: Increased kcal and pro needs r/t wound healing as evidenced by pt w/ coccyx pressure ulcer, w/ generalized moderate to severe wasting, w/ poor PO intake, now pending PEG placement. CURRENT DIET: Regular liquify puree w/ NTL PO DIET RECOMMENDATIONS: ORAL GRAT -> Liberalized Regular diet / texture per BILLET DRILLER ENTERAL NUTRITION RECOMMENDATIONS: Glucerna 1.2 @ 50ml/hr x 24 hrs to provide 1200ml, 1440kcal, 72g prot, 966ml free water - Post PEG placement, initiate Glucerna 1.2 @ 20ml/hr x 6 hrs - Advance as tolerated 10ml/hr q4-6 hrs to goal rate. - Flush per MD, HOB over 30 degrees ADDITIONAL RECOMMENDATIONS: 1) Obtain calibrated bed scale wts, weekly wt monitoring 2) W/ TF, monitor lytes daily, replete as needed -> HIGH RISK FOR REFEEDING SYNDROME 3) Add probiotics: Stool C-diff + . . .
--- NOTE | 2019-08-15 14:58 | NUR ---
NURSE NOTES: Patient's daughter is at bedside. Daughter reports she does not want Head CT. Also daughter reports that she has too consult with family regarding decision for PEG.
[2019-08-15 16:00] VITALS: BP 115/69
--- NOTE | 2019-08-15 19:41 | NUR ---
NURSE NOTES: RECEIVED PT FROM VIGNESH PENA. PT IS ASLEEP, AAO X1, ON ROOM AIR, NO ACUTE DISTRESS NOTED. DAUGHTER AT BEDSIDE. IV ON L HAND 24G IS INTACT AND PATENT. SACRAL WOUND DRESSING IS INTACT AND DRY. FOLLOWED UP ON EGD AND POSSIBLE PEG PLACEMENT DECISION, DAUGHTER STATED THAT SHE IS STILL WAITING TO CONSULT WITH FAMILY MEMBERS. BED IS LOCKED AT THE LOWEST POSITION, BED ALARMS ACTIVE, SIDE RAILS UP X2, AND CALL LIGHT IS WITHIN REACH. WILL CONTINUE TO MONITOR AND CONTINUE THE PLAN OF CARE.
--- NOTE | 2019-08-15 19:52 | NUR ---
HAND-OFF: Report given to VIGNESH Hidalgo.
[2019-08-15 20:00] VITALS: BP 139/61
[2019-08-16] VITALS (11 sets, daily range): BP systolic 99–163; BP diastolic 58–86
[2019-08-16] MEDS: D5 1/2NS 1,000 ML IV SCH ×2 (01:09→22:16)
--- NOTE | 2019-08-16 03:58 | NUR ---
NURSE NOTES: PT IS ASLEEP. VSS. WILL CONTINUE TO MONITOR.
[2019-08-16 06:07] LABS: EOSINOPHILS % (AUTO) 0.5 % (0.0-3.0); HEMATOCRIT 33.9 % (37.0-47.0); HEMOGLOBIN 11.3 G/DL (12.0-16.0); LYMPHOCYTES % (AUTO) 17.8 % (20.0-45.0); MEAN CORPUSCULAR VOLUME 91 FL (80-99); MONOCYTES % (AUTO) 11.1 % (1.0-10.0); NEUTROPHILS % (AUTO) 69.6 % (45.0-75.0); PLATELET COUNT 174 K/UL (150-450); RED BLOOD COUNT 3.71 M/UL (4.20-5.40); RED CELL DISTRIBUTION WIDTH 12.3 % (11.6-14.8); WHITE BLOOD COUNT 6.1 K/UL (4.8-10.8)
[2019-08-16 06:11] LABS: ANION GAP 5 mmol/L (5-15); BLOOD UREA NITROGEN 7 mg/dL (7-18); CALCIUM 8.1 MG/DL (8.5-10.1); CARBON DIOXIDE 28 MMOL/L (21-32); CHLORIDE 102 MMOL/L (98-107); CREATININE 0.4 MG/DL (0.55-1.30); POTASSIUM 3.5 MMOL/L (3.5-5.1); SODIUM 135 MMOL/L (136-145)
[2019-08-16 06:23] LABS: INR 1.1 (0.9-1.1)
[2019-08-16] MEDS: NovoLOG Insulin Flexpen SUBQ SCH ×4 (06:30→22:12)
--- NOTE | 2019-08-16 07:43 | NUR ---
HAND-OFF: Report given to VIGNESH Tony. Pt is in stable condition.
--- NOTE | 2019-08-16 08:34 | NUR ---
NURSE NOTES: Received report from Gwen, RN. Pt in bed, nonverbal, tracks with eyes, restless, moans, withdraws from pain, RN will reviewed medications and administer pain medication as ordered, pt position turned, Conway secured to leg, no apparent respiratory distress noted, bed in lowest position, call light within reach.
[2019-08-16] MEDS: Dronabinol 2.5mg Cap ORAL SCH ×3 (09:00→17:08)
[2019-08-16] MEDS: Losartan 25mg tab ORAL SCH (09:00)
[2019-08-16] MEDS: Vancomycin oral 125mg/2.5ml ORAL SCH ×4 (09:00→22:09)
[2019-08-16] MEDS: Heparin 5000 units/ml inj SUBQ SCH ×2 (09:00→22:11)
--- NOTE | 2019-08-16 09:01 | NUR ---
NURSE NOTES: Left message for pt's daughter, Natalia, regarding consent for PEG placement. Spoke to Wilbert in GI to notify Ronnie that a message with family
--- NOTE | 2019-08-16 09:22 | General Progress Note ---
Assessment/Plan Problem List: (1) Diabetes ICD Codes: E11.9 - Type 2 diabetes mellitus without complications SNOMED: 05569555 (2) Malnutrition ICD Codes: E46 - Unspecified protein-calorie malnutrition SNOMED: 11502692 (3) Failure to thrive SNOMED: 16486530 Qualifiers: Qualified Codes: R62.7 - Adult failure to thrive (4) Weakness ICD Codes: R53.1 - Weakness SNOMED: 92769480 (5) UTI (urinary tract infection) ICD Codes: N39.0 - Urinary tract infection, site not specified SNOMED: 41690576 Qualifiers: Qualified Codes: N39.0 - Urinary tract infection, site not specified Status: stable, progressing, unchanged Assessment/Plan: pt diet abx neuro eval merman cbc bmp am pending gtube Subjective Constitutional: Reports: weakness Allergies: Coded Allergies: LISINOPRIL (Verified Allergy, Unknown, 08/05/19) All Systems: reviewed and negative except above Subjective calm sleepy in bed Objective Last 24 Hour Vital Signs Date Time Temp Pulse Resp B/P (MAP) Pulse Ox O2 Delivery O2 Flow Rate FiO2 08/16/19 08:24 Room Air 08/16/19 08:00 98.1 64 18 125/76 (92) 99 08/16/19 04:00 99.2 63 20 138/61 (86) 95 08/16/19 00:00 98.6 60 18 122/77 (92) 97 08/15/19 21:00 Room Air 08/15/19 20:00 98.4 61 18 139/61 (87) 96 08/15/19 16:00 98.9 58 18 115/69 (84) 96 08/15/19 12:00 98.0 56 18 110/63 (79) 96 Intake and Output 08/15/19 08/16/19 19:00 07:00 Intake Total 600 ml 500 ml Output Total 800 ml 400 ml Balance -200 ml 100 ml IV Total 500 ml Other 600 ml Output Urine Total 800 ml 400 ml # Voids 1 # Bowel Movements 2 Laboratory Tests 08/16/19 05:25: White Blood Count 6.1, Red Blood Count 3.71L, Hemoglobin 11.3L, Hematocrit 33.9L , Mean Corpuscular Volume 91, Mean Corpuscular Hemoglobin 30.6, Mean Corpuscular Hemoglobin Concent 33.5, Red Cell Distribution Width 12.3, Platelet Count 174, Mean Platelet Volume 6.4L, Neutrophils (%) (Auto) 69.6, Lymphocytes ( %) (Auto) 17.8L, Monocytes (%) (Auto) 11.1H, Eosinophils (%) (Auto) 0.5, Basophils (%) (Auto) 1.0, Prothrombin Time 11.9H, Prothromb Time International Ratio 1.1, Activated Partial Thromboplast Time 32, Sodium Level 135L, Potassium Level 3.5, Chloride Level 102, Carbon Dioxide Level 28, Anion Gap 5, Blood Urea Nitrogen 7, Creatinine 0.4L, Estimat Glomerular Filtration Rate , Glucose Level 105, Calcium Level 8.1L Height (Feet): 5 Height (Inches): 1.00 Weight (Pounds): 95 General Appearance: lethargic EENT: normal ENT inspection Neck: normal alignment Cardiovascular: normal peripheral pulses, normal rate, regular rhythm Respiratory/Chest: chest wall non-tender, lungs clear, normal breath sounds Abdomen: normal bowel sounds, non tender, soft Extremities: normal inspection Edema: no edema noted Arm (L), no edema noted Arm (R), no edema noted Leg (L), no edema noted Leg (R), no edema noted Pedal (L), no edema noted Pedal (R), no edema noted Generalized Neurologic: motor weakness Skin: normal pigmentation, warm/dry Reynold Saldivar DO Aug 16, 2019 09:22
[2019-08-16] MEDS ORDERED: NS 500ML IVPB ONE (11:45)
--- NOTE | 2019-08-16 11:49 | Pre-Procedure Note/Attestation ---
Pre-Procedure Note/Attestation Complete Prior to Procedure Planned Procedure: not applicable Procedure Narrative: egd/peg Indications for Procedure Pre-Operative Diagnosis: dysphagia Attestation I attest that I discussed the nature of the procedure; its benefits; risks and complications; and alternatives (and the risks and benefits of such alternatives ), prior to the procedure, with the patient (or the patient's legal insurance verification representative). I attest that, if there was a reasonable possibility of needing a blood transfusion, the patient (or the patient's legal insurance verification representative) was given the [facility] standardized written summary, pursuant to the [employer] Blood Safety Act ([place] Health and Safety Code # 1645, as amended). I attest that I re-evaluated the patient just prior to the surgery and that there has been no change in the patient's H&P, except as documented below: Víctor Fonseca MD Aug 16, 2019 11:49
--- NOTE | 2019-08-16 11:50 | General Progress Note ---
Assessment/Plan Problem List: (1) Protein-calorie malnutrition, severe ICD Codes: E43 - Unspecified severe protein-calorie malnutrition SNOMED: 505445213, 201042423, 810363877 (2) Weakness ICD Codes: R53.1 - Weakness SNOMED: 12953127 (3) Malnutrition ICD Codes: E46 - Unspecified protein-calorie malnutrition SNOMED: 37557748 (4) Failure to thrive SNOMED: 96998497 Qualifiers: Qualified Codes: R62.7 - Adult failure to thrive (5) Diabetes ICD Codes: E11.9 - Type 2 diabetes mellitus without complications SNOMED: 89756352 (6) UTI (urinary tract infection) ICD Codes: N39.0 - Urinary tract infection, site not specified SNOMED: 11493368 Qualifiers: Qualified Codes: N39.0 - Urinary tract infection, site not specified Status: stable, progressing, unchanged Assessment/Plan: plan PEG placement for today Subjective ROS Limited/Unobtainable: No Allergies: Coded Allergies: LISINOPRIL (Verified Allergy, Unknown, 08/05/19) Objective Last 24 Hour Vital Signs Date Time Temp Pulse Resp B/P (MAP) Pulse Ox O2 Delivery O2 Flow Rate FiO2 08/16/19 09:00 125/76 08/16/19 08:24 Room Air 08/16/19 08:00 98.1 64 18 125/76 (92) 99 08/16/19 04:00 99.2 63 20 138/61 (86) 95 08/16/19 00:00 98.6 60 18 122/77 (92) 97 08/15/19 21:00 Room Air 08/15/19 20:00 98.4 61 18 139/61 (87) 96 08/15/19 16:00 98.9 58 18 115/69 (84) 96 08/15/19 12:00 98.0 56 18 110/63 (79) 96 Intake and Output 08/15/19 08/16/19 19:00 07:00 Intake Total 600 ml 500 ml Output Total 800 ml 400 ml Balance -200 ml 100 ml IV Total 500 ml Other 600 ml Output Urine Total 800 ml 400 ml # Voids 1 # Bowel Movements 2 Laboratory Tests 08/16/19 05:25: White Blood Count 6.1, Red Blood Count 3.71L, Hemoglobin 11.3L, Hematocrit 33.9L , Mean Corpuscular Volume 91, Mean Corpuscular Hemoglobin 30.6, Mean Corpuscular Hemoglobin Concent 33.5, Red Cell Distribution Width 12.3, Platelet Count 174, Mean Platelet Volume 6.4L, Neutrophils (%) (Auto) 69.6, Lymphocytes ( %) (Auto) 17.8L, Monocytes (%) (Auto) 11.1H, Eosinophils (%) (Auto) 0.5, Basophils (%) (Auto) 1.0, Prothrombin Time 11.9H, Prothromb Time International Ratio 1.1, Activated Partial Thromboplast Time 32, Sodium Level 135L, Potassium Level 3.5, Chloride Level 102, Carbon Dioxide Level 28, Anion Gap 5, Blood Urea Nitrogen 7, Creatinine 0.4L, Estimat Glomerular Filtration Rate , Glucose Level 105, Calcium Level 8.1L Height (Feet): 5 Height (Inches): 1.00 Weight (Pounds): 95 General Appearance: lethargic EENT: normal ENT inspection Neck: supple Cardiovascular: normal rate Respiratory/Chest: decreased breath sounds Abdomen: normal bowel sounds, non tender, soft Extremities: non-tender Víctor Fonseca MD Aug 16, 2019 11:50
[2019-08-16] MEDS ORDERED: cefOXitin 1gm Inj ONE (11:52)
--- NOTE | 2019-08-16 11:59 | Pulmonology Progress Note ---
Assessment/Plan Problems: (1) Failure to thrive (2) At high risk for aspiration (3) Diabetes (4) Protein-calorie malnutrition, severe (5) Limited mobility in bed (6) Flexion contractures Assessment/Plan very poor appetite aspiration precaution symptomatic treatment sliding scale diabetic diet check electrolytes titrate fio2 to sat of 92%\ scheduled for PEG Subjective ROS Limited/Unobtainable: No Constitutional: Reports: no symptoms HEENT: Repors: no symptoms Allergies: Coded Allergies: LISINOPRIL (Verified Allergy, Unknown, 08/05/19) Objective Last 24 Hour Vital Signs Date Time Temp Pulse Resp B/P (MAP) Pulse Ox O2 Delivery O2 Flow Rate FiO2 08/16/19 09:00 125/76 08/16/19 08:24 Room Air 08/16/19 08:00 98.1 64 18 125/76 (92) 99 08/16/19 04:00 99.2 63 20 138/61 (86) 95 08/16/19 00:00 98.6 60 18 122/77 (92) 97 08/15/19 21:00 Room Air 08/15/19 20:00 98.4 61 18 139/61 (87) 96 08/15/19 16:00 98.9 58 18 115/69 (84) 96 08/15/19 12:00 98.0 56 18 110/63 (79) 96 Intake and Output 08/15/19 08/16/19 19:00 07:00 Intake Total 600 ml 500 ml Output Total 800 ml 400 ml Balance -200 ml 100 ml IV Total 500 ml Other 600 ml Output Urine Total 800 ml 400 ml # Voids 1 # Bowel Movements 2 Objective General Appearance: cachectic HEENT: normocephalic, atraumatic Respiratory/Chest: chest wall non-tender, lungs clear Breasts: no masses Cardiovascular: normal peripheral pulses Abdomen: normal bowel sounds, soft, non tender Genitourinary: normal external genitalia Extremities: no clubbing 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 Lymphatic: no neck adenopathy Laboratory Tests 08/16/19 05:25: White Blood Count 6.1, Red Blood Count 3.71L, Hemoglobin 11.3L, Hematocrit 33.9L , Mean Corpuscular Volume 91, Mean Corpuscular Hemoglobin 30.6, Mean Corpuscular Hemoglobin Concent 33.5, Red Cell Distribution Width 12.3, Platelet Count 174, Mean Platelet Volume 6.4L, Neutrophils (%) (Auto) 69.6, Lymphocytes ( %) (Auto) 17.8L, Monocytes (%) (Auto) 11.1H, Eosinophils (%) (Auto) 0.5, Basophils (%) (Auto) 1.0, Prothrombin Time 11.9H, Prothromb Time International Ratio 1.1, Activated Partial Thromboplast Time 32, Sodium Level 135L, Potassium Level 3.5, Chloride Level 102, Carbon Dioxide Level 28, Anion Gap 5, Blood Urea Nitrogen 7, Creatinine 0.4L, Estimat Glomerular Filtration Rate , Glucose Level 105, Calcium Level 8.1L Current Medications Medications (Trade) Dose Ordered Sig/Patricia Route PRN Reason Start Time Stop Time Status Last Admin Dose Admin Acetaminophen (Tylenol) 650 mg Q4H PRN ORAL fever 08/06/19 08:30 09/05/19 08:29 Clonidine HCl (Catapres Tab) 0.1 mg Q6H PRN ORAL sbp above 160 08/06/19 11:15 09/05/19 11:14 08/14/19 09:58 Dextrose (Dextrose 50%) 25 ml Q30M PRN IV Hypoglycemia 08/06/19 08:30 09/05/19 08:29 Dextrose (Dextrose 50%) 50 ml Q30M PRN IV Hypoglycemia 08/06/19 08:30 09/05/19 08:29 Dextrose/Sodium Chloride 1,000 ml @ 50 mls/hr Q20H IV 08/12/19 16:05 09/11/19 16:04 08/16/19 01:09 Dronabinol (Marinol) 2.5 mg TID ORAL 08/08/19 13:00 09/07/19 12:59 08/14/19 18:00 Heparin Sodium (Porcine) (Heparin 5000 units/ml) 5,000 units EVERY 12 HOURS SUBQ 08/06/19 09:00 09/05/19 08:59 08/15/19 20:57 Insulin Aspart (NovoLOG) BEFORE MEALS AND HS SUBQ 08/06/19 11:30 09/05/19 11:29 08/15/19 22:44 Losartan Potassium (Cozaar) 25 mg DAILY ORAL 08/06/19 12:00 09/05/19 11:59 08/14/19 09:58 Ondansetron HCl (Zofran) 4 mg Q6H PRN IVP Nausea & Vomiting 08/06/19 08:30 09/05/19 08:29 Polyethylene Glycol (Miralax) 17 gm HSPRN PRN ORAL Constipation 08/06/19 08:30 09/05/19 08:29 Vancomycin HCl (Firvanq) 125 mg FOUR TIMES A DAY ORAL 08/08/19 13:00 08/17/19 23:59 08/15/19 20:54 Arnaldo Easton MD Aug 16, 2019 11:59
--- NOTE | 2019-08-16 12:06 | Endoscopy Procedure Note ---
Endoscopy Procedure Note General Indication for Procedure: dysphagia Procedures Performed: EGD, PEG Operative Findings/Diagnosis: same Specimen: none Pt Tolerated Procedure Well: Yes Estimated Blood Loss: none Anesthesia Anesthesiologist: emilio Anesthesia: MAC Inserted Devices Implant(s) used?: No GI Core Measures 50 yrs or older w/o bx or poly: Not Applicable 10yrs. F/U recommended: Not Applicable Víctor Fonseca MD Aug 16, 2019 12:06
--- NOTE | 2019-08-16 12:07 | Anethesia Preoperative Eval ---
Anesthesia Pre-op PMH/ROS General Date of Evaluation: Aug 16, 2019 Time of Evaluation: 11:40 Anesthesiologist: Benito ASA Score: ASA 4 Mallampati Score Class I : Soft palate, uvula, fauces, pillars visible Class II: Soft palate, uvula, fauces visible Class III: Soft palate, base of uvula visible Class IV: Only hard plate visible Mallampati Classification: Class III Surgeon: aMrian Diagnosis: Dysphagia Surgical Procedure: EGD PEG Anesthesia History: none Family History: no anesthesia problems Allergies: Coded Allergies: LISINOPRIL (Verified Allergy, Unknown, 08/05/19) Medications: see eMAR Patient NPO?: Yes Past Medical History Cardiovascular: Reports: HTN; Denies: CAD, LA, valve dz, arrhythmia, other Pulmonary: Denies: asthma, COPD, LEO, other Gastrointestinal/Genitourinary: Reports: GERD; Denies: CRI, ESRD, other Neurologic/Psychiatric: Reports: dementia, CVA; Denies: depression/anxiety, TIA, other Endocrine: Reports: hypothyroidism; Denies: DM, steroids, other HEENT: Denies: cataract (L), cataract (R), glaucoma, UNGA (L), UNGA (R), other Hematology/Immune: Reports: anemia; Denies: DVT, bleeding disorder, other Musculoskeletal/Integumentary: Reports: DJD, other - contracted Other: other - malnourished PMH Narrative: as above PSxH Narrative: see chart Anesthesia Pre-op Phys. Exam Physician Exam Last Vital Signs Date Time Temp Pulse Resp B/P (MAP) Pulse Ox O2 Delivery O2 Flow Rate FiO2 08/16/19 09:00 125/76 08/16/19 08:24 Room Air 08/16/19 08:00 98.1 64 18 99 Constitutional: NAD Neurologic: other - unable to obtaine Respiratory: CTA Gastrointestinal: S/NT/ND Airway Exam Mallampati Score: Class III MO: limited Neck: stiff ROM: limited Teeth: missing Dentures: no upper, no lower Anesthesia Pre-op A/P Labs Hematology Test 08/16/19 05:25 White Blood Count 6.1 K/UL (4.8-10.8) Red Blood Count 3.71 M/UL (4.20-5.40) L Hemoglobin 11.3 G/DL (12.0-16.0) L Hematocrit 33.9 % (37.0-47.0) L Mean Corpuscular Volume 91 FL (80-99) Mean Corpuscular Hemoglobin 30.6 PG (27.0-31.0) Mean Corpuscular Hemoglobin Concent 33.5 G/DL (32.0-36.0) Red Cell Distribution Width 12.3 % (11.6-14.8) Platelet Count 174 K/UL (150-450) Mean Platelet Volume 6.4 FL (6.5-10.1) L Neutrophils (%) (Auto) 69.6 % (45.0-75.0) Lymphocytes (%) (Auto) 17.8 % (20.0-45.0) L Monocytes (%) (Auto) 11.1 % (1.0-10.0) H Eosinophils (%) (Auto) 0.5 % (0.0-3.0) Basophils (%) (Auto) 1.0 % (0.0-2.0) Coagulation Test 08/16/19 05:25 Prothrombin Time 11.9 SEC (9.30-11.50) H Prothromb Time International Ratio 1.1 (0.9-1.1) Activated Partial Thromboplast Time 32 SEC (23-33) Chemistry Test 08/16/19 05:25 Sodium Level 135 MMOL/L (136-145) L Potassium Level 3.5 MMOL/L (3.5-5.1) Chloride Level 102 MMOL/L (98-107) Carbon Dioxide Level 28 MMOL/L (21-32) Anion Gap 5 mmol/L (5-15) Blood Urea Nitrogen 7 mg/dL (7-18) Creatinine 0.4 MG/DL (0.55-1.30) L Estimat Glomerular Filtration Rate mL/min (>60) Glucose Level 105 MG/DL (74-106) Calcium Level 8.1 MG/DL (8.5-10.1) L Risk Assessment & Plan Assessment: ASA 4 Plan: MAC Status Change Before Surgery: Hector Thomas MD Aug 16, 2019 12:07
--- NOTE | 2019-08-16 12:18 | 48 Hour Post Anesthesia Eval ---
Post Anesthesia Evaluation Procedure: EGD PEG tube placement Date of Evaluation: Aug 16, 2019 Time of Evaluation: 12:16 Blood Pressure Systolic: 142 0: 64 Pulse Rate: 58 Respiratory Rate: 18 Temperature (Fahrenheit): 97.8 O2 Sat by Pulse Oximetry: 98 Airway: patent Nausea: No Vomiting: No Pain Intensity: 1 Hydration Status: adequate Cardiopulmonary Status: stable Mental Status/LOC: patient returned to baseline Follow-up Care/Observations: n/a Post-Anesthesia Complications: none Follow-up care needed: ready to discharge Hector Oliver MD Aug 16, 2019 12:18
--- NOTE | 2019-08-16 14:58 | Infectious Diseases Prog Note ---
Assessment/Plan Assessment/Plan Assessment/Plan 84 yo female with PMHx of DM and failure to thrive who was admitted to the hospital on 08/05/19. C. diff Diarrhea resolving Toxin assay Pos 08/07/19 UTI, Sp Rx UA (+) Urine Cx 08/05/19 - E,. coli (Sen to cefazolin) DM Failure to thrive Plan - Continue PO Vancomycin # 9 / ( End date 08/17/19) - 08/11/19 SP Ceftriaxone #6 - OK to D/C from an ID perspective - Monitor BMs - Monitor CBC and Temps - PEG placemtn Subjective Allergies: Coded Allergies: LISINOPRIL (Verified Allergy, Unknown, 08/05/19) Subjective scheduled for PEG Objective Vital Signs Last 24 Hour Vital Signs Date Time Temp Pulse Resp B/P (MAP) Pulse Ox O2 Delivery O2 Flow Rate FiO2 08/16/19 13:15 99.1 76 16 110/60 (77) 98 08/16/19 12:45 98.2 56 22 163/64 100 Room Air 08/16/19 12:35 58 15 162/65 100 Room Air 08/16/19 12:25 54 15 159/72 100 Nasal Cannula 3 08/16/19 12:20 55 18 150/68 100 Nasal Cannula 3 08/16/19 12:18 58 18 98 08/16/19 12:16 98.9 53 24 149/64 100 Nasal Cannula 3 08/16/19 09:00 125/76 08/16/19 08:24 Room Air 08/16/19 08:00 98.1 64 18 125/76 (92) 99 08/16/19 04:00 99.2 63 20 138/61 (86) 95 08/16/19 00:00 98.6 60 18 122/77 (92) 97 08/15/19 21:00 Room Air 08/15/19 20:00 98.4 61 18 139/61 (87) 96 08/15/19 16:00 98.9 58 18 115/69 (84) 96 Height (Feet): 5 Height (Inches): 1.00 Weight (Pounds): 95 HEENT: mucous membranes moist Respiratory/Chest: normal breath sounds Cardiovascular: normal rate Abdomen: soft, non tender Laboratory Tests Test 08/16/19 05:25 White Blood Count 6.1 K/UL (4.8-10.8) Red Blood Count 3.71 M/UL (4.20-5.40) L Hemoglobin 11.3 G/DL (12.0-16.0) L Hematocrit 33.9 % (37.0-47.0) L Mean Corpuscular Volume 91 FL (80-99) Mean Corpuscular Hemoglobin 30.6 PG (27.0-31.0) Mean Corpuscular Hemoglobin Concent 33.5 G/DL (32.0-36.0) Red Cell Distribution Width 12.3 % (11.6-14.8) Platelet Count 174 K/UL (150-450) Mean Platelet Volume 6.4 FL (6.5-10.1) L Neutrophils (%) (Auto) 69.6 % (45.0-75.0) Lymphocytes (%) (Auto) 17.8 % (20.0-45.0) L Monocytes (%) (Auto) 11.1 % (1.0-10.0) H Eosinophils (%) (Auto) 0.5 % (0.0-3.0) Basophils (%) (Auto) 1.0 % (0.0-2.0) Prothrombin Time 11.9 SEC (9.30-11.50) H Prothromb Time International Ratio 1.1 (0.9-1.1) Activated Partial Thromboplast Time 32 SEC (23-33) Sodium Level 135 MMOL/L (136-145) L Potassium Level 3.5 MMOL/L (3.5-5.1) Chloride Level 102 MMOL/L (98-107) Carbon Dioxide Level 28 MMOL/L (21-32) Anion Gap 5 mmol/L (5-15) Blood Urea Nitrogen 7 mg/dL (7-18) Creatinine 0.4 MG/DL (0.55-1.30) L Estimat Glomerular Filtration Rate mL/min (>60) Glucose Level 105 MG/DL (74-106) Calcium Level 8.1 MG/DL (8.5-10.1) L Current Medications Medications (Trade) Dose Ordered Sig/Patricia Route PRN Reason Start Time Stop Time Status Last Admin Dose Admin Acetaminophen (Tylenol) 650 mg Q4H PRN ORAL fever 08/06/19 08:30 09/05/19 08:29 Clonidine HCl (Catapres Tab) 0.1 mg Q6H PRN ORAL sbp above 160 08/06/19 11:15 09/05/19 11:14 08/14/19 09:58 Dextrose (Dextrose 50%) 25 ml Q30M PRN IV Hypoglycemia 08/06/19 08:30 09/05/19 08:29 Dextrose (Dextrose 50%) 50 ml Q30M PRN IV Hypoglycemia 08/06/19 08:30 09/05/19 08:29 Dextrose/Sodium Chloride 1,000 ml @ 50 mls/hr Q20H IV 08/12/19 16:05 09/11/19 16:04 08/16/19 01:09 Dronabinol (Marinol) 2.5 mg TID ORAL 08/08/19 13:00 09/07/19 12:59 08/16/19 14:00 Heparin Sodium (Porcine) (Heparin 5000 units/ml) 5,000 units EVERY 12 HOURS SUBQ 08/06/19 09:00 09/05/19 08:59 08/15/19 20:57 Insulin Aspart (NovoLOG) BEFORE MEALS AND HS SUBQ 08/06/19 11:30 09/05/19 11:29 08/15/19 22:44 Losartan Potassium (Cozaar) 25 mg DAILY ORAL 08/06/19 12:00 09/05/19 11:59 08/14/19 09:58 Ondansetron HCl (Zofran) 4 mg Q6H PRN IVP Nausea & Vomiting 08/06/19 08:30 09/05/19 08:29 Polyethylene Glycol (Miralax) 17 gm HSPRN PRN ORAL Constipation 08/06/19 08:30 09/05/19 08:29 Vancomycin HCl (Firvanq) 125 mg FOUR TIMES A DAY ORAL 08/08/19 13:00 08/17/19 23:59 08/16/19 13:59 Mati Osuna MD Aug 16, 2019 14:58
--- NOTE | 2019-08-16 17:30 | Procedure Note ---
DATE OF PROCEDURE: 08/16/2019 SURGEON: Víctor Fonseca M.D. REFERRING PHYSICIAN: Reynold Saldivar D.O. PROCEDURE: Upper endoscopy with PEG placement. ANESTHESIA: Per Dr. Oliver. INSTRUMENT: Olympus adult flexible upper endoscope. INDICATIONS: 1. Dysphagia. 2. Failure to thrive. REASON FOR PROCEDURE: The procedure, risks, benefits, and possible consequences, including hemorrhage, aspiration, perforation and infection, and alternative treatments, were explained to the patient/legal guardian by Dr. Víctor Fonseca and the patient/legal guardian understood and accepted these risks. PROCEDURE IN DETAIL: After informed consent was obtained and the patient was adequately sedated, Olympus upper endoscope was advanced from mouth into the second portion of the duodenum and retroflexion was performed in the stomach. The patient has evidence of diffuse gastritis. No evidence of any active ulceration or bleeding. Then, under endoscopic guidance and under sterile condition, a 20-Persian pull type of G-tube was successfully placed in the epigastric area. The distance from the tip of the tube to skin was about 2.5 cm in size. The patient tolerated the procedure very well without any complication. SUMMARY OF FINDINGS: Status post successful PEG placement. RECOMMENDATIONS: 1. Abdominal binder. 2. Elevate the head of the bed at all times. 3. G-tube flush. 4. G-tube care. 5. Start tube feeding later today. 6. The patient received a dose of antibiotics today. I want to thank Dr. Reynold Saldivar for this kind referral. Víctor Fonseca M.D. DR: BRENTON JOB#: [id number] CC:
[2019-08-16] MEDS ORDERED: D5 1/2NS 1000ml IV ONE (18:26)
[2019-08-16] MEDS ORDERED: Tubing IV Secondary IV ONE (18:26)
--- NOTE | 2019-08-16 19:24 | NUR ---
HAND-OFF: Report given to VIGNESH Hernandez.
--- NOTE | 2019-08-16 19:30 | NUR ---
NURSE NOTES: Received patient in no apparent distress. Asleep, Non verbal. IV site patent and intact. G-tube in place, running Glucerna 1.5 50cc/hr, 0cc residual noted, flushed, elevated HOB. [place] cath draining well by gravity, yellow urine noted. Family member at bedside. Bed in lowest position. Call light within reach. Will continue to monitor.
--- NOTE | 2019-08-16 19:55 | NUR ---
CASE MANAGEMENT: REVIEW SI: FAILURE TO THRIVE . C-DIFF EGD / PEG PLACEMENT 08/15 T 98.2 HR 56 RR 22 BP 163/64 SAT 100% NC/3L H/H 11.3/33.9 NA 135 IS: D5 1/2 NS IVF @ 50ML/HR MARINOL PO TID VANCO HCl QID NOVOLOG SUBQ AC+HS HEPARIN SUBQ Q12HR GT FEEDING GLUCERNA 1.5 @ 50ML/HR MED/SURG STATUS DCP: PATIENT IS FROM [facility]
[2019-08-17] VITALS: BP 137/71
[2019-08-17 04:00] VITALS: BP 94/36
[2019-08-17 06:08] LABS: BASOPHILS % (AUTO) 0.5 % (0.0-2.0); EOSINOPHILS % (AUTO) 0.8 % (0.0-3.0); HEMATOCRIT 35.6 % (37.0-47.0); HEMOGLOBIN 12.1 G/DL (12.0-16.0); MEAN CORPUSCULAR VOLUME 91 FL (80-99); MONOCYTES % (AUTO) 10.3 % (1.0-10.0); NEUTROPHILS % (AUTO) 71.4 % (45.0-75.0); PLATELET COUNT 192 K/UL (150-450); RED BLOOD COUNT 3.92 M/UL (4.20-5.40); RED CELL DISTRIBUTION WIDTH 12.5 % (11.6-14.8); WHITE BLOOD COUNT 7.6 K/UL (4.8-10.8)
[2019-08-17] MEDS: NovoLOG Insulin Flexpen SUBQ SCH ×4 (06:30→20:47)
[2019-08-17 06:53] LABS: ANION GAP 7 mmol/L (5-15); BLOOD UREA NITROGEN 12 mg/dL (7-18); CALCIUM 8.5 MG/DL (8.5-10.1); CARBON DIOXIDE 28 MMOL/L (21-32); CHLORIDE 102 MMOL/L (98-107); CREATININE 0.5 MG/DL (0.55-1.30); POTASSIUM 3.7 MMOL/L (3.5-5.1); SODIUM 137 MMOL/L (136-145)
--- NOTE | 2019-08-17 07:08 | NUR ---
HAND-OFF: Report given to Cecily MEDELLIN.
[2019-08-17 08:00] VITALS: BP 128/54
[2019-08-17] MEDS: Losartan 25mg tab ORAL SCH (09:00)
[2019-08-17] MEDS: Vancomycin oral 125mg/2.5ml ORAL SCH ×4 (09:03→20:53)
[2019-08-17] MEDS: Dronabinol 2.5mg Cap ORAL SCH ×3 (09:03→17:50)
[2019-08-17] MEDS: Heparin 5000 units/ml inj SUBQ SCH ×2 (09:04→20:47)
--- NOTE | 2019-08-17 11:38 | Pulmonology Progress Note ---
Assessment/Plan Problems: (1) Failure to thrive (2) At high risk for aspiration (3) Diabetes (4) Protein-calorie malnutrition, severe (5) Limited mobility in bed (6) Flexion contractures Assessment/Plan aspiration precaution symptomatic treatment sliding scale diabetic diet check electrolytes titrate fio2 to sat of 92%\ PEG is done, Subjective ROS Limited/Unobtainable: No Constitutional: Reports: no symptoms HEENT: Repors: no symptoms Allergies: Coded Allergies: LISINOPRIL (Verified Allergy, Unknown, 08/05/19) Objective Last 24 Hour Vital Signs Date Time Temp Pulse Resp B/P (MAP) Pulse Ox O2 Delivery O2 Flow Rate FiO2 08/17/19 09:00 128/54 08/17/19 08:00 98.0 62 19 128/54 (78) 98 08/17/19 07:45 Room Air 08/17/19 07:42 Room Air 08/17/19 04:00 98.6 61 18 94/36 (55) 97 08/17/19 00:00 98.5 65 18 137/71 (93) 98 08/16/19 21:00 Room Air 08/16/19 20:00 98.5 62 20 99/58 (72) 98 08/16/19 16:00 98.0 76 18 131/86 (101) 96 08/16/19 13:15 99.1 76 16 110/60 (77) 98 08/16/19 12:45 98.2 56 22 163/64 100 Room Air 08/16/19 12:35 58 15 162/65 100 Room Air 08/16/19 12:25 54 15 159/72 100 Nasal Cannula 3 08/16/19 12:20 55 18 150/68 100 Nasal Cannula 3 08/16/19 12:18 58 18 98 08/16/19 12:16 98.9 53 24 149/64 100 Nasal Cannula 3 Intake and Output 08/16/19 08/17/19 19:00 07:00 Intake Total 700 ml 1430 ml Output Total 280 ml 200 ml Balance 420 ml 1230 ml Free Water 300 ml 330 ml IV Total 300 ml 550 ml Tube Feeding 100 ml 550 ml Output Urine Total 280 ml 200 ml # Voids 1 # Bowel Movements 2 Objective General Appearance: cachectic HEENT: normocephalic, atraumatic Respiratory/Chest: chest wall non-tender, lungs clear Breasts: no masses Cardiovascular: normal peripheral pulses Abdomen: normal bowel sounds, soft, non tender Genitourinary: normal external genitalia Extremities: no clubbing Neurologic/Psychiatric: 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 II-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 grossly normal Lymphatic: no neck adenopathy Laboratory Tests 08/17/19 05:37: White Blood Count 7.6, Red Blood Count 3.92L, Hemoglobin 12.1, Hematocrit 35.6L , Mean Corpuscular Volume 91, Mean Corpuscular Hemoglobin 30.7, Mean Corpuscular Hemoglobin Concent 33.9, Red Cell Distribution Width 12.5, Platelet Count 192, Mean Platelet Volume 6.4L, Neutrophils (%) (Auto) 71.4, Lymphocytes ( %) (Auto) 17.0L, Monocytes (%) (Auto) 10.3H, Eosinophils (%) (Auto) 0.8, Basophils (%) (Auto) 0.5, Sodium Level 137, Potassium Level 3.7, Chloride Level 102, Carbon Dioxide Level 28, Anion Gap 7, Blood Urea Nitrogen 12, Creatinine 0.5L, Estimat Glomerular Filtration Rate , Glucose Level 106, Calcium Level 8.5 Current Medications Medications (Trade) Dose Ordered Sig/Patricia Route PRN Reason Start Time Stop Time Status Last Admin Dose Admin Acetaminophen (Tylenol) 650 mg Q4H PRN ORAL fever 08/06/19 08:30 09/05/19 08:29 08/16/19 22:17 Clonidine HCl (Catapres Tab) 0.1 mg Q6H PRN ORAL sbp above 160 08/06/19 11:15 09/05/19 11:14 08/14/19 09:58 Dextrose (Dextrose 50%) 25 ml Q30M PRN IV Hypoglycemia 08/06/19 08:30 09/05/19 08:29 Dextrose (Dextrose 50%) 50 ml Q30M PRN IV Hypoglycemia 08/06/19 08:30 09/05/19 08:29 Dronabinol (Marinol) 2.5 mg TID ORAL 08/08/19 13:00 09/07/19 12:59 08/17/19 09:03 Heparin Sodium (Porcine) (Heparin 5000 units/ml) 5,000 units EVERY 12 HOURS SUBQ 08/06/19 09:00 09/05/19 08:59 08/17/19 09:04 Insulin Aspart (NovoLOG) BEFORE MEALS AND HS SUBQ 08/06/19 11:30 09/05/19 11:29 08/16/19 22:12 Losartan Potassium (Cozaar) 25 mg DAILY ORAL 08/06/19 12:00 09/05/19 11:59 08/14/19 09:58 Ondansetron HCl (Zofran) 4 mg Q6H PRN IVP Nausea & Vomiting 08/06/19 08:30 09/05/19 08:29 Polyethylene Glycol (Miralax) 17 gm HSPRN PRN ORAL Constipation 08/06/19 08:30 09/05/19 08:29 Vancomycin HCl (Firvanq) 125 mg FOUR TIMES A DAY ORAL 08/08/19 13:00 08/17/19 23:59 08/17/19 09:03 Arnaldo Easton MD Aug 17, 2019 11:38
[2019-08-17 12:00] VITALS: BP 106/68
--- NOTE | 2019-08-17 12:00 | GI Progress Note ---
Assessment/Plan Problems: (1) Weakness ICD Codes: R53.1 - Weakness SNOMED: 81975481 (2) Malnutrition ICD Codes: E46 - Unspecified protein-calorie malnutrition SNOMED: 55223247 (3) Failure to thrive SNOMED: 50092127 Qualifiers: Qualified Codes: R62.7 - Adult failure to thrive Status: stable Status Narrative Discussed with Dr. Fonseca. Assessment/Plan SUMMARY OF FINDINGS: Status post successful PEG placement. RECOMMENDATIONS: okay for DC per GI standpoint maintain regular diet for oral gratification Push p.o. Strict aspiration precautions One-to-one feeder cont Marinol Follow labs The patient was seen and examined at bedside and all new and available data was reviewed in the patients chart. I agree with the above findings, impression and plan. (Patient seen earlier today. Signature stamp does not reflect patient encounter time.). - Víctor Fonseca MD Subjective Subjective Limited Objective Last 24 Hour Vital Signs Date Time Temp Pulse Resp B/P (MAP) Pulse Ox O2 Delivery O2 Flow Rate FiO2 08/17/19 09:00 128/54 08/17/19 08:00 98.0 62 19 128/54 (78) 98 08/17/19 07:45 Room Air 08/17/19 07:42 Room Air 08/17/19 04:00 98.6 61 18 94/36 (55) 97 08/17/19 00:00 98.5 65 18 137/71 (93) 98 08/16/19 21:00 Room Air 08/16/19 20:00 98.5 62 20 99/58 (72) 98 08/16/19 16:00 98.0 76 18 131/86 (101) 96 08/16/19 13:15 99.1 76 16 110/60 (77) 98 08/16/19 12:45 98.2 56 22 163/64 100 Room Air 08/16/19 12:35 58 15 162/65 100 Room Air 08/16/19 12:25 54 15 159/72 100 Nasal Cannula 3 08/16/19 12:20 55 18 150/68 100 Nasal Cannula 3 08/16/19 12:18 58 18 98 08/16/19 12:16 98.9 53 24 149/64 100 Nasal Cannula 3 Intake and Output 08/16/19 08/17/19 19:00 07:00 Intake Total 700 ml 1430 ml Output Total 280 ml 200 ml Balance 420 ml 1230 ml Free Water 300 ml 330 ml IV Total 300 ml 550 ml Tube Feeding 100 ml 550 ml Output Urine Total 280 ml 200 ml # Voids 1 # Bowel Movements 2 Laboratory Tests Test 08/17/19 05:37 White Blood Count 7.6 K/UL (4.8-10.8) Red Blood Count 3.92 M/UL (4.20-5.40) L Hemoglobin 12.1 G/DL (12.0-16.0) Hematocrit 35.6 % (37.0-47.0) L Mean Corpuscular Volume 91 FL (80-99) Mean Corpuscular Hemoglobin 30.7 PG (27.0-31.0) Mean Corpuscular Hemoglobin Concent 33.9 G/DL (32.0-36.0) Red Cell Distribution Width 12.5 % (11.6-14.8) Platelet Count 192 K/UL (150-450) Mean Platelet Volume 6.4 FL (6.5-10.1) L Neutrophils (%) (Auto) 71.4 % (45.0-75.0) Lymphocytes (%) (Auto) 17.0 % (20.0-45.0) L Monocytes (%) (Auto) 10.3 % (1.0-10.0) H Eosinophils (%) (Auto) 0.8 % (0.0-3.0) Basophils (%) (Auto) 0.5 % (0.0-2.0) Sodium Level 137 MMOL/L (136-145) Potassium Level 3.7 MMOL/L (3.5-5.1) Chloride Level 102 MMOL/L (98-107) Carbon Dioxide Level 28 MMOL/L (21-32) Anion Gap 7 mmol/L (5-15) Blood Urea Nitrogen 12 mg/dL (7-18) Creatinine 0.5 MG/DL (0.55-1.30) L Estimat Glomerular Filtration Rate mL/min (>60) Glucose Level 106 MG/DL (74-106) Calcium Level 8.5 MG/DL (8.5-10.1) Height (Feet): 5 Height (Inches): 1.00 Weight (Pounds): 95 General Appearance: alert, thin Cardiovascular: normal rate Respiratory/Chest: normal breath sounds Abdominal Exam: soft Objective Reported by the RN the patient tolerated approximately 25% of her meals Remi Rico NP Aug 17, 2019 12:00
--- NOTE | 2019-08-17 12:16 | Infectious Diseases Prog Note ---
Assessment/Plan Assessment/Plan Assessment/Plan 84 yo female with PMHx of DM and failure to thrive who was admitted to the hospital on 08/05/19. C. diff Diarrhea resolving Toxin assay Pos 08/07/19 UTI, Sp Rx UA (+) Urine Cx 08/05/19 - E,. coli (Sen to cefazolin) sp PEG DM Failure to thrive Plan - Continue PO Vancomycin # / ( may DC upon Discharge) , - OK to D/C from an ID perspective w cont oral Vanco - 08/11/19 SP Ceftriaxone #6 - Monitor BMs - Monitor CBC and Temps Subjective Allergies: Coded Allergies: LISINOPRIL (Verified Allergy, Unknown, 08/05/19) Subjective Sp PEG Objective Vital Signs Last 24 Hour Vital Signs Date Time Temp Pulse Resp B/P (MAP) Pulse Ox O2 Delivery O2 Flow Rate FiO2 08/17/19 09:00 128/54 08/17/19 08:00 98.0 62 19 128/54 (78) 98 08/17/19 07:45 Room Air 08/17/19 07:42 Room Air 08/17/19 04:00 98.6 61 18 94/36 (55) 97 08/17/19 00:00 98.5 65 18 137/71 (93) 98 08/16/19 21:00 Room Air 08/16/19 20:00 98.5 62 20 99/58 (72) 98 08/16/19 16:00 98.0 76 18 131/86 (101) 96 08/16/19 13:15 99.1 76 16 110/60 (77) 98 08/16/19 12:45 98.2 56 22 163/64 100 Room Air 08/16/19 12:35 58 15 162/65 100 Room Air 08/16/19 12:25 54 15 159/72 100 Nasal Cannula 3 08/16/19 12:20 55 18 150/68 100 Nasal Cannula 3 08/16/19 12:18 58 18 98 08/16/19 12:16 98.9 53 24 149/64 100 Nasal Cannula 3 Height (Feet): 5 Height (Inches): 1.00 Weight (Pounds): 95 HEENT: mucous membranes moist Respiratory/Chest: normal breath sounds Cardiovascular: regular rhythm Abdomen: soft, non tender Laboratory Tests Test 08/17/19 05:37 White Blood Count 7.6 K/UL (4.8-10.8) Red Blood Count 3.92 M/UL (4.20-5.40) L Hemoglobin 12.1 G/DL (12.0-16.0) Hematocrit 35.6 % (37.0-47.0) L Mean Corpuscular Volume 91 FL (80-99) Mean Corpuscular Hemoglobin 30.7 PG (27.0-31.0) Mean Corpuscular Hemoglobin Concent 33.9 G/DL (32.0-36.0) Red Cell Distribution Width 12.5 % (11.6-14.8) Platelet Count 192 K/UL (150-450) Mean Platelet Volume 6.4 FL (6.5-10.1) L Neutrophils (%) (Auto) 71.4 % (45.0-75.0) Lymphocytes (%) (Auto) 17.0 % (20.0-45.0) L Monocytes (%) (Auto) 10.3 % (1.0-10.0) H Eosinophils (%) (Auto) 0.8 % (0.0-3.0) Basophils (%) (Auto) 0.5 % (0.0-2.0) Sodium Level 137 MMOL/L (136-145) Potassium Level 3.7 MMOL/L (3.5-5.1) Chloride Level 102 MMOL/L (98-107) Carbon Dioxide Level 28 MMOL/L (21-32) Anion Gap 7 mmol/L (5-15) Blood Urea Nitrogen 12 mg/dL (7-18) Creatinine 0.5 MG/DL (0.55-1.30) L Estimat Glomerular Filtration Rate mL/min (>60) Glucose Level 106 MG/DL (74-106) Calcium Level 8.5 MG/DL (8.5-10.1) Current Medications Medications (Trade) Dose Ordered Sig/Patricia Route PRN Reason Start Time Stop Time Status Last Admin Dose Admin Acetaminophen (Tylenol) 650 mg Q4H PRN ORAL fever 08/06/19 08:30 09/05/19 08:29 08/16/19 22:17 Clonidine HCl (Catapres Tab) 0.1 mg Q6H PRN ORAL sbp above 160 08/06/19 11:15 09/05/19 11:14 08/14/19 09:58 Dextrose (Dextrose 50%) 25 ml Q30M PRN IV Hypoglycemia 08/06/19 08:30 09/05/19 08:29 Dextrose (Dextrose 50%) 50 ml Q30M PRN IV Hypoglycemia 08/06/19 08:30 09/05/19 08:29 Dronabinol (Marinol) 2.5 mg TID ORAL 08/08/19 13:00 09/07/19 12:59 08/17/19 12:11 Heparin Sodium (Porcine) (Heparin 5000 units/ml) 5,000 units EVERY 12 HOURS SUBQ 08/06/19 09:00 09/05/19 08:59 08/17/19 09:04 Insulin Aspart (NovoLOG) BEFORE MEALS AND HS SUBQ 08/06/19 11:30 09/05/19 11:29 08/16/19 22:12 Losartan Potassium (Cozaar) 25 mg DAILY ORAL 08/06/19 12:00 09/05/19 11:59 08/14/19 09:58 Ondansetron HCl (Zofran) 4 mg Q6H PRN IVP Nausea & Vomiting 08/06/19 08:30 09/05/19 08:29 Polyethylene Glycol (Miralax) 17 gm HSPRN PRN ORAL Constipation 08/06/19 08:30 09/05/19 08:29 Vancomycin HCl (Firvanq) 125 mg FOUR TIMES A DAY ORAL 08/08/19 13:00 08/17/19 23:59 08/17/19 12:11 Mati Osuna MD Aug 17, 2019 12:16
--- NOTE | 2019-08-17 14:35 | General Progress Note ---
Assessment/Plan Problem List: (1) Diabetes ICD Codes: E11.9 - Type 2 diabetes mellitus without complications SNOMED: 82449216 (2) Malnutrition ICD Codes: E46 - Unspecified protein-calorie malnutrition SNOMED: 25146722 (3) Failure to thrive SNOMED: 23533889 Qualifiers: Qualified Codes: R62.7 - Adult failure to thrive (4) Weakness ICD Codes: R53.1 - Weakness SNOMED: 80972503 (5) UTI (urinary tract infection) ICD Codes: N39.0 - Urinary tract infection, site not specified SNOMED: 90792889 Qualifiers: Qualified Codes: N39.0 - Urinary tract infection, site not specified Status: stable Assessment/Plan: pt diet abx neuro dc if clear Subjective Constitutional: Reports: weakness Allergies: Coded Allergies: LISINOPRIL (Verified Allergy, Unknown, 08/05/19) All Systems: reviewed and negative except above Subjective calm sleepy in bed Objective Last 24 Hour Vital Signs Date Time Temp Pulse Resp B/P (MAP) Pulse Ox O2 Delivery O2 Flow Rate FiO2 08/17/19 12:00 97.0 75 20 106/68 (81) 100 08/17/19 09:00 128/54 08/17/19 08:00 98.0 62 19 128/54 (78) 98 08/17/19 07:45 Room Air 08/17/19 07:42 Room Air 08/17/19 04:00 98.6 61 18 94/36 (55) 97 08/17/19 00:00 98.5 65 18 137/71 (93) 98 08/16/19 21:00 Room Air 08/16/19 20:00 98.5 62 20 99/58 (72) 98 08/16/19 16:00 98.0 76 18 131/86 (101) 96 Intake and Output 08/16/19 08/17/19 19:00 07:00 Intake Total 700 ml 1430 ml Output Total 280 ml 200 ml Balance 420 ml 1230 ml Free Water 300 ml 330 ml IV Total 300 ml 550 ml Tube Feeding 100 ml 550 ml Output Urine Total 280 ml 200 ml # Voids 1 # Bowel Movements 2 Laboratory Tests 08/17/19 05:37: White Blood Count 7.6, Red Blood Count 3.92L, Hemoglobin 12.1, Hematocrit 35.6L , Mean Corpuscular Volume 91, Mean Corpuscular Hemoglobin 30.7, Mean Corpuscular Hemoglobin Concent 33.9, Red Cell Distribution Width 12.5, Platelet Count 192, Mean Platelet Volume 6.4L, Neutrophils (%) (Auto) 71.4, Lymphocytes ( %) (Auto) 17.0L, Monocytes (%) (Auto) 10.3H, Eosinophils (%) (Auto) 0.8, Basophils (%) (Auto) 0.5, Sodium Level 137, Potassium Level 3.7, Chloride Level 102, Carbon Dioxide Level 28, Anion Gap 7, Blood Urea Nitrogen 12, Creatinine 0.5L, Estimat Glomerular Filtration Rate , Glucose Level 106, Calcium Level 8.5 Height (Feet): 5 Height (Inches): 1.00 Weight (Pounds): 95 General Appearance: lethargic EENT: normal ENT inspection Neck: normal alignment Cardiovascular: normal peripheral pulses, normal rate, regular rhythm Respiratory/Chest: chest wall non-tender, lungs clear, normal breath sounds Abdomen: normal bowel sounds, non tender, soft Extremities: normal inspection Edema: no edema noted Arm (L), no edema noted Arm (R), no edema noted Leg (L), no edema noted Leg (R), no edema noted Pedal (L), no edema noted Pedal (R), no edema noted Generalized Neurologic: motor weakness Skin: normal pigmentation, warm/dry Reynold Saldivar DO Aug 17, 2019 14:35
--- NOTE | 2019-08-17 15:16 | NUR ---
*-* DISCHARGE PLANNING *-* PATIENT HAS BEEN REFERRED BACK TO: [facility] P: [phone] F: [phone]
--- NOTE | 2019-08-17 15:20 | NUR ---
*-* INSURANCE *-* ALL CLINICALS AND REVIEWS HAVE BEEN FAXED TO: [facility]ICALS TO [phone]
--- NOTE | 2019-08-17 15:59 | NUR ---
NURSE NOTES: RN requested Dr. Easton complete pt's medication recon for discharge.
[2019-08-17 16:00] VITALS: BP 108/83
--- NOTE | 2019-08-17 16:21 | NUR ---
DISCHARGE PLANNING DISCHARGE ORDER NOTED Patient has been accepted to; [facility] [address] [place] [address] Bed:21-A Skilled [phone] for Nurse to Nurse report [facility] ETA for transportation: 18:00
--- NOTE | 2019-08-17 16:57 | NUR ---
NURSE NOTES: Called report to VIGNESH Conteh at [facility] Addendum: 08/17/19 at 1702 by ARJUN MANZANARES RN NURSE NOTES: Yady stated she cannot accept full report until the "LIE DETECTOR OPERATOR" is sent over showing the C Diff is resolved. RN spoke to Torrie in and Torrie will contact [facility] to follow up as she has already spoke with their windows vmware administrator and the pt has been accepted Addendum: 08/17/19 at 1725 by ARJUN MANZANARES RN NURSE NOTES: Spoke to ROEL Brownlee, [facility] will not accept pt until C Diff test is done. VIGNESH asked Dr. Osuna for order for C Diff Toxin. Dr. Osuna said "No need to order, that is mal-practice, they should take pt back." Notified Dr. Osuna that and myself have gone back and forth with facility many times, but they will not accept pt without C Diff F/U exam being done. Addendum: 08/17/19 at 1824 by ARJUN MANZANARES RN NURSE NOTES: No new order received from Dr. Osuna regarding C. Diff toxin. RN discussed with ROEL Brownlee. Asked if another physician should be contacted for order. ROEL Brownlee stated she will complete discharge work tomorrow.
--- NOTE | 2019-08-17 17:13 | NUR ---
CRATE OPENER NOTES SPOKE WITH JOSE RAUL FROM [facility],UNABLE TO ACCEPT PT BACK UNTIL CLEARED FOR C-DIFF. NURSE MADE AWARE TO CALL MD TO OBTAIN AN ORDER FOR C-DIFF STOOL.
--- NOTE | 2019-08-17 19:08 | NUR ---
HAND-OFF: Report given to VIGNESH Hernandez.
--- NOTE | 2019-08-17 19:30 | NUR ---
NURSE NOTES: Received patient in no apparent distress. Asleep, Non verbal. IV site patent and intact. G-tube in place, running Glucerna 1.5 50cc/hr, 0cc residual noted, flushed, elevated HOB. [place] cath draining well by gravity, yellow urine noted. Family members are at bedside. Bed in lowest position. Call light within reach. Will continue to monitor.
[2019-08-17 20:00] VITALS: BP 129/55
[2019-08-18] VITALS: BP 106/50
[2019-08-18 04:00] VITALS: BP 114/50
[2019-08-18] MEDS: NovoLOG Insulin Flexpen SUBQ SCH ×2 (06:30→12:05)
[2019-08-18 06:40] LABS: BASOPHILS % (AUTO) 0.4 % (0.0-2.0); HEMATOCRIT 40.2 % (37.0-47.0); HEMOGLOBIN 13.2 G/DL (12.0-16.0); LYMPHOCYTES % (AUTO) 19.2 % (20.0-45.0); MEAN CORPUSCULAR VOLUME 92 FL (80-99); MONOCYTES % (AUTO) 11.2 % (1.0-10.0); NEUTROPHILS % (AUTO) 68.3 % (45.0-75.0); PLATELET COUNT 223 K/UL (150-450); RED BLOOD COUNT 4.37 M/UL (4.20-5.40); RED CELL DISTRIBUTION WIDTH 12.4 % (11.6-14.8); WHITE BLOOD COUNT 7.6 K/UL (4.8-10.8)
[2019-08-18 07:22] LABS: ANION GAP 5 mmol/L (5-15); BLOOD UREA NITROGEN 17 mg/dL (7-18); CARBON DIOXIDE 32 MMOL/L (21-32); CHLORIDE 102 MMOL/L (98-107); CREATININE 0.5 MG/DL (0.55-1.30); POTASSIUM 4.1 MMOL/L (3.5-5.1); SODIUM 139 MMOL/L (136-145)
--- NOTE | 2019-08-18 07:37 | NUR ---
HAND-OFF: Report given to Armida MEDELLIN.
--- NOTE | 2019-08-18 07:58 | NUR ---
NURSE NOTES: received report from VIGNESH Hernandez. patient in bed, sleeping. no respiratory distress noted. no facial grimacing. Melvin left wrist 24. saline lock intact. GTF runnign glucerna 1.5 @50. HOB at all times. f/c for retention draining. yellow. no sediments. bed in the lowest position and locked. call light within reach. alarm on. will continue to provide plan of care.
[2019-08-18 08:00] VITALS: BP 118/54
--- NOTE | 2019-08-18 08:37 | General Progress Note ---
Assessment/Plan Problem List: (1) Diabetes ICD Codes: E11.9 - Type 2 diabetes mellitus without complications SNOMED: 00497338 (2) Malnutrition ICD Codes: E46 - Unspecified protein-calorie malnutrition SNOMED: 19513536 (3) Failure to thrive SNOMED: 44179548 Qualifiers: Qualified Codes: R62.7 - Adult failure to thrive (4) Weakness ICD Codes: R53.1 - Weakness SNOMED: 41244905 (5) UTI (urinary tract infection) ICD Codes: N39.0 - Urinary tract infection, site not specified SNOMED: 40726610 Qualifiers: Qualified Codes: N39.0 - Urinary tract infection, site not specified Status: stable, progressing Assessment/Plan: pt diet abx neuro cbc bmp am dc if clear Subjective Constitutional: Reports: weakness Allergies: Coded Allergies: LISINOPRIL (Verified Allergy, Unknown, 08/05/19) All Systems: reviewed and negative except above Subjective calm sleepy in bed Objective Last 24 Hour Vital Signs Date Time Temp Pulse Resp B/P (MAP) Pulse Ox O2 Delivery O2 Flow Rate FiO2 08/18/19 08:00 97.7 62 19 118/54 (75) 99 08/18/19 04:00 97.9 60 18 114/50 (71) 100 08/18/19 00:00 98.3 66 18 106/50 (68) 97 08/17/19 21:00 Room Air 08/17/19 20:00 98.6 70 18 129/55 (79) 99 08/17/19 16:00 97.2 61 19 108/83 (91) 100 08/17/19 12:00 97.0 75 20 106/68 (81) 100 08/17/19 09:00 128/54 Intake and Output 08/17/19 08/18/19 18:59 06:59 Intake Total 550 ml 930 ml Output Total 400 ml 750 ml Balance 150 ml 180 ml Intake Oral 100 ml Free Water 400 ml 330 ml Tube Feeding 50 ml 600 ml Output Urine Total 400 ml 750 ml # Bowel Movements 1 Laboratory Tests 08/18/19 06:00: White Blood Count 7.6, Red Blood Count 4.37, Hemoglobin 13.2, Hematocrit 40.2, Mean Corpuscular Volume 92, Mean Corpuscular Hemoglobin 30.2, Mean Corpuscular Hemoglobin Concent 32.8, Red Cell Distribution Width 12.4, Platelet Count 223, Mean Platelet Volume 6.8, Neutrophils (%) (Auto) 68.3, Lymphocytes (%) (Auto) 19.2L, Monocytes (%) (Auto) 11.2H, Eosinophils (%) (Auto) 1.0, Basophils (%) ( Auto) 0.4, Sodium Level 139, Potassium Level 4.1, Chloride Level 102, Carbon Dioxide Level 32, Anion Gap 5, Blood Urea Nitrogen 17, Creatinine 0.5L, Estimat Glomerular Filtration Rate , Glucose Level 98, Calcium Level 9.0 Height (Feet): 5 Height (Inches): 1.00 Weight (Pounds): 95 General Appearance: lethargic, confused EENT: normal ENT inspection Neck: normal alignment Cardiovascular: normal peripheral pulses, normal rate, regular rhythm Respiratory/Chest: chest wall non-tender, lungs clear, normal breath sounds Abdomen: normal bowel sounds, non tender, soft Extremities: normal inspection Edema: no edema noted Arm (L), no edema noted Arm (R), no edema noted Leg (L), no edema noted Leg (R), no edema noted Pedal (L), no edema noted Pedal (R), no edema noted Generalized Neurologic: motor weakness Skin: normal pigmentation, warm/dry Reynold Saldivar DO Aug 18, 2019 08:37
[2019-08-18] MEDS: Losartan 25mg tab ORAL SCH (09:11)
[2019-08-18] MEDS: Dronabinol 2.5mg Cap ORAL SCH (09:11)
[2019-08-18] MEDS: Vancomycin oral 125mg/2.5ml ORAL SCH (09:11)
[2019-08-18] MEDS: Heparin 5000 units/ml inj SUBQ SCH (09:13)
--- NOTE | 2019-08-18 10:37 | GI Progress Note ---
Assessment/Plan Problems: (1) Weakness ICD Codes: R53.1 - Weakness SNOMED: 15125700 (2) Malnutrition ICD Codes: E46 - Unspecified protein-calorie malnutrition SNOMED: 53612000 (3) Failure to thrive SNOMED: 74408173 Qualifiers: Qualified Codes: R62.7 - Adult failure to thrive Status: stable, unchanged Status Narrative Discussed with Dr. Fonseca. Assessment/Plan SUMMARY OF FINDINGS: Status post successful PEG placement. RECOMMENDATIONS: okay for DC per GI standpoint maintain regular diet for oral gratification Push p.o. Strict aspiration precautions One-to-one feeder cont Marinol Follow labs The patient was seen and examined at bedside and all new and available data was reviewed in the patients chart. I agree with the above findings, impression and plan. (Patient seen earlier today. Signature stamp does not reflect patient encounter time.). - Víctor Fonseca MD Subjective Subjective Limited Objective Last 24 Hour Vital Signs Date Time Temp Pulse Resp B/P (MAP) Pulse Ox O2 Delivery O2 Flow Rate FiO2 08/18/19 09:11 118/54 08/18/19 08:00 97.7 62 19 118/54 (75) 99 08/18/19 04:00 97.9 60 18 114/50 (71) 100 08/18/19 00:00 98.3 66 18 106/50 (68) 97 08/17/19 21:00 Room Air 08/17/19 20:00 98.6 70 18 129/55 (79) 99 08/17/19 16:00 97.2 61 19 108/83 (91) 100 08/17/19 12:00 97.0 75 20 106/68 (81) 100 Intake and Output 08/17/19 08/18/19 18:59 06:59 Intake Total 550 ml 930 ml Output Total 400 ml 750 ml Balance 150 ml 180 ml Intake Oral 100 ml Free Water 400 ml 330 ml Tube Feeding 50 ml 600 ml Output Urine Total 400 ml 750 ml # Bowel Movements 1 Laboratory Tests Test 08/18/19 06:00 White Blood Count 7.6 K/UL (4.8-10.8) Red Blood Count 4.37 M/UL (4.20-5.40) Hemoglobin 13.2 G/DL (12.0-16.0) Hematocrit 40.2 % (37.0-47.0) Mean Corpuscular Volume 92 FL (80-99) Mean Corpuscular Hemoglobin 30.2 PG (27.0-31.0) Mean Corpuscular Hemoglobin Concent 32.8 G/DL (32.0-36.0) Red Cell Distribution Width 12.4 % (11.6-14.8) Platelet Count 223 K/UL (150-450) Mean Platelet Volume 6.8 FL (6.5-10.1) Neutrophils (%) (Auto) 68.3 % (45.0-75.0) Lymphocytes (%) (Auto) 19.2 % (20.0-45.0) L Monocytes (%) (Auto) 11.2 % (1.0-10.0) H Eosinophils (%) (Auto) 1.0 % (0.0-3.0) Basophils (%) (Auto) 0.4 % (0.0-2.0) Sodium Level 139 MMOL/L (136-145) Potassium Level 4.1 MMOL/L (3.5-5.1) Chloride Level 102 MMOL/L (98-107) Carbon Dioxide Level 32 MMOL/L (21-32) Anion Gap 5 mmol/L (5-15) Blood Urea Nitrogen 17 mg/dL (7-18) Creatinine 0.5 MG/DL (0.55-1.30) L Estimat Glomerular Filtration Rate mL/min (>60) Glucose Level 98 MG/DL (74-106) Calcium Level 9.0 MG/DL (8.5-10.1) Height (Feet): 5 Height (Inches): 1.00 Weight (Pounds): 95 General Appearance: alert, thin Cardiovascular: normal rate Abdominal Exam: GT site - c/d/i Objective Reported by the RN the patient tolerated approximately 25% of her meals Remi Rico NP Aug 18, 2019 10:37
--- NOTE | 2019-08-18 11:37 | NUR ---
NURSE NOTES: given report to alexandra sweeney spoke to VIGNESH De La Rosa feed house supervisor.
--- NOTE | 2019-08-18 11:40 | NUR ---
RN CHRONIC NOTES RECEIVE CALL FROM JOSE RAUL AT [facility], [place] TO SEND [place] PT TODAY. PT TO GO TO ROOM 21 BED A.
[2019-08-18 12:00] VITALS: BP 122/62
--- NOTE | 2019-08-18 12:13 | Pulmonology Progress Note ---
Assessment/Plan Problems: (1) Failure to thrive (2) At high risk for aspiration (3) Diabetes (4) Protein-calorie malnutrition, severe (5) Limited mobility in bed (6) Flexion contractures Assessment/Plan all family members are at bed site. aspiration precaution symptomatic treatment sliding scale diabetic diet check electrolytes titrate fio2 to sat of 92%\ PEG is done, tolerating very well Subjective ROS Limited/Unobtainable: No Constitutional: Reports: no symptoms HEENT: Repors: no symptoms Allergies: Coded Allergies: LISINOPRIL (Verified Allergy, Unknown, 08/05/19) Objective Last 24 Hour Vital Signs Date Time Temp Pulse Resp B/P (MAP) Pulse Ox O2 Delivery O2 Flow Rate FiO2 08/18/19 09:11 118/54 08/18/19 09:00 Room Air 08/18/19 08:00 97.7 62 19 118/54 (75) 99 08/18/19 04:00 97.9 60 18 114/50 (71) 100 08/18/19 00:00 98.3 66 18 106/50 (68) 97 08/17/19 21:00 Room Air 08/17/19 20:00 98.6 70 18 129/55 (79) 99 08/17/19 16:00 97.2 61 19 108/83 (91) 100 Intake and Output 08/17/19 08/18/19 18:59 06:59 Intake Total 550 ml 930 ml Output Total 400 ml 750 ml Balance 150 ml 180 ml Intake Oral 100 ml Free Water 400 ml 330 ml Tube Feeding 50 ml 600 ml Output Urine Total 400 ml 750 ml # Bowel Movements 1 Objective General Appearance: cachectic HEENT: normocephalic, atraumatic Respiratory/Chest: chest wall non-tender, lungs clear Breasts: no masses Cardiovascular: normal peripheral pulses Abdomen: normal bowel sounds, soft, non tender Genitourinary: normal external genitalia Extremities: no clubbing Neurologic/Psychiatric: aco coordinator II-XII grossly normal Lymphatic: no neck adenopathy Laboratory Tests 08/18/19 06:00: White Blood Count 7.6, Red Blood Count 4.37, Hemoglobin 13.2, Hematocrit 40.2, Mean Corpuscular Volume 92, Mean Corpuscular Hemoglobin 30.2, Mean Corpuscular Hemoglobin Concent 32.8, Red Cell Distribution Width 12.4, Platelet Count 223, Mean Platelet Volume 6.8, Neutrophils (%) (Auto) 68.3, Lymphocytes (%) (Auto) 19.2L, Monocytes (%) (Auto) 11.2H, Eosinophils (%) (Auto) 1.0, Basophils (%) ( Auto) 0.4, Sodium Level 139, Potassium Level 4.1, Chloride Level 102, Carbon Dioxide Level 32, Anion Gap 5, Blood Urea Nitrogen 17, Creatinine 0.5L, Estimat Glomerular Filtration Rate , Glucose Level 98, Calcium Level 9.0 Current Medications Medications (Trade) Dose Ordered Sig/Patricia Route PRN Reason Start Time Stop Time Status Last Admin Dose Admin Acetaminophen (Tylenol) 650 mg Q4H PRN ORAL fever 08/06/19 08:30 09/05/19 08:29 08/17/19 20:46 Clonidine HCl (Catapres Tab) 0.1 mg Q6H PRN ORAL sbp above 160 08/06/19 11:15 09/05/19 11:14 08/14/19 09:58 Dextrose (Dextrose 50%) 25 ml Q30M PRN IV Hypoglycemia 08/06/19 08:30 09/05/19 08:29 Dextrose (Dextrose 50%) 50 ml Q30M PRN IV Hypoglycemia 08/06/19 08:30 09/05/19 08:29 Dronabinol (Marinol) 2.5 mg TID ORAL 08/08/19 13:00 09/07/19 12:59 08/18/19 09:11 Heparin Sodium (Porcine) (Heparin 5000 units/ml) 5,000 units EVERY 12 HOURS SUBQ 08/06/19 09:00 09/05/19 08:59 08/18/19 09:13 Insulin Aspart (NovoLOG) BEFORE MEALS AND HS SUBQ 08/06/19 11:30 09/05/19 11:29 08/18/19 12:05 Losartan Potassium (Cozaar) 25 mg DAILY ORAL 08/06/19 12:00 09/05/19 11:59 08/18/19 09:11 Ondansetron HCl (Zofran) 4 mg Q6H PRN IVP Nausea & Vomiting 08/06/19 08:30 09/05/19 08:29 Polyethylene Glycol (Miralax) 17 gm HSPRN PRN ORAL Constipation 08/06/19 08:30 09/05/19 08:29 Vancomycin HCl (Firvanq) 125 mg FOUR TIMES A DAY ORAL 08/08/19 13:00 08/18/19 23:59 08/18/19 09:11 Arnaldo Easton MD Aug 18, 2019 12:13
--- NOTE | 2019-08-18 12:56 | NUR ---
NURSE NOTES: patient discharged to [facility] with stable condition. no respiratory distress noted. no c/o pain at this time. disconnected GT feeding. flushed with water. removed IV and ID band. provided dc packet to ambulance personnel. checked and counted belongings with daughter. emptied urine bag. flushed f/c.
--- NOTE | 2019-08-20 17:36 | Discharge Summary ---
Discharge Summary Discharge Summary _ DATE OF ADMISSION: 08/05/2019 DATE OF DISCHARGE: 08/18/2019 DISCHARGED BY: Dr. Reynold Saldivar CONSULTANTS: Dr. Arnaldo Wilkinson BRIEF HOSPITAL COURSE: Patient is an 84-year-old female, presented to ED for evaluation of failure to thrive, decreased appetite and possible fever the assisted. Patient was nonverbal at baseline. Unable to provide any additional history. She has medical history significant for diabetes mellitus, hypertension, asthma. Upon evaluation at the ED, patient had a low-grade fever of 99.5. She was bradycardic with heart rate of 52. EKG revealed sinus bradycardia, no changes. Blood work did not show any leukocytosis. Hemoglobin and hematocrit were stable. Chemistry stable. Renal function stable. Glucose 95. Lactic acid 0.8. proBNP 501. Albumin 3.2. Chest x-ray did not show any acute pathology. Urinalysis revealed pyuria with moderate bacteria. She was then admitted for evaluation of UTI, cachexia, and bradycardia. She was admitted to medical floor. She was given gentle IV fluid hydration. She was started empirically on ceftriaxone. She was given Cozaar for blood pressure management. She was placed on pulmonary support. She was given nebulizer treatment. She was placed on precaution. She was given bowel regimen. GI was consulted. Swallow evaluation was ordered. She was assessed for need for G-tube. She was placed on calorie count. Patient had positive urinalysis and urine culture showed growth of E. coli. She developed diarrhea and C. difficile toxin was positive. ID was consulted. She was continued on ceftriaxone. She was started on p.o. vancomycin. The calorie count showed nutritional needs are not being met. Family initially refused PEG placement. Neurologic evaluation. Patient has diffuse multifocal encephalopathy probably metabolic superimposed on dementia, probably Alzheimer's disease. Family does not know why she cannot walk. Family consented to PEG tube placement. On 08/16/2019, she underwent upper endoscopy with PEG tube placement. EGD showed evidence of diffuse gastritis. No evidence of any active ulceration or bleeding. Diarrhea was resolving. She was tolerating G-tube feeding. She was eventually discharged back to assisted. FINAL DIAGNOSES: Failure to thrive C. difficile diarrhea. Urinary infection with E. coli. 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 DISCHARGE MEDICATIONS: Refer to Discharge Medication List. I have been assigned to complete a discharge summary on this account, I was not involved with the patient's management.--MARYANN Chaves Jacqueline Robles NP Aug 20, 2019 17:36
== END 2019-08-18 13:10 | DRG 689 ==
LOC: EDBD 21:53 → EMR 22:25 → 3E 22:35 → EDBEDREQ 22:58 → 4E 08-07 06:29
PROC: 0DH63UZ Insertion of Feeding Device into Stomach, Percutaneous Approach (ICD-10-PCS; principal; 2019-08-16 11:56)
DX: N39.0 Urinary tract infection, site not specified (principal); E43 Unspecified severe protein-calorie malnutrition; G93.41 Metabolic encephalopathy; Z68.1 Body mass index [BMI] 19.9 or less, adult; A04.72 Enterocolitis due to Clostridium difficile, not specified as recurrent; R62.7 Adult failure to thrive; Z88.8 Allergy status to other drugs, medicaments and biological substances; E11.9 Type 2 diabetes mellitus without complications; R00.1 Bradycardia, unspecified; I10 Essential (primary) hypertension; J45.909 Unspecified asthma, uncomplicated; B96.20 Unspecified Escherichia coli [E. coli] as the cause of diseases classified elsewhere; Z79.4 Long term (current) use of insulin; R13.10 Dysphagia, unspecified; K29.70 Gastritis, unspecified, without bleeding; M24.50 Contracture, unspecified joint
CPT/HCPCS: 36415; 71045; 80048; 80053; 80061; 81003; 82140; 82962; 83036; 83605; 83735; 83880; 84100; 84443; 85025; 85610; 85730; 87040; 87081; 87086; 87181; 87324; 93005; 94003; 94150; 96361; 96365; 99285; J1815